=== PATIENT | male | born 1940 | race American Indian/Alaskan Native ===

== ENCOUNTER 2016-11-11 13:34 | Emergency (ER) | payer MEDICARE, OTHER ==
[2016-11-11 14:46] LABS: Basophils % (Auto) 0.6 % (0.0-1.8); Hematocrit 40.4 % (35.5-45.6); Hemoglobin 13.1 gm/dl (11.8-15.2); Mean Corpuscular HGB Conc 32 % (32-34); Mean Corpuscular Hemoglobin 28 pg (28-32); Mean Corpuscular Volume 87 fl (84-94); Platelet Count 143 K/mm3 (140-440); Red Blood Count 4.64 M/mm3 (3.65-5.03)
[2016-11-11 14:53] LABS: Anion Gap 18 mmol/L; Blood Urea Nitrogen 17 mg/dL (9-20); Calcium 9.2 mg/dL (8.4-10.2); Carbon Dioxide 25 mmol/L (22-30); Chloride 90.3 mmol/L (98-107); Potassium 5.7 mmol/L (3.6-5.0); Sodium 128 mmol/L (137-145)
[2016-11-11 14:56] LABS: Glucose 670 mg/dL (75-100)
[2016-11-11 15:30] LABS: Bilirubin,Urine NEG (Negative); Blood,Urine NEG (Negative); Ketones,Urine NEG (Negative); Leukocyte Esterase,Urine NEG (Negative); Nitrite,Urine NEG (Negative); Protein,Urine <15 mg/dL mg/dL (Negative); Urobilinogen,Urine < 2.0 mg/dL (<2.0); WBC,Urine < 1.0 /HPF (0.0-6.0)
[2016-11-11] MEDS ORDERED: NACL 0.9% 1000 ML 1,000 ML IV ONE ×2 (19:26→22:03)
--- NOTE | 2016-11-11 19:42 | Emergency Department Report ---
ED General Adult HPI - General Chief complaint: Hyperglycemia Stated complaint: BLOOD SUGAR HIGH/PAIN IN LEGS AND FEET Time Seen by Provider: 11/11/16 19:25 Source: patient Mode of arrival: Ambulatory Limitations: No Limitations - History of Present Illness Initial comments: Patient is 76 years old male history of diabetes came today with high blood sugar more than 500s when he was checked in triage was 670. Patient stated that he has been taking his 70/30 insulin 25 units daily, he stated that his diet is not as it supposed to be. He denied any fever or chest pain shortness of breath cough nausea vomiting. Patient stated that he is being going to the bathroom a lot for urination. -: Gradual - Related Data Home Medications Medication Instructions Recorded Confirmed Last Taken Aspirin [Aspirin BABY CHEW TAB] 81 mg PO QDAY 01/09/13 01/09/13 01/09/13 06:00 81mg Carvedilol [Coreg] 25 mg PO BID 01/09/13 01/09/13 01/09/13 06:00 25mg Gabapentin 300 mg PO 01/09/13 01/09/13 01/09/13 06:00 300mg Insulin NPH/Regular [NovoLIN 70/30] 25 units SQ DAILY 01/09/13 01/09/13 06:00 12.5u Sertraline [Zoloft] 100 mg PO QDAY 01/09/13 01/09/13 01/09/13 06:00 100mg Simvastatin 40 mg PO QHS 01/09/13 01/09/13 01/09/13 06:00 40mg Valsartan [Diovan] 320 mg PO QDAY 01/09/13 01/09/13 01/09/13 06:00 320mg Allergies Allergy/AdvReac Type Severity Reaction Status Date / Time No Known Allergies Allergy Verified 01/09/13 07:38 ED Review of Systems ROS: Stated complaint: BLOOD SUGAR HIGH/PAIN IN LEGS AND FEET Other details as noted in HPI Comment: All other systems reviewed and negative Constitutional: denies: see HPI, fever Eyes: denies: eye pain Respiratory: denies: cough, shortness of breath Cardiovascular: denies: chest pain, palpitations Gastrointestinal: denies: abdominal pain, nausea, vomiting Musculoskeletal: denies: back pain Neurological: denies: headache, weakness ED Past Medical Hx - Past Medical History Hx Heart Attack/AMI: Yes (2003) Hx Diabetes: Yes Hx Arthritis: Yes - Surgical History Hx Coronary Stent: Yes Hx Internal Defibrillator: Yes - Social History Smoking Status: Never Smoker Substance Use Type: None - Medications Home Medications: Home Medications Medication Instructions Recorded Confirmed Last Taken Type Aspirin [Aspirin BABY CHEW TAB] 81 mg PO QDAY 01/09/13 01/09/13 01/09/13 06:00 History 81mg Carvedilol [Coreg] 25 mg PO BID 01/09/13 01/09/13 01/09/13 06:00 History 25mg Gabapentin 300 mg PO 01/09/13 01/09/13 01/09/13 06:00 History 300mg Insulin NPH/Regular [NovoLIN 70/30] 25 units SQ DAILY 01/09/13 01/09/13 06:00 History 12.5u Sertraline [Zoloft] 100 mg PO QDAY 01/09/13 01/09/13 01/09/13 06:00 History 100mg Simvastatin 40 mg PO QHS 01/09/13 01/09/13 01/09/13 06:00 History 40mg Valsartan [Diovan] 320 mg PO QDAY 01/09/13 01/09/13 01/09/13 06:00 History 320mg ED Physical Exam - General Limitations: No Limitations General appearance: alert - Head Head exam: Present: atraumatic, normocephalic - Eye Eye exam: Present: normal appearance - ENT ENT exam: Present: normal exam, mucous membranes dry - Neck Neck exam: Present: normal inspection, full ROM. Absent: tenderness, meningismus, lymphadenopathy, thyromegaly - Respiratory Respiratory exam: Present: normal lung sounds bilaterally. Absent: respiratory distress, wheezes, rales, rhonchi, chest wall tenderness, accessory muscle use, decreased breath sounds, prolonged expiratory - Cardiovascular Cardiovascular Exam: Absent: regular rate, normal rhythm, normal heart sounds - GI/Abdominal GI/Abdominal exam: Present: soft, normal bowel sounds. Absent: distended, tenderness, guarding, rebound, rigid, organomegaly, mass, bruit, pulsatile mass , hernia - Extremities Exam Extremities exam: Present: normal inspection. Absent: tenderness - Back Exam Back exam: Present: normal inspection. Absent: CVA tenderness (R), CVA tenderness (L) - Neurological Exam Neurological exam: Present: alert, oriented X3, CN II-XII intact, normal gait. Absent: abnormal gait, motor sensory deficit - Skin Skin exam: Present: warm, dry, intact ED Course Vital Signs 11/11/16 11/11/16 11/11/16 14:14 20:00 23:13 Temperature 98.5 F 97.4 F L 98.0 F Pulse Rate 84 55 L 72 Respiratory 16 16 Rate Blood Pressure 168/79 Blood Pressure 151/50 121/98 [Right] O2 Sat by Pulse 100 100 98 Oximetry - Reevaluation(s) Reevaluation #1: 11/11/16 22:48 Patient blood [id number]. ED Medical Decision Making - Lab Data Result diagrams: 11/11/16 14:22 11/11/16 14:22 - EKG Data -: EKG Interpreted by Me EKG shows normal: sinus rhythm Rate: bradycardia - EKG Data Interpretation: no acute changes - Medical Decision Making Patient improved the blood sugar of 237. I discussed with the patient the importance of controlling his blood sugar and to stick to a diabetic diet, patient understood. I asked the patient to follow up with his primary care physician for adjustment of his insulin dose. Critical care attestation.: If time is entered above; I have spent that time in minutes in the direct care of this critically ill patient, excluding procedure time. ED Disposition Clinical Impression: Hyperglycemia, Dehydration Disposition: DC-01 TO HOME OR SELFCARE Is pt being admited?: No Condition: Stable Instructions: Diabetic Hyperglycemia (ED) Referrals: YOANDY ASHBY MD [Primary Care Provider] - 3-5 Days
[2016-11-11 23:15] VITALS: BP 121/98
== END 2016-11-11 23:13 | disposition home or self-care (01) ==
LOC: ED 13:34
DX: E11.65 Type 2 diabetes mellitus with hyperglycemia (principal); E86.0 Dehydration; I50.9 Heart failure, unspecified
CPT/HCPCS: 36415; 80048; 81001; 82805; 82962; 84484; 85025; 93005; 93010; 96361; 96374; 99284; J7030; J1815

== ENCOUNTER 2018-08-30 09:34 | Inpatient (IN) | payer MEDICARE, OTHER ==
[2018-08-30] MEDS ORDERED: PROTONIX IV ONE (11:03)
[2018-08-30] MEDS ORDERED: NACL 0.9% 1000 ML 1,000 ML IV ONE (11:03)
--- NOTE | 2018-08-30 11:10 | Emergency Department Report ---
HPI - General Chief Complaint: Abdominal Pain Time Seen by Provider: 08/30/18 10:46 - HPI HPI: Room 1 The patient is a 78 year old male presenting with a chief complaint of dizziness. The patient states the past 2 days intermittent dizziness. Patient states he has fallen and lost consciousness several times. The patient states yesterday had an episode of nausea and vomiting black colored emesis. The patient states he started having black stools yesterday but a visit to taking aren't supplements. Patient states she is having left flank pain since last night and he believes he bruised his ribs during this fall. Patient gives his pain is score of 8/10 Location: [See above] Duration: [See above] Quality: [See above] Severity: [See above] Modifying factors: [see above] Context: [see above] Mode of transportation: [not driving] ED Past Medical Hx - Past Medical History Previous Medical History?: Yes Hx Heart Attack/AMI: Yes (2003) Hx Diabetes: Yes Hx Arthritis: Yes - Surgical History Hx Coronary Stent: Yes Hx Internal Defibrillator: Yes - Family History Family history: no significant - Social History Smoking Status: Current Every Day Smoker Substance Use Type: Alcohol - Medications Home Medications: Home Medications Medication Instructions Recorded Confirmed Last Taken Type Carvedilol [Coreg] 25 mg PO BID 01/09/13 08/30/18 01/09/13 06:00 History 25mg Gabapentin 300 mg PO TID 01/09/13 08/30/18 01/09/13 06:00 History 300mg Insulin NPH/Regular [NovoLIN 70/30] 25 units SUB-Q DAILY 01/09/13 08/30/18 08/29/18 History Sertraline [Zoloft] 100 mg PO QDAY 01/09/13 08/30/18 01/09/13 06:00 History 100mg Simvastatin 40 mg PO QHS 01/09/13 08/30/18 01/09/13 06:00 History 40mg Doxazosin Mesylate [Cardura] 2 mg PO BID 08/30/18 08/30/18 Unknown History Losartan [Cozaar] 100 mg PO QDAY 08/30/18 08/30/18 Unknown History Naltrexone HCl 50 mg PO QDAY 08/30/18 08/30/18 Unknown History ED Review of Systems ROS: Stated complaint: DIZZYNESS Other details as noted in HPI Constitutional: no symptoms reported Eyes: denies: eye pain ENT: denies: throat pain Respiratory: no symptoms reported Cardiovascular: denies: chest pain Endocrine: no symptoms reported Gastrointestinal: nausea, vomiting, melena Genitourinary: denies: dysuria Musculoskeletal: denies: back pain Neurological: denies: headache Physical Exam - Physical Exam Vital Signs: Vital Signs 08/30/18 08/30/18 10:29 10:39 Temperature 98.2 F Pulse Rate 114 H Respiratory 18 18 Rate Blood Pressure 139/89 Blood Pressure 139/89 [Right] O2 Sat by Pulse 98 98 Oximetry Physical Exam: GENERAL: The patient is well-developed well-nourished male lying on stretcher not appearing to be in acute distress. [] HEENT: Normocephalic. Atraumatic. Extraocular motions are intact. Patient has moist mucous membranes. NECK: Supple. Trachea midline CHEST/LUNGS: Clear to auscultation. There is no respiratory distress noted. HEART/CARDIOVASCULAR: Regular. There is tachycardia. There is no gallop rub or murmur. ABDOMEN: Abdomen is soft, nontender. Patient has normal bowel sounds. There is no abdominal distention. SKIN: There is no rash. There is no edema. There is no diaphoresis. NEURO: The patient is awake, alert, and oriented. The patient is cooperative. The patient has normal speech MUSCULOSKELETAL: There is no evidence of acute injury. RECTAL: Melena, guaiac positive ED Course Vital Signs 08/30/18 08/30/18 10:29 10:39 Temperature 98.2 F Pulse Rate 114 H Respiratory 18 18 Rate Blood Pressure 139/89 Blood Pressure 139/89 [Right] O2 Sat by Pulse 98 98 Oximetry - Consultations Consultation #1: 08/30/18 12:05 GI paged- case discussed with [facility] Medical Decision Making - Lab Data Result diagrams: 08/30/18 11:15 08/30/18 11:15 Laboratory Tests 08/30/18 08/30/18 08/30/18 11:15 11:15 11:15 WBC 12.4 H RBC 3.37 L Hgb 11.0 L Hct 32.1 L MCV 95 H MCH 33 H MCHC 34 RDW 15.1 Plt Count 210 Lymph % (Auto) 8.9 L [place] % (Auto) 5.9 Eos % (Auto) 0.1 Baso % (Auto) 0.2 Lymph # 1.1 L [place] # 0.7 Eos # 0.0 Baso # 0.0 Seg Neutrophils % 84.9 H Seg Neutrophils # 10.5 H PT 13.9 INR 1.10 APTT 25.4 VBG pH Sodium 134 L Potassium 4.3 Chloride 97.7 L Carbon Dioxide 20 L Anion Gap 21 BUN 74 H Creatinine 1.8 H Estimated GFR 45 BUN/Creatinine Ratio 41 Glucose 417 H POC Glucose Calcium 8.9 Total Bilirubin 1.00 AST 26 ALT 19 Alkaline Phosphatase 50 Total Protein 6.6 Albumin 3.6 L Albumin/Globulin Ratio 1.2 Urine Color Urine Turbidity Urine pH Ur Specific [place] Urine Protein Urine Glucose (UA) Urine Ketones Urine Blood Urine Nitrite Urine Bilirubin Urine Urobilinogen Ur Leukocyte Esterase Urine WBC (Auto) Urine RBC (Auto) U Epithel Cells (Auto) Hyaline Casts Urine Mucus Blood Type Antibody Screen 08/30/18 08/30/18 08/30/18 11:15 11:15 12:56 WBC RBC Hgb Hct MCV MCH MCHC RDW Plt Count Lymph % (Auto) [place] % (Auto) Eos % (Auto) Baso % (Auto) Lymph # [place] # Eos # Baso # Seg Neutrophils % Seg Neutrophils # PT INR APTT VBG pH 7.390 Sodium Potassium Chloride Carbon Dioxide Anion Gap BUN Creatinine Estimated GFR BUN/Creatinine Ratio Glucose POC Glucose 367 H Calcium Total Bilirubin AST ALT Alkaline Phosphatase Total Protein Albumin Albumin/Globulin Ratio Urine Color Urine Turbidity Urine pH Ur Specific [place] Urine Protein Urine Glucose (UA) Urine Ketones Urine Blood Urine Nitrite Urine Bilirubin Urine Urobilinogen Ur Leukocyte Esterase Urine WBC (Auto) Urine RBC (Auto) U Epithel Cells (Auto) Hyaline Casts Urine Mucus Blood Type O POSITIVE Antibody Screen Negative 08/30/18 Unknown WBC RBC Hgb Hct MCV MCH MCHC RDW Plt Count Lymph % (Auto) [place] % (Auto) Eos % (Auto) Baso % (Auto) Lymph # [place] # Eos # Baso # Seg Neutrophils % Seg Neutrophils # PT INR APTT VBG pH Sodium Potassium Chloride Carbon Dioxide Anion Gap BUN Creatinine Estimated GFR BUN/Creatinine Ratio Glucose POC Glucose Calcium Total Bilirubin AST ALT Alkaline Phosphatase Total Protein Albumin Albumin/Globulin Ratio Urine Color Yellow Urine Turbidity Slightly-cloudy Urine pH 5.0 Ur Specific [place] 1.019 Urine Protein 30 mg/dl Urine Glucose (UA) 50 Urine Ketones Neg Urine Blood Neg Urine Nitrite Neg Urine Bilirubin Neg Urine Urobilinogen < 2.0 Ur Leukocyte Esterase Neg Urine WBC (Auto) 1.0 Urine RBC (Auto) 2.0 U Epithel Cells (Auto) 1.0 Hyaline Casts 9 Urine Mucus Few Blood Type Antibody Screen - Radiology Data Radiology results: report reviewed (chest x-ray with left rib series), image reviewed (chest x-ray with left rib series) interpreted by me: Chest x-ray with left rib series. No pneumothorax. No displaced rib fractures appreciated - Differential Diagnosis GI bleed Critical care attestation.: If time is entered above; I have spent that time in minutes in the direct care of this critically ill patient, excluding procedure time. ED Disposition Clinical Impression: GI bleed Disposition: OP ADMIT IP TO THIS HOSP Is pt being admited?: Yes Does the pt Need Aspirin: No Condition: Fair Time of Disposition: 12:05 (hospitalist paged (Dr Larson))
[2018-08-30 11:31] LABS: Basophils % (Auto) 0.2 % (0.0-1.8); Eosinophils % (Auto) 0.1 % (0.0-4.3); Hematocrit 32.1 % (35.5-45.6); Lymphocytes # (Auto) 1.1 K/mm3 (1.2-5.4); Lymphocytes % (Auto) 8.9 % (13.4-35.0); Mean Corpuscular HGB Conc 34 % (32-34); Mean Corpuscular Volume 95 fl (84-94); Monocytes # (Auto) 0.7 K/mm3 (0.0-0.8); Monocytes % (Auto) 5.9 % (0.0-7.3); Platelet Count 210 K/mm3 (140-440); Red Blood Count 3.37 M/mm3 (3.65-5.03); Red Cell Distribution Width 15.1 % (13.2-15.2)
[2018-08-30 11:45] LABS: INR 1.1 (0.87-1.13)
[2018-08-30 11:46] LABS: Partial Thromboplastin Time 25.4 Sec. (24.2-36.6)
[2018-08-30 11:54] LABS: Albumin 3.6 g/dL (3.9-5); Calcium 8.9 mg/dL (8.4-10.2)
[2018-08-30 11:54] LABS: Bilirubin,Urine NEG (Negative); Blood,Urine NEG (Negative); Color,Urine Yellow (Yellow); Hyaline Casts,Urine 9 /LPF; Mucus,Urine FEW /HPF; Urobilinogen,Urine < 2.0 mg/dL (<2.0)
--- NOTE | 2018-08-30 13:00 | XRay Report ---
LEFT RIBS WITH AP CHEST HISTORY: Fall and left rib pain. COMPARISON: None. TECHNIQUE: 4 views were obtained. FINDINGS: Bones: No fracture or dislocation. Joint spaces: Maintained. Soft tissues: No significant abnormality. Additional findings: Normal heart with an AICD lead. The lungs are normally expanded and clear. Delfina l pulmonary vasculature. No pneumothorax. IMPRESSION: 1. No rib fracture. 2. No acute cardiopulmonary process. Signer Name: Corona Oliveros MD Signed: 08/30/2018 12:56 PM Workstation Name: [id number]
--- NOTE | 2018-08-30 13:28 | Gastroenterology Consultation ---
History of Present Illness - Reason for Consult Consult date: 08/30/18 GI bleed, melena Requesting physician: ANTONIO RUDOLPH - History of Present Illness Patient is a 78 y/o male with PMH of DM, HLD, and NC/CHF (s/p AICD) who presented to ED with c/o coffee-ground emesis and black stools that began yesterday with associated dizziness to which GI has been consulted. This afternoon patient was resting on stretcher in ED in mild distress (tachycardia/slight hypotension). Reports 1 episode of black colored emesis yesterday with multiple episode of black stool that have continued today (melena noted upon rectal exam by ER provider). No hematemesis or hematochezia. Denies fever, wt loss, CP, SOB, abdominal pain (has left flank pain s/p fall overnight), diarrhea, or constipation. Takes a daily ASA. Has a hx of prior GI bleeding in 2003 per patient report with etiology unknown. No known hx of PUD or liver disease. Last colonoscopy by Dr. Marmolejo in our group was in 2017 that showed severe diverticulosis and external/internal hemorrhoids. Past History Past Medical History: other (as per HPI) Past Surgical History: Other (AICD) Social history: smoking, other (alcohol) Medications and Allergies Allergies Allergy/AdvReac Type Severity Reaction Status Date / Time No Known Allergies Allergy Verified 01/09/13 07:38 Home Medications Medication Instructions Recorded Confirmed Last Taken Type Carvedilol [Coreg] 25 mg PO BID 01/09/13 08/30/18 01/09/13 06:00 History 25mg Gabapentin 300 mg PO TID 01/09/13 08/30/18 01/09/13 06:00 History 300mg Insulin NPH/Regular [NovoLIN 70/30] 25 units SUB-Q DAILY 01/09/13 08/30/18 08/29/18 History Sertraline [Zoloft] 100 mg PO QDAY 01/09/13 08/30/18 01/09/13 06:00 History 100mg Simvastatin 40 mg PO QHS 01/09/13 08/30/18 01/09/13 06:00 History 40mg Doxazosin Mesylate [Cardura] 2 mg PO BID 08/30/18 08/30/18 Unknown History Losartan [Cozaar] 100 mg PO QDAY 08/30/18 08/30/18 Unknown History Naltrexone HCl 50 mg PO QDAY 08/30/18 08/30/18 Unknown History Active Meds: Active Medications Pantoprazole Sodium 80 mg/ (Sodium Chloride) 100 mls @ 10 mls/hr IV DIRECT CANDIE medications reviewed/updated as required Review of Systems - Review of Systems All systems: negative Gastrointestinal: coffee ground emesis, melena Exam - Constitutional Vital Signs: Temp Pulse Resp BP Pulse Ox 98.2 F 108 H 23 102/69 98 08/30/18 10:29 08/30/18 12:15 08/30/18 12:15 08/30/18 12:15 08/30/18 12:15 General appearance: mild distress - Respiratory Respiratory effort: normal - Cardiovascular Rhythm: other (tachycardia) - Gastrointestinal General gastrointestinal: Present: soft, non-tender, non-distended, normal bowel sounds - Neurologic Neurological: alert and oriented x3 - Labs CBC & Chem 7: 08/30/18 11:15 08/30/18 11:15 Lab Results: Laboratory Results - last 24 hr 08/30/18 08/30/18 08/30/18 11:15 11:15 11:15 WBC 12.4 H RBC 3.37 L Hgb 11.0 L Hct 32.1 L MCV 95 H MCH 33 H MCHC 34 RDW 15.1 Plt Count 210 Lymph % (Auto) 8.9 L [place] % (Auto) 5.9 Eos % (Auto) 0.1 Baso % (Auto) 0.2 Lymph # 1.1 L [place] # 0.7 Eos # 0.0 Baso # 0.0 Seg Neutrophils % 84.9 H Seg Neutrophils # 10.5 H PT 13.9 INR 1.10 APTT 25.4 VBG pH Sodium 134 L Potassium 4.3 Chloride 97.7 L Carbon Dioxide 20 L Anion Gap 21 BUN 74 H Creatinine 1.8 H Estimated GFR 45 BUN/Creatinine Ratio 41 Glucose 417 H POC Glucose Calcium 8.9 Total Bilirubin 1.00 AST 26 ALT 19 Alkaline Phosphatase 50 Total Protein 6.6 Albumin 3.6 L Albumin/Globulin Ratio 1.2 Urine Color Urine Turbidity Urine pH Ur Specific [place] Urine Protein Urine Glucose (UA) Urine Ketones Urine Blood Urine Nitrite Urine Bilirubin Urine Urobilinogen Ur Leukocyte Esterase Urine WBC (Auto) Urine RBC (Auto) U Epithel Cells (Auto) Hyaline Casts Urine Mucus Blood Type Antibody Screen 08/30/18 08/30/18 08/30/18 11:15 11:15 12:56 WBC RBC Hgb Hct MCV MCH MCHC RDW Plt Count Lymph % (Auto) [place] % (Auto) Eos % (Auto) Baso % (Auto) Lymph # [place] # Eos # Baso # Seg Neutrophils % Seg Neutrophils # PT INR APTT VBG pH 7.390 Sodium Potassium Chloride Carbon Dioxide Anion Gap BUN Creatinine Estimated GFR BUN/Creatinine Ratio Glucose POC Glucose 367 H Calcium Total Bilirubin AST ALT Alkaline Phosphatase Total Protein Albumin Albumin/Globulin Ratio Urine Color Urine Turbidity Urine pH Ur Specific [place] Urine Protein Urine Glucose (UA) Urine Ketones Urine Blood Urine Nitrite Urine Bilirubin Urine Urobilinogen Ur Leukocyte Esterase Urine WBC (Auto) Urine RBC (Auto) U Epithel Cells (Auto) Hyaline Casts Urine Mucus Blood Type O POSITIVE Antibody Screen Negative 08/30/18 Unknown WBC RBC Hgb Hct MCV MCH MCHC RDW Plt Count Lymph % (Auto) [place] % (Auto) Eos % (Auto) Baso % (Auto) Lymph # [place] # Eos # Baso # Seg Neutrophils % Seg Neutrophils # PT INR APTT VBG pH Sodium Potassium Chloride Carbon Dioxide Anion Gap BUN Creatinine Estimated GFR BUN/Creatinine Ratio Glucose POC Glucose Calcium Total Bilirubin AST ALT Alkaline Phosphatase Total Protein Albumin Albumin/Globulin Ratio Urine Color Yellow Urine Turbidity Slightly-cloudy Urine pH 5.0 Ur Specific [place] 1.019 Urine Protein 30 mg/dl Urine Glucose (UA) 50 Urine Ketones Neg Urine Blood Neg Urine Nitrite Neg Urine Bilirubin Neg Urine Urobilinogen < 2.0 Ur Leukocyte Esterase Neg Urine WBC (Auto) 1.0 Urine RBC (Auto) 2.0 U Epithel Cells (Auto) 1.0 Hyaline Casts 9 Urine Mucus Few Blood Type Antibody Screen Assessment and Plan 1.UGIB 2.melena/coffee-ground emesis -H/H 11.0/32.1 -continue to monitor H/H and transfuse as needed -hold blood thinning medication -etiology-possible ulcer vs other -will schedule for EGD today -Keep NPO -start on protonix drip -continue supportive care -will follow
[2018-08-30] MEDS ORDERED: APRESOLINE IV ONE (13:57)
[2018-08-30] MEDS ORDERED: D50W (25GM) Syringe IV PRN (13:59)
[2018-08-30] MEDS ORDERED: NACL 0.9% 1000 ML 1,000 ML ONE (15:50)
--- NOTE | 2018-08-30 16:31 | Anesthesia Day of Surgery ---
Anesthesia Day of Surgery - Day of Surgery Patient Examined: Yes Patient H&P Reviewed: Yes Patient is NPO: Yes
--- NOTE | 2018-08-30 16:35 | Anesthesia Consultation ---
Anesthesia Consult and Med Hx Date of service: 08/30/18 - Airway Anesthetic Teeth Evaluation: Poor ROM Head & Neck: Adequate Mental/Hyoid Distance: Adequate Mallampati Class: Class II Intubation Access Assessment: Probably Good - Pre-Operative Health Status ASA Pre-Surgery Classification: ASA3 Proposed Anesthetic Plan: MAC - Pulmonary Hx Smoking: Yes Hx Asthma: No COPD: Yes Hx Sleep Apnea: Yes (cpap) - Cardiovascular System Hx Hypertension: Yes (high cholesterol) Hx Heart Attack/AMI: Yes (2003) Hx Percutaneous Transluminal Coronary Angioplasty (PTCA): Yes (2003) Hx Internal Defibrillator: Yes - Central Nervous System Hx Neuromuscular Disorder: Yes (left side(rib)pain from recent fall) Hx Seizures: No Hx Psychiatric Problems: Yes - Endocrine Hx Renal Disease: No Hx Liver Disease: No Hx Non-Insulin Dependent Diabetes: Yes - Hematic Hx Sickle Cell Disease: No - Other Systems Hx Cancer: No
[2018-08-30] MEDS ORDERED: XYLOCAINE MPF 2% ONE (17:00)
[2018-08-30] MEDS ORDERED: PHENYLEPHRINE/NS Syringe 1,000 MCG/10 ML IV ONE (17:00)
[2018-08-30] MEDS ORDERED: DIPRIVAN 10 MG/ML IV ONE ×2 (17:11→17:31)
[2018-08-30] MEDS ORDERED: SUBLIMAZE ONE (17:16)
[2018-08-30] MEDS ORDERED: ADRENALINE P/F IV ONE (17:49)
[2018-08-30] MEDS ORDERED: ADRENALINE P/F ONE (17:49)
[2018-08-30] MEDS ORDERED: HumuLIN R ONE (18:02)
[2018-08-30] MEDS: HumuLIN R SUB-Q SCH (22:16)
[2018-08-30] MEDS ORDERED: SODIUM CHLORIDE FLUSH SYRINGE 10 ML IV PRN (22:31)
[2018-08-30] MEDS ORDERED: TYLENOL PO PRN (22:31)
[2018-08-30] MEDS ORDERED: ZOFRAN IV PRN (22:31)
--- NOTE | 2018-08-30 22:42 | Event Note ---
Date: 08/30/18 See history and physical in the reports Upper GI bleed Hypertension Hyperlipidemia Depression
[2018-08-30] MEDS ORDERED: CATAPRES-TTS PATCH TD SCH (23:00)
--- NOTE | 2018-08-30 23:06 | Post Operative Note ---
Pre-op diagnosis: gi bleed Post-op diagnosis: same Findings: EGD: hiatal hernia - blood proximal stomach - active bleeding ulcerated area proximal lesser curvature, epi 1:10k (5 cc)/heater probe applied - negative other Procedure: EGD Anesthesia: MAC Surgeon: JUDITH MCCONNELL Estimated blood loss: none Pathology: list Specimen disposition: to lab Condition: stable Disposition: floor
--- NOTE | 2018-08-30 23:43 | History and Physical Report ---
CHIEF COMPLAINT: 1. Dizziness. 2. Vomiting black-colored vomit. 3. Melena, melanotic stools. HISTORY OF PRESENT ILLNESS: A 78-year-old male, -[place], comes in for two days of dizziness. The patient states he has fallen and lost consciousness several times in the last two days. The patient also had episode of nausea, vomiting, black-colored emesis. The patient also has black stools since yesterday, also with left flank pain. The patient's pain is about 8 on a scale of 1-10. No intake of NSAIDs, BC powders or Goody powders. PAST MEDICAL HISTORY: Significant for hypertension, diabetes, arthritis and coronary artery disease. PAST SURGICAL HISTORY: Coronary stent and internal defibrillator. FAMILY HISTORY: Hypertension. SOCIAL HISTORY: He smokes over a pack a day. Alcohol occasionally. CURRENT MEDICATIONS: Coreg 25 b.i.d., gabapentin 300 t.i.d., insulin 70/30 25 units daily, Zoloft 100 mg once a day, simvastatin 40 mg p.o. at bedtime, Cardura 2 mg b.i.d., losartan 100 mg p.o. daily and naltrexone 50 mg p.o. daily. REVIEW OF SYSTEMS: Significant for melanotic stools and vomiting dark emesis. Also, dizziness and recurrent syncope. Otherwise, review of systems negative. PHYSICAL EXAMINATION: GENERAL: Elderly male, cooperative during examination. VITAL SIGNS: Blood pressure is 105/61, temperature is 98.2, pulse is 90, respirations are 20, sats are 100%. HEENT: Unremarkable. Pupils equal and reactive. NECK: Supple, no lymphadenopathy, no thyromegaly. LUNGS: Clear to auscultation and percussion. Good air entry. CARDIOVASCULAR: S1, S2 heard. No gallop, no murmur, no rub. Apical impulse in left fifth intercostal space and midclavicular line. ABDOMEN: Soft and benign. No hepatosplenomegaly, no guarding, no rigidity. Stools are occult blood positive. EXTREMITIES: Good pedal pulses. CENTRAL NERVOUS SYSTEM: Alert and oriented x 4, nonfocal exam. LABORATORY DATA: Significant for white count of 12,400, H and H is 11.0 and 32.1, platelet count is 210,000. Sodium is 134, potassium is 4.3, chloride is 97.7, BUN and creatinine 74 and 1.8, glucose is 417 and 367. Albumin is 3.6. Urine is negative. Chest x-ray, no rib fractures. Chest x-ray, no acute findings. ASSESSMENT AND PLAN: 1. Upper gastrointestinal bleed. The patient started on Protonix drip. GI consult requested. Hemoglobin and hematocrit every 8 hours. Transfuse if necessary. 2. Recurrent syncope secondary to volume loss. No workup for syncope. 3. Hypertension. The patient has gastrointestinal bleed. We will hold the losartan and other blood pressure medications. We will start him on Catapres patch TTS-2 weekly. 4. Depression. We will hold Zoloft. 5. Hyperlipidemia. We will hold simvastatin. 6. Insulin-dependent diabetes, coverage for now with high dose sliding scale protocol. 7. Peripheral neuropathy. We will hold the gabapentin. 8. Deep venous thrombosis prophylaxis, SCDs. No Lovenox. The patient is on Protonix drip. JOB# [id number] VSTila/NTS
[2018-08-31] MEDS: HumaLOG SUB-Q SCH ×4 (01:27→19:19)
[2018-08-31] MEDS: DILAUDID IV PRN (03:32)
--- NOTE | 2018-08-31 03:34 | Operative Report ---
PROCEDURE: EGD with bleeding therapy. INDICATIONS: 1. Anemia. 2. Gastrointestinal bleed. MEDICATIONS: Propofol per PLANT UTILITY PERSON. COMPLICATIONS: None. DESCRIPTION OF PROCEDURE: The patient was brought to procedure suite. The patient had the procedure discussed with him at length. All risks, complications, and benefits discussed after which the patient signed for the procedure to be performed. The patient was placed in left lateral decubitus position. Mouth block was placed in the patient's oral cavity. After adequate sedation medication as above, endoscope placed in the mouth and brought to the level of the second portion of duodenum. Retroflexion view was performed. The patient's vital signs remained stable throughout the procedure. FINDINGS: There was noted to be medium hiatal hernia at the GE junction 38 cm from the gums. The esophagus otherwise appeared to be normal. There was moderate amount of bloody clots noted in the proximal stomach. The remaining distal stomach appeared intact. Duodenum was visualized and appeared intact. After this inspection, most of the clots were removed. There was noted to be active oozing from about 8-10 mm ulcerated inflamed area on the proximal lesser curvature. No ____ was noted, but there was active oozing and bleeding. Epinephrine 1:10,000 dilution a total of 5 mL and heater probe was applied to the area with good result. Postprocedure, the patient was satisfactory. The patient tolerated the procedure well. No complications during the procedure. IMPRESSION: 1. Hiatal hernia. 2. Otherwise, normal esophagus. 3. Clot proximal stomach, mostly removed. 4. Active bleeding, status post bleeding therapy as noted above. 5. Otherwise benign esophagogastroduodenoscopy. RECOMMENDATIONS: 1. PPI IV drip. 2. Avoid NSAID and aspirin for 7 days. 3. Follow hematocrit and transfuse as needed. 4. N.p.o. for now. 5. We will follow. JOB# [id number] CAB/NTS
[2018-08-31] MEDS: NACL 0.9% 1000 ML 1,000 ML IV SCH ×2 (03:35→17:47)
[2018-08-31 05:02] LABS: Basophils % (Auto) 0.4 % (0.0-1.8); Eosinophils % (Auto) 0.1 % (0.0-4.3); Hematocrit 23.4 % (35.5-45.6); Hemoglobin 7.9 gm/dl (11.8-15.2); Lymphocytes # (Auto) 1.4 K/mm3 (1.2-5.4); Lymphocytes % (Auto) 16.5 % (13.4-35.0); Mean Corpuscular HGB Conc 34 % (32-34); Mean Corpuscular Volume 97 fl (84-94); Monocytes # (Auto) 0.7 K/mm3 (0.0-0.8); Monocytes % (Auto) 8.6 % (0.0-7.3); Platelet Count 146 K/mm3 (140-440); Red Cell Distribution Width 15.2 % (13.2-15.2)
[2018-08-31 05:28] LABS: Alanine Aminotransferase 15 units/L (7-56); Albumin 3.1 g/dL (3.9-5); BUN/Creatinine Ratio 51; Blood Urea Nitrogen 61 mg/dL (9-20); Calcium 8.4 mg/dL (8.4-10.2); Hemolysis Index 5
[2018-08-31] MEDS: HumuLIN R SUB-Q SCH ×6 (08:11→22:31)
[2018-08-31] MEDS: PROTONIX 80 MG in NACL 0.9% 100 ML IV SCH (10:38)
[2018-08-31] MEDS: SODIUM CHLORIDE FLUSH SYRINGE 10 ML IV SCH ×2 (10:49→22:32)
--- NOTE | 2018-08-31 11:57 | Progress Note ---
Assessment and Plan Assessment and plan: Upper GI bleed - EGD was done and showed blood in the proximal stomach of the lesser curvature, there is ulcer and active bleeding - GI is following the patient - Continue IV protonix Anemia - due to the above; hemoglobin dropped from 11-7.6 but symptoms are getting better - Monitor H/H - We'll transfuse as needed Dizziness - Likely due to the above - held BP medications DVT prophylaxis - SCDs Disposition - Continue inpatient care History Interval history: patient was seen and evaluated this morning, patient denied hematemesis this morning. Dizziness is getting better. Hospitalist Physical - Physical exam Narrative exam: Not in cardiopulmonary distress. The patient appeared well nourished and normally developed. Vital signs as documented. Head exam is unremarkable. No scleral icterus . Neck is without jugular venous distension, thyromegaly, or carotid bruits. Lungs are clear to auscultation. Cardiac exam reveals regular rate and Rhythm. First and second heart sounds normal. No murmurs, rubs or gallops. Abdominal exam reveals normal bowel sounds, no masses, no organomegaly and no aortic enlargement. Extremities are nonedematous and both femoral and pedal pulses are normal. HOUSE SUPERINTENDENT: Alert and oriented 3. No focal weakness. - Constitutional Vitals: Temp Pulse Resp BP Pulse Ox 97.4 F L 93 H 18 124/52 100 08/31/18 07:35 08/31/18 07:35 08/31/18 07:35 08/31/18 07:35 08/31/18 08:17 Results - Labs CBC & Chem 7: 08/31/18 04:37 08/31/18 04:37 Labs: Laboratory Last Values WBC 8.3 K/mm3 (4.5-11.0) 08/31/18 04:37 RBC 2.40 M/mm3 (3.65-5.03) L 08/31/18 04:37 Hgb 7.9 gm/dl (11.8-15.2) L D 08/31/18 04:37 Hct 23.4 % (35.5-45.6) L D 08/31/18 04:37 MCV 97 fl (84-94) H 08/31/18 04:37 MCH 33 pg (28-32) H 08/31/18 04:37 MCHC 34 % (32-34) 08/31/18 04:37 RDW 15.2 % (13.2-15.2) 08/31/18 04:37 Plt Count 146 K/mm3 (140-440) 08/31/18 04:37 Lymph % (Auto) 16.5 % (13.4-35.0) 08/31/18 04:37 [place] % (Auto) 8.6 % (0.0-7.3) H 08/31/18 04:37 Eos % (Auto) 0.1 % (0.0-4.3) 08/31/18 04:37 Baso % (Auto) 0.4 % (0.0-1.8) 08/31/18 04:37 Lymph # 1.4 K/mm3 (1.2-5.4) 08/31/18 04:37 [place] # 0.7 K/mm3 (0.0-0.8) 08/31/18 04:37 Eos # 0.0 K/mm3 (0.0-0.4) 08/31/18 04:37 Baso # 0.0 K/mm3 (0.0-0.1) 08/31/18 04:37 Seg Neutrophils % 74.4 % (40.0-70.0) H 08/31/18 04:37 Seg Neutrophils # 6.2 K/mm3 (1.8-7.7) 08/31/18 04:37 PT 13.9 Sec. (12.2-14.9) 08/30/18 11:15 INR 1.10 (0.87-1.13) 08/30/18 11:15 APTT 25.4 Sec. (24.2-36.6) 08/30/18 11:15 VBG pH 7.390 (7.320-7.420) 08/30/18 11:15 Sodium 144 mmol/L (137-145) D 08/31/18 04:37 Potassium 4.3 mmol/L (3.6-5.0) 08/31/18 04:37 Chloride 110.5 mmol/L (98-107) H 08/31/18 04:37 Carbon Dioxide 23 mmol/L (22-30) 08/31/18 04:37 15 mmol/L 08/31/18 04:37 BUN 61 mg/dL (9-20) H 08/31/18 04:37 1.2 mg/dL (0.8-1.5) 08/31/18 04:37 Estimated GFR > 60 ml/min 08/31/18 04:37 51 % 08/31/18 04:37 Glucose 196 mg/dL (75-100) H 08/31/18 04:37 POC Glucose 173 (70-105) H 08/31/18 11:39 6.2 % (4-6) H 08/31/18 04:37 Calcium 8.4 mg/dL (8.4-10.2) 08/31/18 04:37 0.70 mg/dL (0.1-1.2) 08/31/18 04:37 AST 20 units/L (5-40) 08/31/18 04:37 ALT 15 units/L (7-56) 08/31/18 04:37 42 units/L (35-129) 08/31/18 04:37 5.9 g/dL (6.3-8.2) L 08/31/18 04:37 3.1 g/dL (3.9-5) L 08/31/18 04:37 1.1 % 08/31/18 04:37 Yellow (Yellow) 08/30/18 Unknown Slightly-cloudy (Clear) 08/30/18 Unknown 5.0 (5.0-7.0) 08/30/18 Unknown Ur Specific [place] 1.019 (1.003-1.030) 08/30/18 Unknown 30 mg/dl mg/dL (Negative) 08/30/18 Unknown 50 mg/dL (Negative) 08/30/18 Unknown Neg mg/dL (Negative) 08/30/18 Unknown Neg (Negative) 08/30/18 Unknown Neg (Negative) 08/30/18 Unknown Neg (Negative) 08/30/18 Unknown < 2.0 mg/dL (<2.0) 08/30/18 Unknown Ur Leukocyte Esterase Neg (Negative) 08/30/18 Unknown 1.0 /HPF (0.0-6.0) 08/30/18 Unknown 2.0 /HPF (0.0-6.0) 08/30/18 Unknown U Epithel Cells (Auto) 1.0 /HPF (0-13.0) 08/30/18 Unknown Hyaline Casts 9 /LPF 08/30/18 Unknown Few /HPF 08/30/18 Unknown Blood Type O POSITIVE 08/30/18 11:15 Antibody Screen Negative 08/30/18 11:15 Active Medications - Current Medications Current Medications: Generic Name Dose Route Start Last Admin Trade Name Freq PRN Reason Stop Dose Admin Acetaminophen 650 mg 08/30/18 22:31 Tylenol PO Q4H PRN Pain MILD(1-3)/Fever >100.5/SELLERS Clonidine HCl 0.2 mg 08/30/18 23:00 08/31/18 01:36 Catapres-Tts Patch TD 0.2 mg We CANDIE Administration Dextrose 50 ml 08/30/18 13:59 D50w (25gm) Syringe IV PRN PRN Hypoglycemia Hydromorphone HCl 0.5 mg 08/30/18 22:31 08/31/18 03:32 Dilaudid IV 0.5 mg Q3H PRN Administration Pain , Severe (7-10) Pantoprazole Sodium 80 mg/ 100 mls @ 10 mls/hr 08/30/18 14:00 08/31/18 10:38 Sodium Chloride IV 8 mg/hr DIRECT CANDIE 10 mls/hr Administration 8 MG/HR Sodium Chloride 1,000 mls @ 75 mls/hr 08/30/18 23:00 08/31/18 03:35 Nacl 0.9% 1000 Ml IV 75 mls/hr DIRECT CANDIE Administration Insulin Human Lispro 0 unit 08/31/18 00:00 08/31/18 06:48 Humalog SUB-Q 4 unit Q6HR CANDIE Administration Protocol Insulin Human Regular 0 units 08/30/18 16:30 08/31/18 08:45 Humulin R SUB-Q Not Given ACHS CANDIE Protocol Ondansetron HCl 4 mg 08/30/18 22:31 Zofran IV Q8H PRN Nausea And Vomiting Sodium Chloride 10 ml 08/31/18 10:00 08/31/18 10:49 Sodium Chloride Flush Syringe 10 Ml IV 10 ml BID CANDIE Administration Sodium Chloride 10 ml 08/30/18 22:31 Sodium Chloride Flush Syringe 10 Ml IV PRN PRN LINE FLUSH
--- NOTE | 2018-08-31 12:01 | Gastroenterology Progress Note ---
Assessment and Plan 1.UGIB 2.melena/coffee-ground emesis -H/H 7.9/24.4-trended down from admission -continue to monitor H/H and transfuse as needed -hold blood thinning medication -s/p EGD yesterday that revealed a hiatal hernia, blood proximal stomach, and active bleeding ulcerated area proximal lesser curvature (s/p tx with epi/heater probe) -bx results pending -clinically, patient is stable with no active signs of bleeding overnight or this am. Denies abd pain or N/V. -okay to start on clears -continue PPI and supportive care -will follow Subjective Date of service: 08/31/18 Principal diagnosis: GI bleed Interval history: Patient resting in bed this am w/o acute distress and at bedside. Reports no further active signs of bleeding overnight or this am. Denies abd pain or N/v. requesting ice chips. Objective - Constitutional Vitals: Temp Pulse Resp BP Pulse Ox 97.4 F L 93 H 18 124/52 100 08/31/18 07:35 08/31/18 07:35 08/31/18 07:35 08/31/18 07:35 08/31/18 08:17 General appearance: no acute distress - Respiratory Respiratory effort: normal - Cardiovascular Rhythm: regular - Gastrointestinal General gastrointestinal: Present: soft, non-tender, non-distended, normal bowel sounds - Neurologic Neurological: alert and oriented x3 - Labs CBC & Chem 7: 08/31/18 04:37 08/31/18 04:37 Labs: Laboratory Results - last 24 hr 08/30/18 08/30/18 08/30/18 11:15 11:15 12:56 WBC RBC Hgb Hct MCV MCH MCHC RDW Plt Count Lymph % (Auto) [place] % (Auto) Eos % (Auto) Baso % (Auto) Lymph # [place] # Eos # Baso # Seg Neutrophils % Seg Neutrophils # Sodium 134 L Potassium 4.3 Chloride 97.7 L Carbon Dioxide 20 L Anion Gap 21 BUN 74 H Creatinine 1.8 H Estimated GFR 45 BUN/Creatinine Ratio 41 Glucose 417 H POC Glucose 367 H Hemoglobin A1c Calcium 8.9 Total Bilirubin 1.00 AST 26 ALT 19 Alkaline Phosphatase 50 Total Protein 6.6 Albumin 3.6 L Albumin/Globulin Ratio 1.2 Urine Color Urine Turbidity Urine pH Ur Specific [place] Urine Protein Urine Glucose (UA) Urine Ketones Urine Blood Urine Nitrite Urine Bilirubin Urine Urobilinogen Ur Leukocyte Esterase Urine WBC (Auto) Urine RBC (Auto) U Epithel Cells (Auto) Hyaline Casts Urine Mucus Blood Type O POSITIVE Antibody Screen Negative 08/30/18 08/30/18 08/30/18 17:27 21:52 Unknown WBC RBC Hgb Hct MCV MCH MCHC RDW Plt Count Lymph % (Auto) [place] % (Auto) Eos % (Auto) Baso % (Auto) Lymph # [place] # Eos # Baso # Seg Neutrophils % Seg Neutrophils # Sodium Potassium Chloride Carbon Dioxide Anion Gap BUN Creatinine Estimated GFR BUN/Creatinine Ratio Glucose POC Glucose 397 H 149 H Hemoglobin A1c Calcium Total Bilirubin AST ALT Alkaline Phosphatase Total Protein Albumin Albumin/Globulin Ratio Urine Color Yellow Urine Turbidity Slightly-cloudy Urine pH 5.0 Ur Specific [place] 1.019 Urine Protein 30 mg/dl Urine Glucose (UA) 50 Urine Ketones Neg Urine Blood Neg Urine Nitrite Neg Urine Bilirubin Neg Urine Urobilinogen < 2.0 Ur Leukocyte Esterase Neg Urine WBC (Auto) 1.0 Urine RBC (Auto) 2.0 U Epithel Cells (Auto) 1.0 Hyaline Casts 9 Urine Mucus Few Blood Type Antibody Screen 08/31/18 08/31/18 08/31/18 04:37 04:37 04:37 WBC 8.3 RBC 2.40 L Hgb 7.9 L D Hct 23.4 L D MCV 97 H MCH 33 H MCHC 34 RDW 15.2 Plt Count 146 Lymph % (Auto) 16.5 [place] % (Auto) 8.6 H Eos % (Auto) 0.1 Baso % (Auto) 0.4 Lymph # 1.4 [place] # 0.7 Eos # 0.0 Baso # 0.0 Seg Neutrophils % 74.4 H Seg Neutrophils # 6.2 Sodium 144 D Potassium 4.3 Chloride 110.5 H Carbon Dioxide 23 Anion Gap 15 BUN 61 H Creatinine 1.2 Estimated GFR > 60 BUN/Creatinine Ratio 51 Glucose 196 H POC Glucose Hemoglobin A1c 6.2 H Calcium 8.4 Total Bilirubin 0.70 AST 20 ALT 15 Alkaline Phosphatase 42 Total Protein 5.9 L Albumin 3.1 L Albumin/Globulin Ratio 1.1 Urine Color Urine Turbidity Urine pH Ur Specific [place] Urine Protein Urine Glucose (UA) Urine Ketones Urine Blood Urine Nitrite Urine Bilirubin Urine Urobilinogen Ur Leukocyte Esterase Urine WBC (Auto) Urine RBC (Auto) U Epithel Cells (Auto) Hyaline Casts Urine Mucus Blood Type Antibody Screen 08/31/18 08/31/18 08/31/18 05:44 07:43 11:39 WBC RBC Hgb Hct MCV MCH MCHC RDW Plt Count Lymph % (Auto) [place] % (Auto) Eos % (Auto) Baso % (Auto) Lymph # [place] # Eos # Baso # Seg Neutrophils % Seg Neutrophils # Sodium Potassium Chloride Carbon Dioxide Anion Gap BUN Creatinine Estimated GFR BUN/Creatinine Ratio Glucose POC Glucose 212 H 217 H 173 H Hemoglobin A1c Calcium Total Bilirubin AST ALT Alkaline Phosphatase Total Protein Albumin Albumin/Globulin Ratio Urine Color Urine Turbidity Urine pH Ur Specific [place] Urine Protein Urine Glucose (UA) Urine Ketones Urine Blood Urine Nitrite Urine Bilirubin Urine Urobilinogen Ur Leukocyte Esterase Urine WBC (Auto) Urine RBC (Auto) U Epithel Cells (Auto) Hyaline Casts Urine Mucus Blood Type Antibody Screen
[2018-08-31 12:49] LABS: Hematocrit 20.9 % (35.5-45.6); Hemoglobin 7.2 gm/dl (11.8-15.2)
[2018-09-01] MEDS: NACL 0.9% 1000 ML 1,000 ML IV SCH (06:41)
[2018-09-01] MEDS: HumuLIN R SUB-Q SCH ×4 (08:12→22:33)
[2018-09-01 08:17] LABS: Basophils % (Auto) 0.6 % (0.0-1.8); Eosinophils # (Auto) 0.1 K/mm3 (0.0-0.4); Hemoglobin 6.7 gm/dl (11.8-15.2); Lymphocytes # (Auto) 1.8 K/mm3 (1.2-5.4); Lymphocytes % (Auto) 26.1 % (13.4-35.0); Mean Corpuscular HGB Conc 34 % (32-34); Mean Corpuscular Volume 99 fl (84-94); Monocytes # (Auto) 0.5 K/mm3 (0.0-0.8); Monocytes % (Auto) 7.3 % (0.0-7.3); Platelet Count 125 K/mm3 (140-440); Red Blood Count 2.01 M/mm3 (3.65-5.03); Red Cell Distribution Width 15.1 % (13.2-15.2)
[2018-09-01 08:21] LABS: Hematocrit 19.9 % (35.5-45.6)
[2018-09-01 08:41] LABS: BUN/Creatinine Ratio 33; Blood Urea Nitrogen 26 mg/dL (9-20); Calcium 8.3 mg/dL (8.4-10.2); Hemolysis Index 2
[2018-09-01] MEDS ORDERED: NACL 0.9% 500 ML 500 ML IV NR (09:00)
--- NOTE | 2018-09-01 10:13 | Gastroenterology Progress Note ---
Assessment and Plan 1.UGIB 2.melena/coffee-ground emesis -H/H 6.7/19.9-trending down-blood transfusion pending -continue to monitor H/H and transfuse as needed -hold blood thinning medication -s/p EGD yesterday that revealed a hiatal hernia, blood proximal stomach, and active bleeding ulcerated area proximal lesser curvature (s/p tx with epi/heater probe) -bx results pending -clinically, patient is HD stable with no active signs of bleeding overnight or this am. Denies abd pain or N/V. -will order bleeding scan to r/o active bleeding -consider repeat EGD based on results -continue clears for now -continue PPI and supportive care -will follow Subjective Date of service: 09/01/18 Principal diagnosis: GI bleed Interval history: Patient sitting up in bed this am w/o acute distress eating breakfast. Denies active signs of bleeding overnight or this am. No abd pain or N/V. Objective - Constitutional Vitals: Temp Pulse Resp BP Pulse Ox 97.9 F 76 18 176/89 98 09/01/18 07:33 09/01/18 02:29 09/01/18 08:14 09/01/18 07:33 09/01/18 08:14 General appearance: no acute distress - EENT Eyes: PERRL, EOM intact ENT: hearing intact - Respiratory Respiratory effort: normal - Cardiovascular Rhythm: regular Heart Sounds: Present: S1 & S2 - Gastrointestinal General gastrointestinal: Present: soft, non-tender, non-distended, normal bowel sounds - Neurologic Neurological: alert and oriented x3 - Labs CBC & Chem 7: 09/01/18 08:05 09/01/18 08:05 Labs: Laboratory Results - last 24 hr 08/30/18 08/31/18 08/31/18 11:15 11:39 11:58 WBC RBC Hgb 7.2 L Hct 20.9 L MCV MCH MCHC RDW Plt Count Lymph % (Auto) [place] % (Auto) Eos % (Auto) Baso % (Auto) Lymph # [place] # Eos # Baso # Seg Neutrophils % Seg Neutrophils # Sodium Potassium Chloride Carbon Dioxide Anion Gap BUN Creatinine Estimated GFR BUN/Creatinine Ratio Glucose POC Glucose 173 H Calcium Blood Type O POSITIVE Antibody Screen Negative Crossmatch See Detail 08/31/18 08/31/18 09/01/18 16:32 21:46 07:40 WBC RBC Hgb Hct MCV MCH MCHC RDW Plt Count Lymph % (Auto) [place] % (Auto) Eos % (Auto) Baso % (Auto) Lymph # [place] # Eos # Baso # Seg Neutrophils % Seg Neutrophils # Sodium Potassium Chloride Carbon Dioxide Anion Gap BUN Creatinine Estimated GFR BUN/Creatinine Ratio Glucose POC Glucose 176 H 226 H 147 H Calcium Blood Type Antibody Screen Crossmatch 09/01/18 09/01/18 08:05 08:05 WBC 6.7 RBC 2.01 L Hgb 6.7 L Hct 19.9 L* MCV 99 H MCH 33 H MCHC 34 RDW 15.1 Plt Count 125 L Lymph % (Auto) 26.1 [place] % (Auto) 7.3 Eos % (Auto) 2.0 Baso % (Auto) 0.6 Lymph # 1.8 [place] # 0.5 Eos # 0.1 Baso # 0.0 Seg Neutrophils % 64.0 Seg Neutrophils # 4.3 Sodium 139 Potassium 3.7 Chloride 106.8 Carbon Dioxide 23 Anion Gap 13 BUN 26 H Creatinine 0.8 Estimated GFR > 60 BUN/Creatinine Ratio 33 Glucose 142 H POC Glucose Calcium 8.3 L Blood Type Antibody Screen Crossmatch
[2018-09-01] MEDS: SODIUM CHLORIDE FLUSH SYRINGE 10 ML IV SCH ×2 (10:49→22:05)
[2018-09-01] MEDS: PROTONIX 80 MG in NACL 0.9% 100 ML IV SCH (10:50)
--- NOTE | 2018-09-01 13:43 | Nuclear Medicine Report ---
ACUTE GI BLOOD LOSS IMAGING HISTORY: GI bleeding COMPARISON: None. TECHNIQUE: After injection of autologous RBCs labeled in vitro with Tc-99m pertechnetate, sequential dynamic images of the abdomen were obtained for 60 minutes. These images were viewed in a cine displ ay. RADIOPHARMACEUTICAL: 18.3 mCi of [id number]-labeled RBCs FINDINGS: 1 hour dynamic imaging: Normal distribution of activity within the labeled blood pool with visualizat ion of the heart, liver, spleen, and genitourinary tract. Normal vessels are identified. No abnorma l focus of activity is identified. IMPRESSION: 1. No evidence of active GI bleeding over 1 hour. Sensitivity of this study is approximately 0.5-1 ml active GI bleeding/minute. Signer Name: Oliver Choudhury Jr, MD Signed: 09/01/2018 1:39 PM Workstation Name: [id number]
--- NOTE | 2018-09-01 13:59 | Progress Note ---
Assessment and Plan Assessment and plan: Upper GI bleed - EGD was done and showed blood in the proximal stomach of the lesser curvature, there is ulcer and active bleeding - GI is following the patient, Bleeding scan negative for active bleeding - Continue IV protonix Anemia - Hemoglobin dropped to 6.9 this morning and transfused with 2 units of blood - will check post transfusion H/H - Monitor H/H q8h - We'll transfuse as needed Dizziness - Likely due to the above - held BP medications DVT prophylaxis - SCDs Disposition - Continue inpatient care History Interval history: patient was seen and evaluated this morning, patient denied hematemesis this morning. Dizziness is getting better. Hospitalist Physical - Physical exam Narrative exam: Not in cardiopulmonary distress. The patient appeared well nourished and normally developed. Vital signs as documented. Head exam is unremarkable. No scleral icterus . Neck is without jugular venous distension, thyromegaly, or carotid bruits. Lungs are clear to auscultation. Cardiac exam reveals regular rate and Rhythm. First and second heart sounds normal. No murmurs, rubs or gallops. Abdominal exam reveals normal bowel sounds, no masses, no organomegaly and no aortic enlargement. Extremities are nonedematous and both femoral and pedal pulses are normal. INFORMATION OPERATOR: Alert and oriented 3. No focal weakness. - Constitutional Vitals: Temp Pulse Resp BP Pulse Ox 97 F L 48 L 19 128/60 85 09/01/18 13:34 09/01/18 13:49 09/01/18 13:49 09/01/18 13:49 09/01/18 13:49 Results - Labs CBC & Chem 7: 09/01/18 08:05 09/01/18 08:05 Labs: Laboratory Last Values WBC 6.7 K/mm3 (4.5-11.0) 09/01/18 08:05 RBC 2.01 M/mm3 (3.65-5.03) L 09/01/18 08:05 Hgb 6.7 gm/dl (11.8-15.2) L 09/01/18 08:05 Hct 19.9 % (35.5-45.6) L* 09/01/18 08:05 MCV 99 fl (84-94) H 09/01/18 08:05 MCH 33 pg (28-32) H 09/01/18 08:05 MCHC 34 % (32-34) 09/01/18 08:05 RDW 15.1 % (13.2-15.2) 09/01/18 08:05 Plt Count 125 K/mm3 (140-440) L 09/01/18 08:05 Lymph % (Auto) 26.1 % (13.4-35.0) 09/01/18 08:05 [place] % (Auto) 7.3 % (0.0-7.3) 09/01/18 08:05 Eos % (Auto) 2.0 % (0.0-4.3) 09/01/18 08:05 Baso % (Auto) 0.6 % (0.0-1.8) 09/01/18 08:05 Lymph # 1.8 K/mm3 (1.2-5.4) 09/01/18 08:05 [place] # 0.5 K/mm3 (0.0-0.8) 09/01/18 08:05 Eos # 0.1 K/mm3 (0.0-0.4) 09/01/18 08:05 Baso # 0.0 K/mm3 (0.0-0.1) 09/01/18 08:05 Seg Neutrophils % 64.0 % (40.0-70.0) 09/01/18 08:05 Seg Neutrophils # 4.3 K/mm3 (1.8-7.7) 09/01/18 08:05 PT 13.9 Sec. (12.2-14.9) 08/30/18 11:15 INR 1.10 (0.87-1.13) 08/30/18 11:15 APTT 25.4 Sec. (24.2-36.6) 08/30/18 11:15 VBG pH 7.390 (7.320-7.420) 08/30/18 11:15 Sodium 139 mmol/L (137-145) 09/01/18 08:05 Potassium 3.7 mmol/L (3.6-5.0) 09/01/18 08:05 Chloride 106.8 mmol/L (98-107) 09/01/18 08:05 Carbon Dioxide 23 mmol/L (22-30) 09/01/18 08:05 13 mmol/L 09/01/18 08:05 BUN 26 mg/dL (9-20) H 09/01/18 08:05 0.8 mg/dL (0.8-1.5) 09/01/18 08:05 Estimated GFR > 60 ml/min 09/01/18 08:05 33 % 09/01/18 08:05 Glucose 142 mg/dL (75-100) H 09/01/18 08:05 POC Glucose 147 (70-105) H 09/01/18 07:40 6.2 % (4-6) H 08/31/18 04:37 Calcium 8.3 mg/dL (8.4-10.2) L 09/01/18 08:05 0.70 mg/dL (0.1-1.2) 08/31/18 04:37 AST 20 units/L (5-40) 08/31/18 04:37 ALT 15 units/L (7-56) 08/31/18 04:37 42 units/L (35-129) 08/31/18 04:37 5.9 g/dL (6.3-8.2) L 08/31/18 04:37 3.1 g/dL (3.9-5) L 08/31/18 04:37 1.1 % 08/31/18 04:37 Yellow (Yellow) 08/30/18 Unknown Slightly-cloudy (Clear) 08/30/18 Unknown 5.0 (5.0-7.0) 08/30/18 Unknown Ur Specific [place] 1.019 (1.003-1.030) 08/30/18 Unknown 30 mg/dl mg/dL (Negative) 08/30/18 Unknown 50 mg/dL (Negative) 08/30/18 Unknown Neg mg/dL (Negative) 08/30/18 Unknown Neg (Negative) 08/30/18 Unknown Neg (Negative) 08/30/18 Unknown Neg (Negative) 08/30/18 Unknown < 2.0 mg/dL (<2.0) 08/30/18 Unknown Ur Leukocyte Esterase Neg (Negative) 08/30/18 Unknown 1.0 /HPF (0.0-6.0) 08/30/18 Unknown 2.0 /HPF (0.0-6.0) 08/30/18 Unknown U Epithel Cells (Auto) 1.0 /HPF (0-13.0) 08/30/18 Unknown Hyaline Casts 9 /LPF 08/30/18 Unknown Few /HPF 08/30/18 Unknown Blood Type O POSITIVE 08/30/18 11:15 Antibody Screen Negative 08/30/18 11:15 Crossmatch See Detail 08/30/18 11:15 Active Medications - Current Medications Current Medications: Generic Name Dose Route Start Last Admin Trade Name Freq PRN Reason Stop Dose Admin Acetaminophen 650 mg 08/30/18 22:31 Tylenol PO Q4H PRN Pain MILD(1-3)/Fever >100.5/SELLERS Clonidine HCl 0.2 mg 08/30/18 23:00 08/31/18 01:36 Catapres-Tts Patch TD 0.2 mg We CANDIE Administration Dextrose 50 ml 08/30/18 13:59 D50w (25gm) Syringe IV PRN PRN Hypoglycemia Hydromorphone HCl 0.5 mg 08/30/18 22:31 08/31/18 03:32 Dilaudid IV 0.5 mg Q3H PRN Administration Pain , Severe (7-10) Pantoprazole Sodium 80 mg/ 100 mls @ 10 mls/hr 08/30/18 14:00 09/01/18 10:50 Sodium Chloride IV 09/01/18 13:59 8 mg/hr DIRECT CANDIE 10 mls/hr Administration 8 MG/HR Sodium Chloride 1,000 mls @ 75 mls/hr 08/30/18 23:00 09/01/18 06:41 Nacl 0.9% 1000 Ml IV 75 mls/hr DIRECT CANDIE Administration Sodium Chloride 500 mls @ 0 mls/hr 09/01/18 09:00 09/01/18 13:12 Nacl 0.9% 500 Ml IV 09/01/18 18:00 50 mls/hr ONCE NR Administration As Directed Insulin Human Regular 0 units 08/30/18 16:30 09/01/18 12:30 Humulin R SUB-Q Not Given ACHS CANDIE Protocol Ondansetron HCl 4 mg 08/30/18 22:31 Zofran IV Q8H PRN Nausea And Vomiting Pantoprazole Sodium 40 mg 09/01/18 22:00 Protonix IV BID CANDIE Sodium Chloride 10 ml 08/31/18 10:00 09/01/18 10:49 Sodium Chloride Flush Syringe 10 Ml IV 10 ml BID CANDIE Administration Sodium Chloride 10 ml 08/30/18 22:31 Sodium Chloride Flush Syringe 10 Ml IV PRN PRN LINE FLUSH Nutrition/Malnutrition Assess - Dietary Evaluation Nutrition/Malnutrition Findings: Nutrition Notes Start: 08/31/18 16:05 Freq: Status: Active Protocol: Document 08/31/18 16:05 RM (Rec: 08/31/18 16:13 RM [id number]) Nutrition Notes Need for Assessment generated from: MST Initial or Follow up Assessment Current Diagnosis Coronary Artery Disease, Diabetes,Hypertension, Hyperlipidemia Other Pertinent Diagnosis Black emesis, Upper GI bleed, Depression Current Diet Clear liquid Labs/Tests Reviewed Pertinent Medications Reviewed Height 6 ft Weight 81.647 kg Usual Body Weight 80.91 kg [place] Body Weight (kg) 80.90 BMI 24.4 Subjective/Other Information Screened for malnutrition and new onset DM. NPO in place earlier today for upper endoscopy. Clear liquid diet ordered later today. Pt and pt relative in room at time of visit. Pt stated that CHUTE LOADER his appetite was poor d/t vomiting. Per pt relative CHUTE LOADER pt ate 1 meal daily X 1 month. Pt stated that UBW was 178 lbs 3-4 months ago. Pt not appropriate for diet education d/t well controlled DM w/A1c 6.2. Burn Absent Trauma Absent #1 Nutrition Diagnosis Inadequate oral intake Etiology vomiting As Evidenced by Signs and Symptoms pt on clear liquid diet Is patient on ventilator? No Is Patient Ambulatory and/or Out of Bed Yes REE-([facility]-ambulatory/OOB) [ 9.81 [id number]] Calculation Used for Recommendations [facility] Additional Notes Protein Needs: 82-98g (1-1.2g/ kg) Fluid Needs: 1 ml/kcal Nutrition Intervention Change Diet Order: Advance diet when medically able Add Supplement/Snack (indicate name/kcal Ensure Clear 1 daily /protein ) Provides kCal: 240 Provides Protein (gm) 8 Goal #1 Diet advancement Anticipated Discharge Needs: Unable to determine at this time Follow-Up By: 09/04/18 Additional Comments Follow for diet advancement, PO intakes, ONS intakes
[2018-09-01] MEDS: DILAUDID IV PRN ×2 (14:51→18:23)
[2018-09-02 00:56] LABS: Hematocrit 25.3 % (35.5-45.6); Hemoglobin 8.7 gm/dl (11.8-15.2)
[2018-09-02 00:57] LABS: Hematocrit 25.2 % (35.5-45.6); Hemoglobin 8.6 gm/dl (11.8-15.2)
[2018-09-02] MEDS: PROTONIX IV SCH ×2 (02:47→11:47)
[2018-09-02 05:45] LABS: Basophils % (Auto) 0.3 % (0.0-1.8); Eosinophils # (Auto) 0.2 K/mm3 (0.0-0.4); Eosinophils % (Auto) 2.9 % (0.0-4.3); Hematocrit 25.6 % (35.5-45.6); Hemoglobin 8.8 gm/dl (11.8-15.2); Lymphocytes # (Auto) 1.3 K/mm3 (1.2-5.4); Lymphocytes % (Auto) 20.8 % (13.4-35.0); Mean Corpuscular HGB Conc 34 % (32-34); Mean Corpuscular Volume 93 fl (84-94); Monocytes # (Auto) 0.4 K/mm3 (0.0-0.8); Monocytes % (Auto) 6.3 % (0.0-7.3); Platelet Count 113 K/mm3 (140-440); Red Blood Count 2.75 M/mm3 (3.65-5.03); Red Cell Distribution Width 18.1 % (13.2-15.2)
[2018-09-02 05:55] LABS: BUN/Creatinine Ratio 16; Blood Urea Nitrogen 14 mg/dL (9-20); Calcium 8.5 mg/dL (8.4-10.2); Hemolysis Index 5
[2018-09-02] MEDS ORDERED: K-DUR PO ONE (08:00)
[2018-09-02 08:36] VITALS: BP 133/59
--- NOTE | 2018-09-02 10:17 | Gastroenterology Progress Note ---
Assessment and Plan GI: pt stable overnight w/ complaints - h/h stable - diet as tolerated - ok to d/c from GI standpoint, will sign off, call if needed Subjective Date of service: 09/02/18 Principal diagnosis: GI bleed Interval history: - no signs bleeding overnight Objective - Constitutional Vitals: Temp Pulse Resp BP Pulse Ox 98.0 F 74 20 133/59 98 09/02/18 07:19 09/02/18 07:19 09/02/18 07:19 09/02/18 07:09/02/18 08:39 General appearance: no acute distress - EENT Eyes: PERRL - Respiratory Respiratory: bilateral: CTA - Cardiovascular Rhythm: regular Heart Sounds: Present: S1 & S2 - Gastrointestinal General gastrointestinal: Present: soft, non-tender, non-distended - Labs CBC & Chem 7: 09/02/18 04:50 09/02/18 04:50 Labs: Laboratory Results - last 24 hr 08/30/18 09/01/18 09/01/18 11:15 16:28 21:13 WBC RBC Hgb Hct MCV MCH MCHC RDW Plt Count Lymph % (Auto) Burnett % (Auto) Eos % (Auto) Baso % (Auto) Lymph # Burnett # Eos # Baso # Seg Neutrophils % Seg Neutrophils # Sodium Potassium Chloride Carbon Dioxide Anion Gap BUN Creatinine Estimated GFR BUN/Creatinine Ratio Glucose POC Glucose 180 H 176 H Calcium Blood Type O POSITIVE Antibody Screen Negative Crossmatch See Detail 09/02/18 09/02/18 09/02/18 00:34 00:34 04:50 WBC 6.3 RBC 2.75 L Hgb 8.7 L 8.6 L 8.8 L Hct 25.3 L 25.2 L 25.6 L MCV 93 MCH 32 MCHC 34 RDW 18.1 H Plt Count 113 L Lymph % (Auto) 20.8 Burnett % (Auto) 6.3 Eos % (Auto) 2.9 Baso % (Auto) 0.3 Lymph # 1.3 Burnett # 0.4 Eos # 0.2 Baso # 0.0 Seg Neutrophils % 69.7 Seg Neutrophils # 4.4 Sodium Potassium Chloride Carbon Dioxide Anion Gap BUN Creatinine Estimated GFR BUN/Creatinine Ratio Glucose POC Glucose Calcium Blood Type Antibody Screen Crossmatch 09/02/18 09/02/18 04:50 07:26 WBC RBC Hgb Hct MCV MCH MCHC RDW Plt Count Lymph % (Auto) Burnett % (Auto) Eos % (Auto) Baso % (Auto) Lymph # Burnett # Eos # Baso # Seg Neutrophils % Seg Neutrophils # Sodium 138 Potassium 3.5 L Chloride 106.3 Carbon Dioxide 22 Anion Gap 13 BUN 14 Creatinine 0.9 Estimated GFR > 60 BUN/Creatinine Ratio 16 Glucose 138 H POC Glucose 143 H Calcium 8.5 Blood Type Antibody Screen Crossmatch
--- NOTE | 2018-09-02 11:09 | Discharge Summary ---
Providers - Providers Date of Admission: 08/30/18 12:19 Attending physician: ABBEY DIGGS MD 08/30/18 22:31 Consult to Physician [CONS] Routine Comment: Consulting Provider: JUDITH MCCONNELL Physician Instructions: Reason For Exam: GI blood [facility] Reason for admission: Upper GI bleed, blood loss anemia Condition: Stable Pertinent studies: EGD Hospital course: The patient is a 78 year old male presenting with a chief complaint of dizzine ss. The patient states the past 2 days intermittent dizziness. Patient states he has fallen and lost consciousness several times. The patient states yesterday had an episode of nausea and vomiting black colored emesis. The patient states he started having black stools yesterday but a visit to taking aren't supplements. Patient states she is having left flank pain since last night and he believes he bruised his ribs during this fall. Patient gives his pain is score of 8/10. Patient was admitted to the floor and H/H dropped and patient was transfused with 2 units of blood and H/H holding, dizziness resolved, no further bleeding. GI was consulted and EGD was done and showed blood in the proximal stomach of the lesser curvature, there is ulcer and active bleeding. patient was treated w ith PPI and GI cleared the patient for discharge. Patient was hemodynamically stable at the time of discharge. Patient discharged with PPI. Disposition: TO HOME OR SELFCARE Time spent for discharge: 35 - Discharge Diagnoses (1) GI bleed Status: Acute Qualifiers: GI bleed type/associated pathology: gastric ulcer Qualified Code(s): K25.4 - Chronic or unspecified gastric ulcer with hemorrhage (2) S/P cardiac cath Status: Acute (3) Anemia Status: Acute Comment: acute blood loss anemia (4) Dizziness Status: Acute Core Measure Documentation - Palliative Care Palliative Care/ Comfort Measures: Not Applicable - Core Measures Any of the following diagnoses?: none Exam - Physical Exam Narrative exam: Not in cardiopulmonary distress. The patient appeared well nourished and normally developed. Vital signs as documented. Head exam is unremarkable. No scleral icterus . Neck is without jugular venous distension, thyromegaly, or carotid bruits. Lungs are clear to auscultation. Cardiac exam reveals regular rate and Rhythm. First and second heart sounds normal. No murmurs, rubs or gallops. Abdominal exam reveals normal bowel sounds, no masses, no organomegaly and no aortic enlargement. Extremities are nonedematous and both femoral and pedal pulses are normal. 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 No focal weakness. - Constitutional Vitals: Temp Pulse Resp BP Pulse Ox 98.0 F 74 20 133/59 98 09/02/18 07:19 09/02/18 07:19 09/02/18 07:19 09/02/18 07:09/02/18 08:39 Plan Activity: no restrictions Weight Bearing Status: Full Weight Bearing Diet: advance as tolerated Follow up with: NARCISO SEPULVEDA MD [Primary Care Provider] - 3-5 Days Prescriptions: Pantoprazole [Protonix TAB] 40 mg PO QDAY #30 tablet
[2018-09-02] MEDS: HumuLIN R SUB-Q SCH ×2 (11:45→13:03)
[2018-09-02] MEDS: SODIUM CHLORIDE FLUSH SYRINGE 10 ML IV SCH (11:48)
[2018-09-02 12:48] LABS: Hematocrit 26.8 % (35.5-45.6)
== END 2018-09-02 13:10 | disposition home or self-care (01) | DRG 377 ==
LOC: ED 09:34 → 2B-ACE 12:19
PROVIDERS: ADMIT Internal Medicine; ATTEND Internal Medicine
PROC: 0DC68ZZ Extirpation of Matter from Stomach, Via Natural or Artificial Opening Endoscopic (ICD-10-PCS; principal; 2018-08-30)
PROC: 0W3P8ZZ Control Bleeding in Gastrointestinal Tract, Via Natural or Artificial Opening Endoscopic (ICD-10-PCS; 2018-08-30)
PROC: 30233N1 Transfusion of Nonautologous Red Blood Cells into Peripheral Vein, Percutaneous Approach (ICD-10-PCS; 2018-09-01)
DX: K25.4 Chronic or unspecified gastric ulcer with hemorrhage (principal); N17.0 Acute kidney failure with tubular necrosis; D62 Acute posthemorrhagic anemia; I25.2 Old myocardial infarction; E11.9 Type 2 diabetes mellitus without complications; M19.90 Unspecified osteoarthritis, unspecified site; F17.210 Nicotine dependence, cigarettes, uncomplicated; E78.5 Hyperlipidemia, unspecified; I50.9 Heart failure, unspecified; F32.9 Major depressive disorder, single episode, unspecified; K44.9 Diaphragmatic hernia without obstruction or gangrene; Z95.810 Presence of automatic (implantable) cardiac defibrillator; Z79.4 Long term (current) use of insulin
CPT/HCPCS: 36415; 78278; 80048; 80053; 81001; 82271; 82805; 82962; 83036; 85014; 85018; 85025; 85610; 85730; 86850; 86900; 86901; 86920; 94760; 96361; 96374; 99406; G0378; A9560; C9113; J0171; J1170; J1815; J2370; J2704; J3010; J7030; J7040; P9016

== ENCOUNTER 2019-01-10 13:07 | Inpatient (IN) | payer MEDICARE, OTHER ==
[2019-01-10] MEDS ORDERED: IPRATROPIUM/ALBUTEROL SULFATE 3 ML AMPUL.NEB IH ONE (13:33)
[2019-01-10] MEDS ORDERED: methylPREDNISolone Sod Succinate 125 MG/2 ML INJ IV ONE (13:36)
--- NOTE | 2019-01-10 13:46 | Emergency Department Report ---
<EZRA MONTANEZ M - Last Filed: 01/10/19 14:31> ED Shortness of Breath HPI - General Chief Complaint: Dyspnea/Respdistress Stated Complaint: STEVE Time Seen by Provider: 01/10/19 13:36 - Related Data Home Medications Medication Instructions Recorded Confirmed Last Taken Gabapentin 300 mg PO TID 01/09/13 08/30/18 01/09/13 06:00 300 mg Insulin NPH/Regular [NovoLIN 70/30] 25 units SUB-Q DAILY 01/09/13 08/30/18 08/29/18 Sertraline [Zoloft] 100 mg PO QDAY 01/09/13 08/30/18 01/09/13 06:00 100 mg Simvastatin 40 mg PO QHS 01/09/13 08/30/18 01/09/13 06:00 40 mg carvediloL [Coreg] 25 mg PO BID 01/09/13 08/30/18 01/09/13 06:00 25 mg Doxazosin Mesylate [Cardura] 2 mg PO BID 08/30/18 08/30/18 Unknown Losartan [Cozaar] 100 mg PO QDAY 08/30/18 08/30/18 Unknown Naltrexone HCl 50 mg PO QDAY 08/30/18 08/30/18 Unknown Previous Rx's Medication Instructions Recorded Last Taken Type Pantoprazole [Protonix TAB] 40 mg PO QDAY #30 tablet 09/02/18 Unknown Rx Allergies Allergy/AdvReac Type Severity Reaction Status Date / Time No Known Allergies Allergy Verified 01/09/13 07:38 ED Past Medical Hx - Medications Home Medications: Home Medications Medication Instructions Recorded Confirmed Last Taken Type Gabapentin 300 mg PO TID 01/09/13 08/30/18 01/09/13 06:00 History 300 mg Insulin NPH/Regular [NovoLIN 70/30] 25 units SUB-Q DAILY 01/09/13 08/30/18 08/29/18 History Sertraline [Zoloft] 100 mg PO QDAY 01/09/13 08/30/18 01/09/13 06:00 History 100 mg Simvastatin 40 mg PO QHS 01/09/13 08/30/18 01/09/13 06:00 History 40 mg carvediloL [Coreg] 25 mg PO BID 11/26/13 07/17/19 11/26/13 06:00 History 25 mg Doxazosin Mesylate [Cardura] 2 mg PO BID 08/30/18 08/30/18 Unknown History Losartan [Cozaar] 100 mg PO QDAY 08/30/18 08/30/18 Unknown History Naltrexone HCl 50 mg PO QDAY 08/30/18 08/30/18 Unknown History Pantoprazole [Protonix TAB] 40 mg PO QDAY #30 tablet 09/02/18 Unknown Rx ED Medical Decision Making - Lab Data Result diagrams: 01/10/19 13:36 01/10/19 13:36 Laboratory Results - last 24 hr 01/10/19 01/10/19 13:36 13:48 WBC 9.5 RBC 3.88 Hgb 10.6 L Hct 32.3 L MCV 83 L MCH 27 L MCHC 33 RDW 21.1 H Plt Count 157 POC Glucose 157 H ED Disposition Clinical Impression: COPD with exacerbation Respiratory failure Qualifiers: Chronicity: acute Respiratory failure complication: unspecified whether with hypoxia or hypercapnia Qualified Code(s): J96.00 - Acute respiratory failure, unspecified whether with hypoxia or hypercapnia Congestive heart failure Qualifiers: Heart failure type: unspecified Heart failure chronicity: acute on chronic Qualified Code(s): I50.9 - Heart failure, unspecified Disposition: DC-09 OP ADMIT IP TO THIS HOSP Is pt being admited?: Yes Does the pt Need Aspirin: Yes Condition: Stable Time of Disposition: 14:32 <FAROOQ AUSTIN - Last Filed: 01/10/19 15:45> ED Shortness of Breath HPI - General Source: patient, EMS Mode of arrival: Stretcher Limitations: No Limitations - History of Present Illness Initial Comments: 79-year-old -Japanese male patient with history of diabetes, hypertension, ICD placement, and sleep apnea on CPAP presents today via EMS with complaints of shortness of breath starting last night. Denies any chest pain, leg pain/swelling, history of DVT/PE/FL/CVA, or recent long travel. 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 He admits to a mild cough, but denies any fever/chills/sweats, mucus production, or congestion. Patient follows with Dr. Denson, cardiology. -: Sudden Consistency: constant Improves With: oxygen Worsens With: exertion Known History Of: diabetes Associated Symptoms: cough ED Review of Systems ROS: Stated complaint: STEVE Other details as noted in HPI Constitutional: denies: chills, fever ENT: denies: throat pain Respiratory: cough, shortness of breath, SOB with exertion, SOB at rest Cardiovascular: denies: chest pain, palpitations, edema, syncope Gastrointestinal: denies: abdominal pain, nausea, vomiting Genitourinary: denies: dysuria, frequency Musculoskeletal: denies: back pain Skin: denies: rash, lesions Neurological: denies: headache, weakness, paresthesias Psychiatric: denies: anxiety, depression Hematological/Lymphatic: denies: easy bleeding ED Past Medical Hx - Past Medical History Previous Medical History?: Yes Hx Hypertension: Yes (high cholesterol) Hx CVA: No Hx Heart Attack/AMI: Yes (2003) Hx Congestive Heart Failure: No Hx Diabetes: Yes Hx Pulmonary Embolism: No Hx GERD: No Hx Liver Disease: No Hx Renal Disease: No Hx Sickle Cell Disease: No Hx Arthritis: Yes Hx Headaches / Migraines: No Hx Seizures: No Hx Kidney Stones: No Hx Psychiatric Treatment: No Hx Asthma: No Hx COPD: Yes Hx Tuberculosis: No Hx Dementia: Yes Hx HIV: No - Surgical History Past Surgical History?: Yes Hx Coronary Stent: Yes Hx Internal Defibrillator: Yes - Social History Smoking Status: Former Smoker Substance Use Type: None ED Physical Exam - General Limitations: No Limitations General appearance: alert - Head Head exam: Present: atraumatic, normocephalic - Eye Eye exam: Present: normal appearance. Absent: scleral icterus - ENT ENT exam: Present: normal exam - Neck Neck exam: Present: normal inspection, full ROM. Absent: lymphadenopathy - Respiratory Respiratory exam: Present: wheezes, rales (left lower lung lobe), other (tachypnea noted ). Absent: rhonchi - Cardiovascular Cardiovascular Exam: Present: regular rate, normal rhythm, normal heart sounds - GI/Abdominal GI/Abdominal exam: Present: soft. Absent: distended, tenderness, guarding, rebound, rigid - Extremities Exam Extremities exam: Present: normal inspection. Absent: pedal edema, joint swelling, calf tenderness - Back Exam Back exam: Present: full ROM - Neurological Exam Neurological exam: Present: alert, oriented X3 - Psychiatric Psychiatric exam: Present: normal affect, normal mood - Skin Skin exam: Present: warm, dry, intact, normal color. Absent: rash, cyanosis, diaphoretic ED Course Vital Signs 01/10/19 01/10/19 01/10/19 13:13 13:22 13:30 Temperature 98.5 F Pulse Rate 97 H 98 H 96 H Pulse Rate [ Anterior Bilateral Throughout] Respiratory 24 33 H 25 H Rate Respiratory Rate [Anterior Bilateral Throughout] Blood Pressure 165/89 165/89 162/89 Blood Pressure 165/89 [Left] O2 Sat by Pulse 100 100 100 Oximetry 01/10/19 01/10/19 01/10/19 13:45 14:01 14:15 Temperature Pulse Rate 94 H 106 H Pulse Rate [ Anterior Bilateral Throughout] Respiratory 28 H 15 26 H Rate Respiratory Rate [Anterior Bilateral Throughout] Blood Pressure 152/87 144/87 157/94 Blood Pressure [Left] O2 Sat by Pulse 99 99 100 Oximetry 01/10/19 01/10/19 01/10/19 14:24 14:30 14:45 Temperature Pulse Rate Pulse Rate [ 96 H Anterior Bilateral Throughout] Respiratory 37 H 27 H Rate Respiratory 28 H Rate [Anterior Bilateral Throughout] Blood Pressure 152/98 150/84 Blood Pressure [Left] O2 Sat by Pulse 99 99 Oximetry 01/10/19 01/10/19 01/10/19 15:00 15:15 15:30 Temperature Pulse Rate Pulse Rate [ Anterior Bilateral Throughout] Respiratory 25 H 28 H 10 L Rate Respiratory Rate [Anterior Bilateral Throughout] Blood Pressure 155/90 156/90 147/86 Blood Pressure [Left] O2 Sat by Pulse 92 99 95 Oximetry ED Medical Decision Making - Lab Data Result diagrams: 01/10/19 13:36 01/10/19 13:36 - Medical Decision Making 79-year-old -Japanese male patient here today with shortness of breath. He has history of diabetes, hypertension, sleep apnea on CPAP, ICD placement. Patient initially 92% on room air, placed on CPAP by EMS, and then placed on BiPAP upon arrival to the ED. Patient currently satting at 100%. Chest x-ray shows bilateral lower lung airspace opacities. BNP elevated at >3400. Troponin is negative. Blood cultures and lactic acid sent. WBCs are normal. Patient likely has new onset heart failure, however pneumonia cannot be ruled out. Levaquin and Lasix orders placed. Blood pressure stable. Patient to be admitted to the hospital via Dr. Larson. Pt follows with Dr. Denson, cardiology. Critical care attestation.: If time is entered above; I have spent that time in minutes in the direct care of this critically ill patient, excluding procedure time.
[2019-01-10 13:52] LABS: Hematocrit 32.3 % (35.5-45.6); Hemoglobin 10.6 gm/dl (11.8-15.2); Mean Corpuscular HGB Conc 33 % (32-34); Mean Corpuscular Volume 83 fl (84-94); Platelet Count 157 K/mm3 (140-440); Red Blood Count 3.88 M/mm3 (3.65-5.03); Red Cell Distribution Width 21.1 % (13.2-15.2)
--- NOTE | 2019-01-10 13:59 | XRay Report ---
CHEST 1 VIEW INDICATION / CLINICAL INFORMATION: Dyspnea. COMPARISON: 08/30/2018 FINDINGS: SUPPORT DEVICES: AICD appears unchanged HEART / MEDIASTINUM: Unchanged LUNGS / PLEURA: There are mild patchy airspace opacities in the lung bases which could represent isidro a, atelectasis or less likely pneumonia. No pneumothorax. ADDITIONAL FINDINGS: No significant additional findings. IMPRESSION: 1. There are mild patchy airspace opacities in the lung bases. Signer Name: Naga Wilkes MD Signed: 01/10/2019 1:54 PM Workstation Name: [id number]
[2019-01-10] MEDS ORDERED: SODIUM CHLORIDE 0.9% 1000 ML IV SOLN IV ONE (14:08)
[2019-01-10 14:10] LABS: Alanine Aminotransferase 10 units/L (7-56); Albumin 3.8 g/dL (3.9-5); BUN/Creatinine Ratio 11; Blood Urea Nitrogen 11 mg/dL (9-20); Hemolysis Index 0
[2019-01-10] MEDS ORDERED: NITROGLYCERIN 2% OINT 1 GM TP ONE ×2 (14:30→15:41)
[2019-01-10] MEDS ORDERED: FUROSEMIDE 40 MG/4 ML INJ IV ONE (14:30)
[2019-01-10] MEDS ORDERED: ASPIRIN 325 MG TAB PO ONE (14:33)
[2019-01-10] MEDS ORDERED: FUROSEMIDE 40 MG/4 ML INJ ONE (15:40)
[2019-01-10] MEDS ORDERED: ASPIRIN 325 MG TAB ONE (15:43)
[2019-01-10 18:20] LABS: Bilirubin,Urine NEG (Negative); Blood,Urine NEG (Negative); Color,Urine Straw (Yellow); Mucus,Urine FEW /HPF; Protein,Urine <15 mg/dL mg/dL (Negative); Urobilinogen,Urine < 2.0 mg/dL (<2.0)
[2019-01-10 18:21] LABS: WBC,Urine < 1.0 /HPF (0.0-6.0)
[2019-01-10] MEDS ORDERED: ONDANSETRON 4 MG/2 ML INJ IV PRN (21:33)
[2019-01-10] MEDS ORDERED: ACETAMINOPHEN 325 MG TAB PO PRN (21:33)
[2019-01-10] MEDS ORDERED: ZOLPIDEM 5 MG TAB PO PRN (21:33)
[2019-01-10] MEDS ORDERED: HYDROmorphone 1 MG/1 ML INJ IV PRN (21:33)
[2019-01-10] MEDS ORDERED: IPRATROPIUM/ALBUTEROL SULFATE 3 ML AMPUL.NEB IH PRN (21:41)
[2019-01-10] MEDS ORDERED: NON-FORMULARY EACH (Losartan [Cozaar] 100 MG) PO SCH (21:45)
--- NOTE | 2019-01-10 21:50 | History and Physical Report ---
History of Present Illness Date of examination: 01/10/19 Date of admission: 01/10/19 14:07 Chief complaint: SOB since yesterday and wheezing since yesterday. History of present illness: 79-year-old male with multiple medical problems including insulin-dependent diabetes arthritis, hypertension: Coronary artery disease and history of internal defibrillator comes in for increasing shortness of breath since yesterday. Patient has been wheezing and cough productive of mucoid sputum. Patient has been VAPING since last year instead of cigarettes. No fever or chills. No chest pain. No exacerbating or relieving factors. Patient follows in [facility] for his coronary artery disease and internal defibrillator. Improves with oxygen Past Medical History Previous Medical History?: Yes Hypertension: Yes (high cholesterol) Heart Attack/AMI: Yes (2003) Diabetes Arthritis Stent placement 1 Surgical History Past Surgical History?: Yes Hx Coronary Stent: Yes Hx Internal Defibrillator: Yes Social History Smoking Status: Former Smoker Family history Htn Review of Systems ROS: Stated complaint: STEVE Other details as noted in HPI Constitutional: denies: chills, fever ENT: denies: throat pain Respiratory: cough, shortness of breath, SOB with exertion, SOB at rest Cardiovascular: denies: chest pain, palpitations, edema, syncope Gastrointestinal: denies: abdominal pain, nausea, vomiting Genitourinary: denies: dysuria, frequency Musculoskeletal: denies: back pain Skin: denies: rash, lesions Neurological: denies: headache, weakness, paresthesias Psychiatric: denies: anxiety, depression Hematological/Lymphatic: denies: easy bleeding Medications and Allergies Allergies Allergy/AdvReac Type Severity Reaction Status Date / Time No Known Allergies Allergy Verified 01/09/13 07:38 Home Medications Medication Instructions Recorded Confirmed Last Taken Type Gabapentin 300 mg PO TID 01/09/13 08/30/18 01/09/13 06:00 History 300 mg Insulin NPH/Regular [NovoLIN 70/30] 25 units SUB-Q DAILY 01/09/13 08/30/18 08/29/18 History Sertraline [Zoloft] 100 mg PO QDAY 01/09/13 08/30/18 01/09/13 06:00 History 100 mg Simvastatin 40 mg PO QHS 01/09/13 08/30/18 01/09/13 06:00 History 40 mg carvediloL [Coreg] 25 mg PO BID 01/09/13 08/30/18 01/09/13 06:00 History 25 mg Doxazosin Mesylate [Cardura] 2 mg PO BID 08/30/18 08/30/18 Unknown History Losartan [Cozaar] 100 mg PO QDAY 08/30/18 08/30/18 Unknown History Naltrexone HCl 50 mg PO QDAY 08/30/18 08/30/18 Unknown History Pantoprazole [Protonix TAB] 40 mg PO QDAY #30 tablet 09/02/18 Unknown Rx Active Meds: Active Medications Acetaminophen (Tylenol) 650 mg PO Q4H PRN PRN Reason: Pain MILD(1-3)/Fever >100.5/SELLERS Albuterol/Ipratropium (Duoneb *Not For Prn Use*) 1 ampul IH Q3H PRN PRN Reason: Wheezing Albuterol/Ipratropium (Duoneb *Not For Prn Use*) 1 ampul IH QIDRT [facility] Carvedilol (Coreg) 25 mg PO BID [facility] Enoxaparin Sodium (Enoxaparin) 40 mg SUB-Q QDAY@2200 [facility] Famotidine (Pepcid) 20 mg IV BID [facility] Gabapentin (Gabapentin) 300 mg PO TID [facility] Hydromorphone HCl (Dilaudid) 0.5 mg IV Q3H PRN PRN Reason: Pain , Severe (7-10) Levofloxacin/Dextrose (Levaquin 750mg/150ml) 750 mg in 150 mls @ 100 mls/hr IV Q24HR [facility]; Protocol Levofloxacin/Dextrose (Levaquin 750mg/150ml) 750 mg in 150 mls @ 100 mls/hr IV Q24HR [facility]; Protocol Insulin Human Isoph/Insulin Regular (Humulin 70/30) 20 unit SUB-Q BID [facility] Insulin Human Lispro (Humalog) 0 unit SUB-Q ACHS [facility]; Protocol Methylprednisolone Sodium Succinate (Solu-Medrol) 80 mg IV Q8HR COUNT INCLUDES THE [facility] Miscellaneous Medication (Doxazosin Mesylate [Cardura]) 2 mg PO BID COUNT INCLUDES THE [facility] Miscellaneous Medication (Losartan [Cozaar]) 100 mg PO QDAY COUNT INCLUDES THE [facility] Miscellaneous Medication (Simvastatin [Simvastatin]) 40 mg PO QHS COUNT INCLUDES THE [facility] Ondansetron HCl (Zofran) 4 mg IV Q8H PRN PRN Reason: Nausea And Vomiting Pantoprazole Sodium (Protonix) 40 mg PO QDAY [facility] Sertraline HCl (Zoloft) 100 mg PO QDAY [facility] Sodium Chloride (Sodium Chloride Flush Syringe 10 Ml) 10 ml IV BID [facility] Sodium Chloride (Sodium Chloride Flush Syringe 10 Ml) 10 ml IV PRN PRN PRN Reason: LINE FLUSH Zolpidem Tartrate (Ambien) 5 mg PO QHS PRN PRN Reason: Insomnia Exam - Constitutional Vitals: Temp Pulse Resp BP Pulse Ox 97.5 F L 92 H 20 150/83 100 01/10/19 20:59 01/10/19 20:57 01/10/19 20:57 01/10/19 20:57 01/10/19 20:57 General appearance: Present: severe distress, well-nourished - EENT Eyes: Present: PERRL ENT: hearing intact, clear oral mucosa - Neck Neck: Present: supple, normal ROM - Respiratory Respiratory effort: normal Respiratory: bilateral: CTA, diminished, rhonchi, wheezing - Cardiovascular Heart rate: 78 Rhythm: regular Heart Sounds: Present: S1 & S2. Absent: rub, click - Extremities Extremities: no ischemia, pulses intact, pulses symmetrical, No edema Peripheral Pulses: within normal limits - Abdominal General gastrointestinal: Present: soft, non-tender, non-distended, normal bowel sounds Male genitourinary: Present: normal - Rectal Rectal Exam: deferred - Integumentary Integumentary: Present: clear, warm, dry - Musculoskeletal Musculoskeletal: gait normal, strength equal bilaterally - Psychiatric Psychiatric: appropriate mood/affect, intact judgment & insight - Neurologic Neurologic: CNII-XII intact, moves all extremities - Allied Health Allied health notes reviewed: nursing, case management Results - Labs CBC & Chem 7: 01/10/19 13:36 01/10/19 13:36 Labs: Laboratory Last Values WBC 9.5 K/mm3 (4.5-11.0) 01/10/19 13:36 RBC 3.88 M/mm3 (3.65-5.03) 01/10/19 13:36 Hgb 10.6 gm/dl (11.8-15.2) L 01/10/19 13:36 Hct 32.3 % (35.5-45.6) L 01/10/19 13:36 MCV 83 fl (84-94) L 01/10/19 13:36 MCH 27 pg (28-32) L 01/10/19 13:36 MCHC 33 % (32-34) 01/10/19 13:36 RDW 21.1 % (13.2-15.2) H 01/10/19 13:36 Plt Count 157 K/mm3 (140-440) 01/10/19 13:36 POC ABG pH 7.431 (7.35-7.45) 01/10/19 14:45 POC ABG pCO2 33.7 (35-45) L 01/10/19 14:45 POC ABG pO2 76 (80-105) L 01/10/19 14:45 POC ABG HCO3 22.4 (22-26 mml/L) 01/10/19 14:45 POC ABG Total CO2 23 (23-27mmol/L) 01/10/19 14:45 POC ABG O2 Sat 96 01/10/19 14:45 POC ABG Base Excess -2 ((-2) - (+3)mmol/L) 01/10/19 14:45 FiO2 35 % 01/10/19 14:45 Sodium 138 mmol/L (137-145) 01/10/19 13:36 Potassium 3.7 mmol/L (3.6-5.0) 01/10/19 13:36 Chloride 102.7 mmol/L (98-107) 01/10/19 13:36 Carbon Dioxide 24 mmol/L (22-30) 01/10/19 13:36 Anion Gap 15 mmol/L 01/10/19 13:36 BUN 11 mg/dL (9-20) 01/10/19 13:36 Creatinine 1.0 mg/dL (0.8-1.5) 01/10/19 13:36 Estimated GFR > 60 ml/min 01/10/19 13:36 BUN/Creatinine Ratio 11 % 01/10/19 13:36 Glucose 149 mg/dL (75-100) H 01/10/19 13:36 POC Glucose 157 (70-105) H 01/10/19 13:48 Lactic Acid 0.80 mmol/L (0.7-2.0) 01/10/19 17:01 Calcium 9.0 mg/dL (8.4-10.2) 01/10/19 13:36 Total Bilirubin 1.10 mg/dL (0.1-1.2) 01/10/19 13:36 AST 20 units/L (5-40) 01/10/19 13:36 ALT 10 units/L (7-56) 01/10/19 13:36 Alkaline Phosphatase 69 units/L (35-129) 01/10/19 13:36 Troponin T < 0.010 ng/mL (0.00-0.029) 01/10/19 13:36 NT-Pro-B Natriuret Pep 3867 pg/mL (0-900) H 01/10/19 13:36 Total Protein 7.5 g/dL (6.3-8.2) 01/10/19 13:36 Albumin 3.8 g/dL (3.9-5) L 01/10/19 13:36 Albumin/Globulin Ratio 1.0 % 01/10/19 13:36 Urine Color Straw (Yellow) 01/10/19 Unknown Urine Turbidity Clear (Clear) 01/10/19 Unknown Urine pH 5.0 (5.0-7.0) 01/10/19 Unknown Ur Specific [place] 1.005 (1.003-1.030) 01/10/19 Unknown Urine Protein <15 mg/dl mg/dL (Negative) 01/10/19 Unknown Urine Glucose (UA) Neg mg/dL (Negative) 01/10/19 Unknown Urine Ketones Neg mg/dL (Negative) 01/10/19 Unknown Urine Blood Neg (Negative) 01/10/19 Unknown Urine Nitrite Neg (Negative) 01/10/19 Unknown Urine Bilirubin Neg (Negative) 01/10/19 Unknown Urine Urobilinogen < 2.0 mg/dL (<2.0) 01/10/19 Unknown Ur Leukocyte Esterase Neg (Negative) 01/10/19 Unknown Urine WBC (Auto) < 1.0 /HPF (0.0-6.0) 01/10/19 Unknown Urine RBC (Auto) 1.0 /HPF (0.0-6.0) 01/10/19 Unknown Urine Mucus Few /HPF 01/10/19 Unknown Short CBC 01/10/19 Range/Units 13:36 WBC 9.5 (4.5-11.0) K/mm3 Hgb 10.6 L (11.8-15.2) gm/dl Hct 32.3 L (35.5-45.6) % Plt Count 157 (140-440) K/mm3 BMP 01/10/19 13:36 Sodium 138 Potassium 3.7 Chloride 102.7 Carbon Dioxide 24 BUN 11 Creatinine 1.0 Glucose 149 H Calcium 9.0 Cardiac Enzymes 01/10/19 Range/Units 13:36 Troponin T < 0.010 (0.00-0.029) ng/mL Liver Function 01/10/19 Range/Units 13:36 Total Bilirubin 1.10 (0.1-1.2) mg/dL AST 20 (5-40) units/L ALT 10 (7-56) units/L Alkaline Phosphatase 69 (35-129) units/L Albumin 3.8 L (3.9-5) g/dL Urine 01/10/19 Range/Units Unknown Urine Color Straw (Yellow) Urine pH 5.0 (5.0-7.0) Ur Specific [place] 1.005 (1.003-1.030) Urine Protein <15 mg/dl (Negative) mg/dL Urine Glucose (UA) Neg (Negative) mg/dL - Imaging and Cardiology EKG: report reviewed (Sinus Rhythm APc.LAE,LBBB) Chest x-ray: report reviewed Imaging and Cardiology: CXR IMPRESSION: 1. There are mild patchy airspace opacities in the lung bases. Assessment and Plan Advance Directives: Yes (Full code) VTE prophylaxis?: Chemical Plan of care discussed with patient/family: Yes - Patient Problems (1) Acute respiratory failure with hypoxia Current Visit: Yes Status: Acute Plan to address problem: COnt IV Levaquin IV Solumedrol and Duonebs rtc and prn Bipap for now Intubation if necessary (2) COPD with exacerbation Current Visit: Yes Status: Acute Plan to address problem: COnt IV Levaquin IV Solumedrol and Duonebs rtc and prn Bipap for now Intubation if necessary (3) Anemia Current Visit: No Status: Acute Plan to address problem: Anemia work up (4) IDDM (insulin dependent diabetes mellitus) Current Visit: Yes Status: Chronic Plan to address problem: Cnt home insulin and coverage Check A1c (5) HTN (hypertension) Current Visit: Yes Status: Chronic Qualifiers: Hypertension type: essential hypertension Qualified Code(s): I10 - Essential (primary) hypertension Plan to address problem: Cont antihypertensives (6) HLD (hyperlipidemia) Current Visit: Yes Status: Chronic Qualifiers: Hyperlipidemia type: mixed hyperlipidemia Qualified Code(s): E78.2 - Mixed hyperlipidemia Plan to address problem: Cont statins (7) GERD (gastroesophageal reflux disease) Current Visit: Yes Status: Chronic Qualifiers: Esophagitis presence: without esophagitis Qualified Code(s): K21.9 - Gastro-esophageal reflux disease without esophagitis Plan to address problem: Cont protonix (8) Depression Current Visit: Yes Status: Chronic Qualifiers: Depression Type: unspecified Qualified Code(s): F32.9 - Major depressive disorder, single episode, unspecified Plan to address problem: cont Sertraline (9) DVT prophylaxis Current Visit: Yes Status: Acute Plan to address problem: On Lovenox and GI prophylaxis
[2019-01-10] MEDS ORDERED: ALBUTEROL 2.5 MG/3 ML NEBU IH PRN (21:55)
[2019-01-10] MEDS ORDERED: FAMOTIDINE 20 MG/2 ML INJ IV SCH (22:00)
[2019-01-10] MEDS ORDERED: NON-FORMULARY EACH (Simvastatin [Simvastatin] 40 MG) PO SCH (22:00)
[2019-01-10] MEDS ORDERED: DOXAZOSIN MESYLATE 2 MG PO SCH (22:00)
[2019-01-10] MEDS: LOSARTAN 50 MG TAB PO SCH (22:05)
[2019-01-10] MEDS: DOXAZOSIN 1 MG TAB PO SCH (22:06)
[2019-01-10] MEDS: SERTRALINE 100 MG TAB PO SCH (22:06)
[2019-01-10] MEDS: PRAVASTATIN 80 MG TAB PO SCH (22:06)
[2019-01-10] MEDS: carvediloL 25 MG TAB PO SCH (22:07)
[2019-01-10] MEDS: methylPREDNISolone Sod Succinate 125 MG/2 ML INJ IV SCH (22:07)
[2019-01-10] MEDS: ENOXAPARIN 40 MG/0.4 ML INJ SUB-Q SCH (22:08)
[2019-01-10] MEDS: INSULIN NPH/REGULAR 70/30 INJ SUB-Q SCH (23:21)
[2019-01-10] MEDS: INSULIN LISPRO 100 UNIT/ML SUB-Q SCH (23:21)
[2019-01-11 04:41] LABS: Basophils % (Auto) 0.2 % (0.0-1.8); Hematocrit 31.5 % (35.5-45.6); Hemoglobin 10.4 gm/dl (11.8-15.2); Lymphocytes # (Auto) 0.7 K/mm3 (1.2-5.4); Lymphocytes % (Auto) 12.8 % (13.4-35.0); Mean Corpuscular HGB Conc 33 % (32-34); Mean Corpuscular Volume 85 fl (84-94); Monocytes # (Auto) 0.2 K/mm3 (0.0-0.8); Monocytes % (Auto) 4.1 % (0.0-7.3); Red Blood Count 3.71 M/mm3 (3.65-5.03)
[2019-01-11 04:43] LABS: Red Cell Distribution Width 21.4 % (13.2-15.2)
[2019-01-11 05:26] LABS: Alanine Aminotransferase 10 units/L (7-56); Albumin 3.6 g/dL (3.9-5); BUN/Creatinine Ratio 20; Blood Urea Nitrogen 20 mg/dL (9-20); Calcium 9.2 mg/dL (8.4-10.2); Hemolysis Index 5
[2019-01-11] MEDS: methylPREDNISolone Sod Succinate 125 MG/2 ML INJ IV SCH ×3 (05:27→21:03)
[2019-01-11 05:29] LABS: Platelet Count 142 K/mm3 (140-440)
[2019-01-11 05:30] LABS: % Iron Saturation 12.72 %
[2019-01-11] MEDS: IPRATROPIUM/ALBUTEROL SULFATE 3 ML AMPUL.NEB IH SCH ×4 (07:39→20:45)
[2019-01-11] MEDS: INSULIN NPH/REGULAR 70/30 INJ SUB-Q SCH ×2 (08:37→17:07)
[2019-01-11] MEDS: GABAPENTIN 300 MG CAP PO SCH ×3 (08:37→21:00)
[2019-01-11] MEDS: INSULIN LISPRO 100 UNIT/ML SUB-Q SCH ×4 (08:37→21:21)
--- NOTE | 2019-01-11 09:50 | Consultation ---
History of Present Illness Consult date: 01/11/19 Requesting physician: SHARI BARLOW Reason for consult: COPD, other (Acute hypoxemic Respiratory Failure) History of present illness: PULMONARY/CCM CONSULT NOTE (full dictation # [id number]) Please see dictated notes for full details Medications and Allergies Allergies Allergy/AdvReac Type Severity Reaction Status Date / Time No Known Allergies Allergy Verified 01/09/13 07:38 Home Medications Medication Instructions Recorded Confirmed Last Taken Type Gabapentin 300 mg PO TID 01/09/13 08/30/18 01/09/13 06:00 History 300 mg Insulin NPH/Regular [NovoLIN 70/30] 25 units SUB-Q DAILY 01/09/13 08/30/18 08/29/18 History Sertraline [Zoloft] 100 mg PO QDAY 01/09/13 08/30/18 01/09/13 06:00 History 100 mg Simvastatin 40 mg PO QHS 01/09/13 08/30/18 01/09/13 06:00 History 40 mg carvediloL [Coreg] 25 mg PO BID 01/09/13 08/30/18 01/09/13 06:00 History 25 mg Doxazosin Mesylate [Cardura] 2 mg PO BID 08/30/18 08/30/18 Unknown History Losartan [Cozaar] 100 mg PO QDAY 08/30/18 08/30/18 Unknown History Naltrexone HCl 50 mg PO QDAY 08/30/18 08/30/18 Unknown History Pantoprazole [Protonix TAB] 40 mg PO QDAY #30 tablet 09/02/18 Unknown Rx Active Meds: Active Medications Acetaminophen (Tylenol) 650 mg PO Q4H PRN PRN Reason: Pain MILD(1-3)/Fever >100.5/SELLERS Albuterol (Proventil) 2.5 mg IH Q3HRT PRN PRN Reason: Wheezing Albuterol/Ipratropium (Duoneb *Not For Prn Use*) 1 ampul IH QIDRT [facility] Last Admin: 01/11/19 07:39 Dose: 1 ampul Documented by: Carvedilol (Coreg) 25 mg PO BID [facility] Last Admin: 01/10/19 22:07 Dose: 25 mg Documented by: Doxazosin Mesylate (Cardura) 2 mg PO BID [facility] Last Admin: 01/10/19 22:06 Dose: 2 mg Documented by: Enoxaparin Sodium (Enoxaparin) 40 mg SUB-Q QDAY@2200 [facility] Last Admin: 01/10/19 22:08 Dose: 40 mg Documented by: Gabapentin (Gabapentin) 300 mg PO TID [facility] Last Admin: 01/11/19 08:37 Dose: 300 mg Documented by: Hydromorphone HCl (Dilaudid) 0.5 mg IV Q3H PRN PRN Reason: Pain , Severe (7-10) Levofloxacin/Dextrose (Levaquin 750mg/150ml) 750 mg in 150 mls @ 100 mls/hr IV Q24HR@2200 [facility]; Protocol Last Admin: 01/10/19 22:04 Dose: 100 mls/hr Documented by: Insulin Human Isoph/Insulin Regular (Humulin 70/30) 20 unit SUB-Q BIDDIAB [facility] Last Admin: 01/11/19 08:37 Dose: 20 unit Documented by: Insulin Human Lispro (Humalog) 0 unit SUB-Q ACHS [facility]; Protocol Last Admin: 01/11/19 08:37 Dose: 3 unit Documented by: Losartan Potassium (Cozaar) 100 mg PO QDAY [facility] Last Admin: 01/10/19 22:05 Dose: 100 mg Documented by: Methylprednisolone Sodium Succinate (Solu-Medrol) 80 mg IV Q8HR [facility] Last Admin: 01/11/19 05:27 Dose: 80 mg Documented by: Ondansetron HCl (Zofran) 4 mg IV Q8H PRN PRN Reason: Nausea And Vomiting Pantoprazole Sodium (Protonix) 40 mg PO QDAY [facility] Pravastatin Sodium (Pravachol) 80 mg PO QHS [facility] Last Admin: 01/10/19 22:06 Dose: 80 mg Documented by: Sertraline HCl (Zoloft) 100 mg PO QDAY [facility] Last Admin: 01/10/19 22:06 Dose: 100 mg Documented by: Sodium Chloride (Sodium Chloride Flush Syringe 10 Ml) 10 ml IV BID [facility] Last Admin: 01/10/19 22:08 Dose: 10 ml Documented by: Sodium Chloride (Sodium Chloride Flush Syringe 10 Ml) 10 ml IV PRN PRN PRN Reason: LINE FLUSH Last Admin: 01/11/19 05:28 Dose: 10 ml Documented by: Zolpidem Tartrate (Ambien) 5 mg PO QHS PRN PRN Reason: Insomnia Last Admin: 01/10/19 22:07 Dose: 5 mg Documented by: Physical Examination Vital signs: Vital Signs Temp Pulse Resp BP Pulse Ox 98.5 F 102 H 24 165/89 97 01/10/19 13:13 01/10/19 13:13 01/10/19 13:13 01/10/19 13:13 01/10/19 13:13 Results - Laboratory Findings CBC and BMP: 01/11/19 03:41 01/11/19 03:41 ABG POC ABG pH 7.431 (7.35-7.45) 01/10/19 14:45 POC ABG pCO2 33.7 (35-45) L 01/10/19 14:45 POC ABG pO2 76 (80-105) L 01/10/19 14:45 POC ABG HCO3 22.4 (22-26 mml/L) 01/10/19 14:45 POC ABG Total CO2 23 (23-27mmol/L) 01/10/19 14:45 POC ABG O2 Sat 96 01/10/19 14:45 Abnormal lab findings: Abnormal Labs 01/10/19 01/10/19 01/10/19 13:36 13:36 13:48 Hgb 10.6 L Hct 32.3 L MCV 83 L MCH 27 L RDW 21.1 H Lymph % (Auto) Lymph # Seg Neutrophils % POC ABG pCO2 POC ABG pO2 Carbon Dioxide Glucose 149 H POC Glucose 157 H Hemoglobin A1c Iron NT-Pro-B Natriuret Pep 3867 H Albumin 3.8 L Vitamin B12 01/10/19 01/10/19 01/11/19 14:45 21:57 00:35 Hgb Hct MCV MCH RDW Lymph % (Auto) Lymph # Seg Neutrophils % POC ABG pCO2 33.7 L POC ABG pO2 76 L Carbon Dioxide Glucose POC Glucose 291 H Hemoglobin A1c Iron 44 L NT-Pro-B Natriuret Pep Albumin Vitamin B12 01/11/19 01/11/19 01/11/19 00:35 03:41 03:41 Hgb 10.4 L Hct 31.5 L MCV MCH RDW 21.4 H Lymph % (Auto) 12.8 L Lymph # 0.7 L Seg Neutrophils % 82.9 H POC ABG pCO2 POC ABG pO2 Carbon Dioxide 18 L Glucose 232 H POC Glucose Hemoglobin A1c Iron NT-Pro-B Natriuret Pep Albumin 3.6 L Vitamin B12 1870 H 01/11/19 01/11/19 03:41 07:52 Hgb Hct MCV MCH RDW Lymph % (Auto) Lymph # Seg Neutrophils % POC ABG pCO2 POC ABG pO2 Carbon Dioxide Glucose POC Glucose 234 H Hemoglobin A1c 6.4 H Iron NT-Pro-B Natriuret Pep Albumin Vitamin B12
--- NOTE | 2019-01-11 10:30 | Progress Note ---
Assessment and Plan Assessment and plan: -- Acute respiratory failure with hypoxia Current Visit: Yes Status: Acute COnt IV Levaquin IV Solumedrol and Duonebs rtc and prn Bipap , treat O2 sats to more than 90% Intubation as needed -- COPD with exacerbation Current Visit: Yes Status: Acute : COnt IV Levaquin IV Solumedrol and Duonebs rtc and prn Inhalation steroids and supportive care -- Anemia Current Visit: No Status: Acute Plan to address problem: Anemia work up -- IDDM (insulin dependent diabetes mellitus) Current Visit: Yes Status: Chronic Cnt home insulin and coverage Check A1c Accu-Chek sliding scale coverage -- HTN (hypertension) Current Visit: Yes Status: Chronic Cont antihypertensives PRN medications -- HLD (hyperlipidemia) Current Visit: Yes Status: Chronic Cont statins, low-cholesterol diet --GERD (gastroesophageal reflux disease) Current Visit: Yes Status: Chronic Cont protonix -- Depression Current Visit: Yes Status: Chronic cont Sertraline, supportive care --DVT prophylaxis Current Visit: Yes Status: Acute On Lovenox and GI prophylaxis Full CODE STATUS; Monitor closely and adjust management as needed Plan of care reviewed with the patient and his nurse Follow pulmonary evaluation and recommendations History Interval history: Patient seen and examined medical records reviewed Admitted with worsening shortness of breath and cough Feels slightly better Alert awake oriented x3 Vital signs noted, not in acute distress Hospitalist Physical - Constitutional Vitals: Temp Pulse Resp BP Pulse Ox 98.5 F 59 L 18 118/74 100 01/11/19 05:15 01/11/19 09:17 01/11/19 07:41 01/11/19 04:21 01/11/19 04:21 General appearance: Present: no acute distress, well-nourished - EENT Eyes: Present: PERRL, EOM intact - Neck Neck: Present: supple, normal ROM - Respiratory Respiratory effort: normal Respiratory: bilateral: diminished, negative: rales, rhonchi, wheezing - Cardiovascular Rhythm: regular Heart Sounds: Present: S1 & S2 - Extremities Extremities: no ischemia, No edema - Abdominal General gastrointestinal: soft, non-tender, non-distended, normal bowel sounds - Integumentary Integumentary: Present: clear, warm - Psychiatric Psychiatric: appropriate mood/affect, cooperative - Neurologic Neurologic: CNII-XII intact, moves all extremities Results - Labs CBC & Chem 7: 01/11/19 03:41 01/11/19 03:41 Labs: Laboratory Last Values WBC 5.5 K/mm3 (4.5-11.0) 01/11/19 03:41 RBC 3.71 M/mm3 (3.65-5.03) 01/11/19 03:41 Hgb 10.4 gm/dl (11.8-15.2) L 01/11/19 03:41 Hct 31.5 % (35.5-45.6) L 01/11/19 03:41 MCV 85 fl (84-94) 01/11/19 03:41 MCH 28 pg (28-32) 01/11/19 03:41 MCHC 33 % (32-34) 01/11/19 03:41 RDW 21.4 % (13.2-15.2) H 01/11/19 03:41 Plt Count 142 K/mm3 (140-440) 01/11/19 03:41 Lymph % (Auto) 12.8 % (13.4-35.0) L 01/11/19 03:41 [place] % (Auto) 4.1 % (0.0-7.3) 01/11/19 03:41 Eos % (Auto) 0.0 % (0.0-4.3) 01/11/19 03:41 Baso % (Auto) 0.2 % (0.0-1.8) 01/11/19 03:41 Lymph # 0.7 K/mm3 (1.2-5.4) L 01/11/19 03:41 [place] # 0.2 K/mm3 (0.0-0.8) 01/11/19 03:41 Eos # 0.0 K/mm3 (0.0-0.4) 01/11/19 03:41 Baso # 0.0 K/mm3 (0.0-0.1) 01/11/19 03:41 Seg Neutrophils % 82.9 % (40.0-70.0) H 01/11/19 03:41 Seg Neutrophils # 4.6 K/mm3 (1.8-7.7) 01/11/19 03:41 POC ABG pH 7.431 (7.35-7.45) 01/10/19 14:45 POC ABG pCO2 33.7 (35-45) L 01/10/19 14:45 POC ABG pO2 76 (80-105) L 01/10/19 14:45 POC ABG HCO3 22.4 (22-26 mml/L) 01/10/19 14:45 POC ABG Total CO2 23 (23-27mmol/L) 01/10/19 14:45 POC ABG O2 Sat 96 01/10/19 14:45 POC ABG Base Excess -2 ((-2) - (+3)mmol/L) 01/10/19 14:45 FiO2 35 % 01/10/19 14:45 Sodium 138 mmol/L (137-145) 01/11/19 03:41 Potassium 4.0 mmol/L (3.6-5.0) 01/11/19 03:41 Chloride 99.7 mmol/L (98-107) 01/11/19 03:41 Carbon Dioxide 18 mmol/L (22-30) L 01/11/19 03:41 Anion Gap 24 mmol/L 01/11/19 03:41 BUN 20 mg/dL (9-20) 01/11/19 03:41 Creatinine 1.0 mg/dL (0.8-1.5) 01/11/19 03:41 Estimated GFR > 60 ml/min 01/11/19 03:41 BUN/Creatinine Ratio 20 % 01/11/19 03:41 Glucose 232 mg/dL (75-100) H 01/11/19 03:41 POC Glucose 234 (70-105) H 01/11/19 07:52 Hemoglobin A1c 6.4 % (4-6) H 01/11/19 03:41 Lactic Acid 0.80 mmol/L (0.7-2.0) 01/10/19 17:01 Calcium 9.2 mg/dL (8.4-10.2) 01/11/19 03:41 Iron 44 ug/dL (49-181) L 01/11/19 00:35 TIBC 346 mcg/dL (250-450) 01/11/19 00:35 % Saturation 12.72 % 01/11/19 00:35 Transferrin 301 mg/dl (180-329) 01/11/19 00:35 Total Bilirubin 1.00 mg/dL (0.1-1.2) 01/11/19 03:41 AST 18 units/L (5-40) 01/11/19 03:41 ALT 10 units/L (7-56) 01/11/19 03:41 Alkaline Phosphatase 65 units/L (35-129) 01/11/19 03:41 Troponin T < 0.010 ng/mL (0.00-0.029) 01/10/19 13:36 NT-Pro-B Natriuret Pep 3867 pg/mL (0-900) H 01/10/19 13:36 Total Protein 7.6 g/dL (6.3-8.2) 01/11/19 03:41 Albumin 3.6 g/dL (3.9-5) L 01/11/19 03:41 Albumin/Globulin Ratio 0.9 % 01/11/19 03:41 Vitamin B12 1870 pg/mL (211-911) H 01/11/19 00:35 Urine Color Straw (Yellow) 01/10/19 Unknown Urine Turbidity Clear (Clear) 01/10/19 Unknown Urine pH 5.0 (5.0-7.0) 01/10/19 Unknown Ur Specific [place] 1.005 (1.003-1.030) 01/10/19 Unknown Urine Protein <15 mg/dl mg/dL (Negative) 01/10/19 Unknown Urine Glucose (UA) Neg mg/dL (Negative) 01/10/19 Unknown Urine Ketones Neg mg/dL (Negative) 01/10/19 Unknown Urine Blood Neg (Negative) 01/10/19 Unknown Urine Nitrite Neg (Negative) 01/10/19 Unknown Urine Bilirubin Neg (Negative) 01/10/19 Unknown Urine Urobilinogen < 2.0 mg/dL (<2.0) 01/10/19 Unknown Ur Leukocyte Esterase Neg (Negative) 01/10/19 Unknown Urine WBC (Auto) < 1.0 /HPF (0.0-6.0) 01/10/19 Unknown Urine RBC (Auto) 1.0 /HPF (0.0-6.0) 01/10/19 Unknown Urine Mucus Few /HPF 01/10/19 Unknown Active Medications - Current Medications Current Medications: Generic Name Dose Route Start Last Admin Trade Name Freq PRN Reason Stop Dose Admin Acetaminophen 650 mg 01/10/19 21:33 Tylenol PO Q4H PRN Pain MILD(1-3)/Fever >100.5/SELLERS Albuterol 2.5 mg 01/10/19 21:55 Proventil IH Q3HRT PRN Wheezing Albuterol/Ipratropium 1 ampul 01/11/19 08:00 01/11/19 07:39 Duoneb *Not For Prn Use* IH 1 ampul QIDRT CANDIE Administration Carvedilol 25 mg 01/10/19 22:00 01/10/19 22:07 Coreg PO 25 mg BID CANDIE Administration Doxazosin Mesylate 2 mg 01/10/19 22:00 01/10/19 22:06 Cardura PO 2 mg BID CANDIE Administration Enoxaparin Sodium 40 mg 01/10/19 22:00 01/10/19 22:08 Enoxaparin SUB-Q 40 mg QDAY@2200 [facility] Administration Gabapentin 300 mg 01/11/19 08:00 01/11/19 08:37 Gabapentin PO 300 mg TID CANDIE Administration Hydromorphone HCl 0.5 mg 01/10/19 21:33 Dilaudid IV Q3H PRN Pain , Severe (7-10) Levofloxacin/Dextrose 750 mg in 150 mls @ 100 mls/hr 01/10/19 22:00 01/10/19 22:04 Levaquin 750mg/150ml IV 100 mls/hr Q24HR@2200 [facility] Administration Protocol Insulin Human Isoph/Insulin Regular 20 unit 01/10/19 22:00 01/11/19 08:37 Humulin 70/30 SUB-Q 20 unit BIDDIAB [facility] Administration Insulin Human Lispro 0 unit 01/10/19 22:00 01/11/19 08:37 Humalog SUB-Q 3 unit ACHS [facility] Administration Protocol Losartan Potassium 100 mg 01/10/19 22:00 01/10/19 22:05 Cozaar PO 100 mg QDAY [facility] Administration Methylprednisolone Sodium Succinate 80 mg 01/10/19 22:00 01/11/19 05:27 Solu-Medrol IV 80 mg Q8HR [facility] Administration Ondansetron HCl 4 mg 01/10/19 21:33 Zofran IV Q8H PRN Nausea And Vomiting Pantoprazole Sodium 40 mg 01/11/19 10:00 Protonix PO QDAY [facility] Pravastatin Sodium 80 mg 01/10/19 22:00 01/10/19 22:06 Pravachol PO 80 mg QHS CANDIE Administration Sertraline HCl 100 mg 01/10/19 22:00 01/10/19 22:06 Zoloft PO 100 mg QDAY CANDIE Administration Sodium Chloride 10 ml 01/10/19 22:00 01/10/19 22:08 Sodium Chloride Flush Syringe 10 Ml IV 10 ml BID CANDIE Administration Sodium Chloride 10 ml 01/10/19 21:33 01/11/19 05:28 Sodium Chloride Flush Syringe 10 Ml IV 10 ml PRN PRN Administration LINE FLUSH Zolpidem Tartrate 5 mg 01/10/19 21:33 01/10/19 22:07 Ambien PO 5 mg QHS PRN Administration Insomnia
[2019-01-11] MEDS: PANTOPRAZOLE 40 MG TAB PO SCH (10:32)
[2019-01-11] MEDS: SERTRALINE 100 MG TAB PO SCH (10:32)
[2019-01-11] MEDS: DOXAZOSIN 1 MG TAB PO SCH ×2 (10:32→21:01)
[2019-01-11] MEDS: LOSARTAN 50 MG TAB PO SCH (10:32)
[2019-01-11] MEDS: carvediloL 25 MG TAB PO SCH ×2 (10:33→21:02)
[2019-01-11] MEDS: FUROSEMIDE 20 MG/2 ML INJ IV SCH (17:57)
--- NOTE | 2019-01-11 18:21 | Consultation ---
PULMONARY CONSULT NOTE CONSULTING PHYSICIAN: Dr. Larson. REASON FOR CONSULTATION: Acute COPD exacerbation. CHIEF COMPLAINT AND HISTORY OF PRESENT ILLNESS: As follows: The patient is a 79-year-old -[place]namese male with past medical history significant amongst other things both for a diagnosis of cardiomyopathy, obstructive sleep apnea, but also chronic obstructive lung disease, not on home oxygen, came into the Emergency Room yesterday, I believe complaining of shortness of breath. He admits to vaping the night before and then he states he woke up with increased shortness of breath. Denied chest pain. He felt like his chest was tight. He denied any hemoptysis. He did have mild cough. He denied any expectoration. He denied fevers or chills. He denied any sick contacts. He felt like it was the vaping essentially that brought up his shortness of breath. He came into the Emergency Room. He was evaluated in the Emergency Room, required supplemental oxygen with improvement in his symptoms. He admits to a 10+ pack year tobacco smoking history, but states that he quit smoking over the past 5 years at least. He denied nausea, vomiting, or overt aspiration. He denied any new onset leg pain or swelling either unilaterally or bilaterally or any suggestion of a deep venous thrombosis. He also denied any history of venous thromboembolic phenomenon. This really is as much of the history of presentation as I have. PAST MEDICAL HISTORY: Significant for hypertension, hyperlipidemia, coronary artery disease, history of diabetes, arthritis, history of COPD, history of dementia and a history of obstructive sleep apnea for which he states he is compliant with his CPAP therapy. PAST SURGICAL HISTORY: I believe he has had an AICD placed before. MEDICATIONS: He was on at the time I stopped by to see him were reviewed, pertinent medications include the following: Tylenol 650 mg p.o. q. 4 hours p.r.n. mild pain or fevers, DuoNeb nebulizer treatments scheduled q.i.d., Coreg 25 mg p.o. b.i.d., Cardura 2 mg p.o. b.i.d., Lovenox 40 mg subcutaneous daily, Neurontin 300 mg p.o. t.i.d., Dilaudid 0.5 mg IV q. 3 hours p.r.n. severe pain, insulin 70/30, 20 units subcutaneous b.i.d., also insulin via sliding scale, Levaquin 750 mg IV daily, Cozaar 100 mg p.o. daily, Solu-Medrol 80 mg IV q. 8 hours scheduled, Zofran 4 mg IV q. 8 hours p.r.n. nausea and vomiting, Protonix 40 mg p.o. daily, Pravachol 80 mg p.o. at bedtime, Zoloft 200 mg p.o. daily, and Ambien 5 mg p.o. at bedtime p.r.n. insomnia. ALLERGIES: No known drug allergies. DIET: Thin gentleman. Denies acute weight loss or gain in the preceding few weeks to months. FAMILY AND SOCIAL HISTORY: Apparently lives in the community. He is . Denies current alcohol, tobacco, or illicit drug use or abuse. He does have a 10+ pack year tobacco smoking history, probably more. FAMILY HISTORY: Otherwise, he denies any significant family history. REVIEW OF SYSTEMS: No loss of consciousness. No new onset seizures. No new onset focal weakness. Denied gross hematochezia or melena. Denies gross hematuria or dysuria. Denied hematemesis, denied hemoptysis. Really denies any chest pains or palpitations. He denies heat or cold intolerance. Denies polydipsia or polyuria. Again denies any periods of unexplained sadness and/or elation as may be consistent with psychiatric type disorders. Complete 13-system review of systems obtained. Pertinent positives and/or negatives as in body of history above, otherwise noncontributory. PHYSICAL EXAMINATION: VITAL SIGNS: At presentation, he was afebrile, temperature 98.5 degrees Fahrenheit with a pulse of 102, respiratory rate of 24, blood pressure 165/89, O2 sats were 97%, inspired oxygen concentration at that time was not recorded. When I stopped by to see him, O2 sats were 99%, I believe that was on 3 liters nasal cannula. GENERAL: An elderly looking -Vietnamese male. Normocephalic, atraumatic, resting in bed with mildly increased respiratory effort at rest. HEAD, EYES, EARS, NOSE AND THROAT: He was anicteric, no conjunctival erythema. Oropharynx was moist. Mallampati #2 oropharynx. No gross jugular venous distention, no thyromegaly. Grossly no palpable lymph nodes in the supraclavicular or submandibular lymph node chains. LUNGS: Auscultation of both lung vidal significant for diminished bilateral breath sounds, prolonged expiratory phase, bilateral expiratory wheezing, coarse wheezing. HEART: Heart sounds 1 and 2 are heard. They were regular in rate and rhythm at the time of my evaluation without overt rubs or murmurs. ABDOMEN: Soft, flat. Bowel sounds are positive, nontender, no palpable hepatosplenomegaly. EXTREMITIES: Without overt digital clubbing, no cyanosis, no pedal edema. Pedal pulses were 2+ bilaterally. NEUROLOGIC: Pupils were equal, round, 4 mm, reactive to light. Extraocular muscle movements were intact. He moves all 4 extremities spontaneously. SKIN: Normal turgor without overt cellulitis or rash. PSYCHIATRIC: His mood was normal. His affect was appropriate. LABORATORY DATA: From my review are as follows: Admission white cell count 9500, hemoglobin 10.6, hematocrit 32.3 and platelet count of 157. ABG at presentation showed a pH of 7.43, pCO2 of 34, pO2 of 76, that was on 35% FiO2. Serum sodium 138, potassium 3.7, chloride 103, bicarbonate 25, BUN 11, creatinine 1.0, glucose was 157. Lactic acid level was within normal limits. BNP was elevated at 3867. Troponin within normal limits. Liver function tests otherwise within normal limits. Urinalysis was unremarkable. Two sets of blood cultures were drawn, no growth to date. He had a chest x-ray done. I have reviewed the interpretation of the radiologist and attempting to pull up the films for further review. Chest x-ray shows borderline cardiomegaly, implanted cardiac device in the left upper anterior chest wall. Increased interstitial markings both in an acute and chronic looking manner. Mild blunting of the left costophrenic angle compatible with a very small pleural effusion. He does have evidence of alveolar infiltrates bilaterally. No gross pneumothorax, no gross bony fracture and some plate-like atelectasis in the bases. I do not have any other chest x-ray to compare this with. ASSESSMENT: 1. Acute hypoxemic respiratory failure. 2. Acute chronic obstructive pulmonary disease exacerbation. 3. Possible acute congestive heart failure exacerbation. 4. History of obstructive sleep apnea. 5. Tobacco use disorder. 6. History of diabetes. 7. History of arthritis. 8. History of dementia. 9. Anemia that is normocytic. 10. Mild metabolic acidosis with a serum bicarbonate of 18. 11. Elevated serum BNP. PLAN: Again, I do feel there is probably an element of pulmonary edema in this gentleman. The BUN and creatinine levels currently do not suggest an overt acute kidney injury. I am actually a little bit bothered by the low serum bicarbonates. I do feel he would benefit overall from diuresis. I will go ahead with Lasix 20 mg IV b.i.d. His left heart catheterization in, I believe, 2012 showed an ejection fraction of 40% at that time. I will do 2 doses of Lasix 20 mg IV b.i.d. Cardiology evaluation will be at the behest of the attending physician. With regards to the acute COPD exacerbation, I do agree with bronchodilator treatment. I will add long-acting bronchodilators with Brovana as well as inhaled corticosteroids. I will also continue the systemic corticosteroids. I do agree with the empiric community-acquired pneumonia therapy. I will reduce the frequency of the DuoNeb treatments to b.i.d. with the addition of Brovana. He is appropriately on GI and DVT prophylaxis. We will continue BiPAP therapy scheduled at bedtime for his sleep apnea treatment, but also to maintain ventilation while in the hospital. P.r.n. daytime use will be allowed. Again he is appropriately on GI and DVT prophylaxis. Flu and pneumonia vaccination will be addressed per protocol. Thank you very much for the consult. We will follow along and make further recommendations as the picture progresses/becomes clearer. JOB# [id number] AMINA/TRELL HAILE
[2019-01-11] MEDS: BUDESONIDE 0.5 MG/2 ML NEBU IH SCH (20:44)
[2019-01-11] MEDS: ARFORMOTEROL 15 MCG/2 ML NEBU IH SCH (20:44)
[2019-01-11] MEDS: PRAVASTATIN 80 MG TAB PO SCH (21:01)
[2019-01-11] MEDS: ENOXAPARIN 40 MG/0.4 ML INJ SUB-Q SCH (21:03)
[2019-01-11] MEDS ORDERED: IPRATROPIUM/ALBUTEROL SULFATE 3 ML AMPUL.NEB IH SCH (22:00)
[2019-01-12] MEDS: FUROSEMIDE 20 MG/2 ML INJ IV SCH (05:18)
[2019-01-12] MEDS: methylPREDNISolone Sod Succinate 125 MG/2 ML INJ IV SCH ×3 (05:18→21:31)
[2019-01-12] MEDS: BUDESONIDE 0.5 MG/2 ML NEBU IH SCH ×2 (07:59→20:07)
[2019-01-12] MEDS: IPRATROPIUM/ALBUTEROL SULFATE 3 ML AMPUL.NEB IH SCH ×2 (07:59→20:07)
[2019-01-12] MEDS: ARFORMOTEROL 15 MCG/2 ML NEBU IH SCH ×2 (07:59→20:07)
[2019-01-12] MEDS ORDERED: INSULIN NPH/REGULAR 70/30 INJ SUB-Q SCH ×2 (08:00→15:54)
[2019-01-12] MEDS: INSULIN LISPRO 100 UNIT/ML SUB-Q SCH ×4 (08:25→21:31)
[2019-01-12] MEDS: SERTRALINE 100 MG TAB PO SCH (09:44)
[2019-01-12] MEDS: GABAPENTIN 300 MG CAP PO SCH ×3 (09:45→20:47)
[2019-01-12] MEDS: carvediloL 25 MG TAB PO SCH ×2 (09:45→21:29)
[2019-01-12] MEDS: PANTOPRAZOLE 40 MG TAB PO SCH (09:45)
[2019-01-12] MEDS: DOXAZOSIN 1 MG TAB PO SCH ×2 (09:46→21:29)
[2019-01-12] MEDS: LOSARTAN 50 MG TAB PO SCH (09:46)
--- NOTE | 2019-01-12 10:51 | Progress Note ---
Assessment and Plan Assessment and plan: -- Acute respiratory failure with hypoxia Current Visit: Yes Status: Acute Symptoms slightly improved COnt IV Levaquin IV Solumedrol and Duonebs Bipap as needed, titrate O2 sats to more than 90% Pulmonary following -- COPD with exacerbation Current Visit: Yes Status: Acute : COnt IV Levaquin IV Solumedrol and Duonebs Inhalation steroids and supportive care -- IDDM (insulin dependent diabetes mellitus) Current Visit: Yes Status: Chronic Check A1c Accu-Chek sliding scale coverage 7030 insulin 25 units twice a day, 6.5 -- HTN (hypertension) Current Visit: Yes Status: Chronic Cont antihypertensives PRN medications -- HLD (hyperlipidemia) Current Visit: Yes Status: Chronic Cont statins, low-cholesterol diet --GERD (gastroesophageal reflux disease) Current Visit: Yes Status: Chronic Cont protonix -- Depression Current Visit: Yes Status: Chronic cont Sertraline, supportive care --DVT prophylaxis Current Visit: Yes Status: Acute On Lovenox and GI prophylaxis Full CODE STATUS; Monitor closely and adjust management as needed Plan of care reviewed with the patient and his nurse Follow pulmonary evaluation and recommendations History Interval history: Patient seen and examined medical records reviewed Patient fevers Slightly better, Denies any chest pain shortness of breath significantly improved Vital signs noted, Hospitalist Physical - Constitutional Vitals: Temp Pulse Resp BP Pulse Ox 97.9 F 63 18 120/63 99 01/12/19 07:23 01/12/19 07:23 01/12/19 07:23 01/12/19 07:23 01/12/19 07:23 General appearance: Present: no acute distress, well-nourished - EENT Eyes: Present: PERRL, EOM intact - Neck Neck: Present: supple, normal ROM - Respiratory Respiratory effort: normal Respiratory: bilateral: diminished, wheezing (scanty), negative: rales, rhonchi - Cardiovascular Rhythm: regular Heart Sounds: Present: S1 & S2 - Extremities Extremities: no ischemia, No edema - Abdominal General gastrointestinal: soft, non-tender, non-distended, normal bowel sounds - Integumentary Integumentary: Present: clear, warm - Psychiatric Psychiatric: appropriate mood/affect, cooperative - Neurologic Neurologic: CNII-XII intact, moves all extremities Results - Labs CBC & Chem 7: 01/11/19 03:41 01/11/19 03:41 Labs: Laboratory Last Values WBC 5.5 K/mm3 (4.5-11.0) 01/11/19 03:41 RBC 3.71 M/mm3 (3.65-5.03) 01/11/19 03:41 Hgb 10.4 gm/dl (11.8-15.2) L 01/11/19 03:41 Hct 31.5 % (35.5-45.6) L 01/11/19 03:41 MCV 85 fl (84-94) 01/11/19 03:41 MCH 28 pg (28-32) 01/11/19 03:41 MCHC 33 % (32-34) 01/11/19 03:41 RDW 21.4 % (13.2-15.2) H 01/11/19 03:41 Plt Count 142 K/mm3 (140-440) 01/11/19 03:41 Lymph % (Auto) 12.8 % (13.4-35.0) L 01/11/19 03:41 [place] % (Auto) 4.1 % (0.0-7.3) 01/11/19 03:41 Eos % (Auto) 0.0 % (0.0-4.3) 01/11/19 03:41 Baso % (Auto) 0.2 % (0.0-1.8) 01/11/19 03:41 Lymph # 0.7 K/mm3 (1.2-5.4) L 01/11/19 03:41 [place] # 0.2 K/mm3 (0.0-0.8) 01/11/19 03:41 Eos # 0.0 K/mm3 (0.0-0.4) 01/11/19 03:41 Baso # 0.0 K/mm3 (0.0-0.1) 01/11/19 03:41 Seg Neutrophils % 82.9 % (40.0-70.0) H 01/11/19 03:41 Seg Neutrophils # 4.6 K/mm3 (1.8-7.7) 01/11/19 03:41 POC ABG pH 7.431 (7.35-7.45) 01/10/19 14:45 POC ABG pCO2 33.7 (35-45) L 01/10/19 14:45 POC ABG pO2 76 (80-105) L 01/10/19 14:45 POC ABG HCO3 22.4 (22-26 mml/L) 01/10/19 14:45 POC ABG Total CO2 23 (23-27mmol/L) 01/10/19 14:45 POC ABG O2 Sat 96 01/10/19 14:45 POC ABG Base Excess -2 ((-2) - (+3)mmol/L) 01/10/19 14:45 FiO2 35 % 01/10/19 14:45 Sodium 138 mmol/L (137-145) 01/11/19 03:41 Potassium 4.0 mmol/L (3.6-5.0) 01/11/19 03:41 Chloride 99.7 mmol/L (98-107) 01/11/19 03:41 Carbon Dioxide 18 mmol/L (22-30) L 01/11/19 03:41 Anion Gap 24 mmol/L 01/11/19 03:41 BUN 20 mg/dL (9-20) 01/11/19 03:41 Creatinine 1.0 mg/dL (0.8-1.5) 01/11/19 03:41 Estimated GFR > 60 ml/min 01/11/19 03:41 BUN/Creatinine Ratio 20 % 01/11/19 03:41 Glucose 232 mg/dL (75-100) H 01/11/19 03:41 POC Glucose 194 (70-105) H 01/12/19 07:30 Hemoglobin A1c 6.4 % (4-6) H 01/11/19 03:41 Lactic Acid 0.80 mmol/L (0.7-2.0) 01/10/19 17:01 Calcium 9.2 mg/dL (8.4-10.2) 01/11/19 03:41 Iron 44 ug/dL (49-181) L 01/11/19 00:35 TIBC 346 mcg/dL (250-450) 01/11/19 00:35 % Saturation 12.72 % 01/11/19 00:35 Transferrin 301 mg/dl (180-329) 01/11/19 00:35 Total Bilirubin 1.00 mg/dL (0.1-1.2) 01/11/19 03:41 AST 18 units/L (5-40) 01/11/19 03:41 ALT 10 units/L (7-56) 01/11/19 03:41 Alkaline Phosphatase 65 units/L (35-129) 01/11/19 03:41 Troponin T < 0.010 ng/mL (0.00-0.029) 01/10/19 13:36 NT-Pro-B Natriuret Pep 3867 pg/mL (0-900) H 01/10/19 13:36 Total Protein 7.6 g/dL (6.3-8.2) 01/11/19 03:41 Albumin 3.6 g/dL (3.9-5) L 01/11/19 03:41 Albumin/Globulin Ratio 0.9 % 01/11/19 03:41 Vitamin B12 1870 pg/mL (211-911) H 01/11/19 00:35 Urine Color Straw (Yellow) 01/10/19 Unknown Urine Turbidity Clear (Clear) 01/10/19 Unknown Urine pH 5.0 (5.0-7.0) 01/10/19 Unknown Ur Specific [place] 1.005 (1.003-1.030) 01/10/19 Unknown Urine Protein <15 mg/dl mg/dL (Negative) 01/10/19 Unknown Urine Glucose (UA) Neg mg/dL (Negative) 01/10/19 Unknown Urine Ketones Neg mg/dL (Negative) 01/10/19 Unknown Urine Blood Neg (Negative) 01/10/19 Unknown Urine Nitrite Neg (Negative) 01/10/19 Unknown Urine Bilirubin Neg (Negative) 01/10/19 Unknown Urine Urobilinogen < 2.0 mg/dL (<2.0) 01/10/19 Unknown Ur Leukocyte Esterase Neg (Negative) 01/10/19 Unknown Urine WBC (Auto) < 1.0 /HPF (0.0-6.0) 01/10/19 Unknown Urine RBC (Auto) 1.0 /HPF (0.0-6.0) 01/10/19 Unknown Urine Mucus Few /HPF 01/10/19 Unknown Active Medications - Current Medications Current Medications: Generic Name Dose Route Start Last Admin Trade Name Freq PRN Reason Stop Dose Admin Acetaminophen 650 mg 01/10/19 21:33 Tylenol PO Q4H PRN Pain MILD(1-3)/Fever >100.5/SELLERS Albuterol 2.5 mg 01/10/19 21:55 Proventil IH Q3HRT PRN Wheezing Albuterol/Ipratropium 1 ampul 01/11/19 20:00 01/12/19 07:59 Duoneb *Not For Prn Use* IH 1 ampul BIDRT CANDIE Administration Arformoterol Tartrate 15 mcg 01/11/19 20:00 01/12/19 07:59 Brovana Nebu IH 15 mcg Q12HRT CANDIE Administration Budesonide 0.5 mg 01/11/19 20:00 01/12/19 07:59 Pulmicort IH 0.5 mg Q12HRT CANDIE Administration Carvedilol 25 mg 01/10/19 22:00 01/12/19 09:45 Coreg PO 25 mg BID CANDIE Administration Doxazosin Mesylate 2 mg 01/10/19 22:00 01/12/19 09:46 Cardura PO 2 mg BID CANDIE Administration Enoxaparin Sodium 40 mg 01/10/19 22:00 01/11/19 21:03 Enoxaparin SUB-Q 40 mg QDAY@2200 CANDIE Administration Gabapentin 300 mg 01/11/19 08:00 01/12/19 09:45 Gabapentin PO 300 mg TID CANDIE Administration Hydromorphone HCl 0.5 mg 01/10/19 21:33 Dilaudid IV Q3H PRN Pain , Severe (7-10) Levofloxacin/Dextrose 750 mg in 150 mls @ 100 mls/hr 01/10/19 22:00 01/11/19 21:05 Levaquin 750mg/150ml IV 100 mls/hr Q24HR@2200 [facility] Administration Protocol Insulin Human Isoph/Insulin Regular 25 unit 01/12/19 08:00 Humulin 70/30 SUB-Q BIDDIAB CANDIE Insulin Human Lispro 0 unit 01/10/19 22:00 01/11/19 21:21 Humalog SUB-Q 2 unit ACHS [facility] Administration Protocol Losartan Potassium 100 mg 01/10/19 22:00 01/12/19 09:46 Cozaar PO 100 mg QDAY CANDIE Administration Methylprednisolone Sodium Succinate 60 mg 01/11/19 17:28 01/12/19 05:18 Solu-Medrol IV 60 mg Q8HR CANDIE Administration Ondansetron HCl 4 mg 01/10/19 21:33 Zofran IV Q8H PRN Nausea And Vomiting Pantoprazole Sodium 40 mg 01/11/19 10:00 01/12/19 09:45 Protonix PO 40 mg QDAY CANDIE Administration Pravastatin Sodium 80 mg 01/10/19 22:00 01/11/19 21:01 Pravachol PO 80 mg QHS CANDIE Administration Sertraline HCl 100 mg 01/10/19 22:00 01/12/19 09:44 Zoloft PO 100 mg QDAY CANDIE Administration Sodium Chloride 10 ml 01/10/19 22:00 01/11/19 21:29 Sodium Chloride Flush Syringe 10 Ml IV 10 ml BID CANDIE Administration Sodium Chloride 10 ml 01/10/19 21:33 01/11/19 05:28 Sodium Chloride Flush Syringe 10 Ml IV 10 ml PRN PRN Administration LINE FLUSH Zolpidem Tartrate 5 mg 01/10/19 21:33 01/10/19 22:07 Ambien PO 5 mg QHS PRN Administration Insomnia
--- NOTE | 2019-01-12 14:28 | Progress Note ---
Assessment and Plan Acute hypoxemic respiratory failure. Possible Vaping Associated Lung Injury (EVALI) Acute chronic obstructive pulmonary disease exacerbation. Possible acute congestive heart failure exacerbation. History of obstructive sleep apnea. Tobacco use disorder. History of diabetes. History of arthritis. History of dementia. Anemia that is normocytic. Mild metabolic acidosis with a serum bicarbonate of 18. Elevated serum BNP. - continue supplemental oxygen as needed to keep O2 sat's > 90% - continue bronchodilators (HERIBERTO & LABA) with pulmonary hygiene per RT - continue systemic steroids with slow taper - continue inhaled corticosteroids - continue empiric CAP directed antibiotics for severe COPD exacerbation - PT/OT as tolerated - mobility protocols for pressure ulcer prophylaxis - GI & VTE prophylaxis - tobacco abstinence strongly counseled at bedside - Flu & Pneumovax addressed per protocol - report EVALI per protocol .... re-evaluate in am & prn Subjective Date of service: 01/12/19 Principal diagnosis: Ac. hypoxemic resp failure; Possible EVALI; AE-COPD; Poss. CHF exacerbation Interval history: Patient is seen today for: Acute hypoxemic respiratory failure; Possible Vaping Associated Lung Injury (EVALI); Acute chronic obstructive pulmonary disease exacerbation; Possible acute congestive heart failure exacerbation; BUSTER; Tobacco use disorder. Seen and examined at bedside; 24-hour events reviewed; nursing and respiratory care staff consulted; no adverse overnight events reported to me; resting peacefully in bed; feels better; tolerated BIPAP well; no chest pains; no hemoptysis; No N/V/F/C Objective Vital Signs - 12hr 01/12/19 01/12/19 01/12/19 03:55 07:23 09:00 Temperature 98.0 F 97.9 F Pulse Rate 62 63 Pulse Rate [ 63 Anterior Bilateral Throughout] Respiratory 100 H 18 Rate Respiratory 18 Rate [Anterior Bilateral Throughout] Blood Pressure 113/69 120/63 O2 Sat by Pulse 100 99 Oximetry 01/12/19 01/12/19 11:51 12:06 Temperature 98.3 F Pulse Rate 70 Pulse Rate [ Anterior Bilateral Throughout] Respiratory 18 22 Rate Respiratory Rate [Anterior Bilateral Throughout] Blood Pressure 127/50 O2 Sat by Pulse 100 100 Oximetry CBC and BMP: 01/11/19 03:41 01/11/19 03:41 ABG, PT/INR, D-dimer: ABG POC ABG pH 7.431 (7.35-7.45) 01/10/19 14:45 POC ABG pCO2 33.7 (35-45) L 01/10/19 14:45 POC ABG pO2 76 (80-105) L 01/10/19 14:45 POC ABG HCO3 22.4 (22-26 mml/L) 01/10/19 14:45 POC ABG Total CO2 23 (23-27mmol/L) 01/10/19 14:45 POC ABG O2 Sat 96 01/10/19 14:45 Abnormal lab findings: Abnormal Labs 01/10/19 01/10/19 01/10/19 13:36 13:36 13:48 Hgb 10.6 L Hct 32.3 L MCV 83 L MCH 27 L RDW 21.1 H Lymph % (Auto) Lymph # Seg Neutrophils % POC ABG pCO2 POC ABG pO2 Carbon Dioxide Glucose 149 H POC Glucose 157 H Hemoglobin A1c Iron NT-Pro-B Natriuret Pep 3867 H Albumin 3.8 L Vitamin B12 01/10/19 01/10/19 01/11/19 14:45 21:57 00:35 Hgb Hct MCV MCH RDW Lymph % (Auto) Lymph # Seg Neutrophils % POC ABG pCO2 33.7 L POC ABG pO2 76 L Carbon Dioxide Glucose POC Glucose 291 H Hemoglobin A1c Iron 44 L NT-Pro-B Natriuret Pep Albumin Vitamin B12 01/11/19 01/11/19 01/11/19 00:35 03:41 03:41 Hgb 10.4 L Hct 31.5 L MCV MCH RDW 21.4 H Lymph % (Auto) 12.8 L Lymph # 0.7 L Seg Neutrophils % 82.9 H POC ABG pCO2 POC ABG pO2 Carbon Dioxide 18 L Glucose 232 H POC Glucose Hemoglobin A1c Iron NT-Pro-B Natriuret Pep Albumin 3.6 L Vitamin B12 1870 H 01/11/19 01/11/19 01/11/19 03:41 07:52 12:01 Hgb Hct MCV MCH RDW Lymph % (Auto) Lymph # Seg Neutrophils % POC ABG pCO2 POC ABG pO2 Carbon Dioxide Glucose POC Glucose 234 H 246 H Hemoglobin A1c 6.4 H Iron NT-Pro-B Natriuret Pep Albumin Vitamin B12 01/11/19 01/11/19 01/12/19 16:36 21:09 07:30 Hgb Hct MCV MCH RDW Lymph % (Auto) Lymph # Seg Neutrophils % POC ABG pCO2 POC ABG pO2 Carbon Dioxide Glucose POC Glucose 263 H 273 H 194 H Hemoglobin A1c Iron NT-Pro-B Natriuret Pep Albumin Vitamin B12 01/12/19 12:02 Hgb Hct MCV MCH RDW Lymph % (Auto) Lymph # Seg Neutrophils % POC ABG pCO2 POC ABG pO2 Carbon Dioxide Glucose POC Glucose 282 H Hemoglobin A1c Iron NT-Pro-B Natriuret Pep Albumin Vitamin B12
[2019-01-12] MEDS: INSULIN NPH/REGULAR 70/30 INJ SUB-Q SCH (18:40)
[2019-01-12] MEDS: levoFLOXacin 750 MG TAB PO SCH (21:29)
[2019-01-12] MEDS: PRAVASTATIN 80 MG TAB PO SCH (21:29)
[2019-01-12] MEDS: ENOXAPARIN 40 MG/0.4 ML INJ SUB-Q SCH (21:30)
[2019-01-13] MEDS: methylPREDNISolone Sod Succinate 125 MG/2 ML INJ IV SCH ×3 (05:47→21:47)
[2019-01-13] MEDS: GABAPENTIN 300 MG CAP PO SCH ×3 (08:41→20:24)
[2019-01-13] MEDS: INSULIN NPH/REGULAR 70/30 INJ SUB-Q SCH ×2 (08:41→17:06)
[2019-01-13] MEDS: INSULIN LISPRO 100 UNIT/ML SUB-Q SCH ×4 (08:54→21:51)
[2019-01-13] MEDS: IPRATROPIUM/ALBUTEROL SULFATE 3 ML AMPUL.NEB IH SCH ×2 (08:57→20:55)
[2019-01-13] MEDS: ARFORMOTEROL 15 MCG/2 ML NEBU IH SCH ×2 (08:57→20:55)
[2019-01-13] MEDS: BUDESONIDE 0.5 MG/2 ML NEBU IH SCH ×2 (08:58→20:55)
[2019-01-13] MEDS: DOXAZOSIN 1 MG TAB PO SCH ×2 (10:00→21:48)
[2019-01-13] MEDS: carvediloL 25 MG TAB PO SCH ×2 (10:01→21:50)
[2019-01-13] MEDS: SERTRALINE 100 MG TAB PO SCH (10:01)
[2019-01-13] MEDS: PANTOPRAZOLE 40 MG TAB PO SCH (10:01)
[2019-01-13] MEDS: LOSARTAN 50 MG TAB PO SCH (10:02)
--- NOTE | 2019-01-13 13:49 | Progress Note ---
Assessment and Plan Acute hypoxemic respiratory failure. Possible Vaping Associated Lung Injury (EVALI) Acute chronic obstructive pulmonary disease exacerbation. Possible acute congestive heart failure exacerbation. History of obstructive sleep apnea. Tobacco use disorder. History of diabetes. History of arthritis. History of dementia. Anemia that is normocytic. Mild metabolic acidosis with a serum bicarbonate of 18. Elevated serum BNP. - s/p diuretics course - continue NIV qhs for BUSTER - continue supplemental oxygen as needed to keep O2 sat's > 90% - continue bronchodilators (HERIBERTO & LABA) with pulmonary hygiene per RT - continue systemic steroids with slow taper - continue inhaled corticosteroids - complete empiric CAP directed antibiotics for severe COPD exacerbation - PT/OT as tolerated - mobility protocols for pressure ulcer prophylaxis - GI & VTE prophylaxis - tobacco abstinence strongly counseled at bedside - Flu & Pneumovax addressed per protocol - report EVALI per protocol .... re-evaluate in am & prn Subjective Date of service: 01/13/19 Principal diagnosis: Ac. hypoxemic resp failure; Possible EVALI; AE-COPD; Poss. CHF exacerbation Interval history: Patient is seen today for: Acute hypoxemic respiratory failure; Possible Vaping Associated Lung Injury (EVALI); Acute chronic obstructive pulmonary disease exacerbation; Possible acute congestive heart failure exacerbation; BUSTER; Tobacco use disorder. Seen and examined at bedside; 24-hour events reviewed; nursing and respiratory care staff consulted; no adverse overnight events reported to me; resting peacefully in bed; feels better; remains on supplemental oxygen; tolerating BIPAP; denies acute chest pains or palpitations Objective Vital Signs - 12hr 01/13/19 01/13/19 01/13/19 04:05 04:36 07:39 Temperature 97.3 F L 97.9 F Pulse Rate 52 L 57 L 59 L Pulse Rate [ Anterior Bilateral Throughout] Respiratory 20 18 Rate Respiratory Rate [Anterior Bilateral Throughout] Blood Pressure 115/62 118/55 O2 Sat by Pulse 100 100 Oximetry 01/13/19 01/13/19 01/13/19 08:58 10:00 10:01 Temperature Pulse Rate 69 64 Pulse Rate [ 64 Anterior Bilateral Throughout] Respiratory Rate Respiratory 18 Rate [Anterior Bilateral Throughout] Blood Pressure 111/66 118/54 O2 Sat by Pulse Oximetry 01/13/19 01/13/19 01/13/19 10:02 10:04 10:28 Temperature Pulse Rate 64 Pulse Rate [ Anterior Bilateral Throughout] Respiratory 18 18 Rate Respiratory Rate [Anterior Bilateral Throughout] Blood Pressure 118/54 118/54 O2 Sat by Pulse 98 Oximetry 01/13/19 01/13/19 11:46 11:50 Temperature Pulse Rate Pulse Rate [ Anterior Bilateral Throughout] Respiratory 18 18 Rate Respiratory Rate [Anterior Bilateral Throughout] Blood Pressure 114/59 O2 Sat by Pulse Oximetry Constitutional: no acute distress, other (elderly looking AAM, normocephalic with mildly increased resp effort at rest) Eyes: non-icteric ENT: oropharynx moist Neck: supple, no lymphadenopathy, no JVD Effort: mildly labored Ascultation: Bilateral: diminished breath sounds, rhonchi Percussion: Bilateral: not dull Cardiovascular: regular rate and rhythm Gastrointestinal: normoactive bowel sounds, soft, non-tender, non-distended Integumentary: normal Extremities: no cyanosis, no edema, pulses normal, no ischemia or petechiae Neurologic: normal mental status, non-focal exam, pupils equal and round, CN II- XII normal, motor strength normal and Psychiatric: mood appropriate, affect normal CBC and BMP: 01/14/19 05:02 01/14/19 05:02 ABG, PT/INR, D-dimer: ABG POC ABG pH 7.431 (7.35-7.45) 01/10/19 14:45 POC ABG pCO2 33.7 (35-45) L 01/10/19 14:45 POC ABG pO2 76 (80-105) L 01/10/19 14:45 POC ABG HCO3 22.4 (22-26 mml/L) 01/10/19 14:45 POC ABG Total CO2 23 (23-27mmol/L) 01/10/19 14:45 POC ABG O2 Sat 96 01/10/19 14:45 Abnormal lab findings: Abnormal Labs 01/10/19 01/10/19 01/10/19 13:36 13:36 13:48 Hgb 10.6 L Hct 32.3 L MCV 83 L MCH 27 L RDW 21.1 H Lymph % (Auto) Lymph # Seg Neutrophils % POC ABG pCO2 POC ABG pO2 Carbon Dioxide Glucose 149 H POC Glucose 157 H Hemoglobin A1c Iron NT-Pro-B Natriuret Pep 3867 H Albumin 3.8 L Vitamin B12 11/01/10/19 01/11/19 14:45 21:57 00:35 Hgb Hct MCV MCH RDW Lymph % (Auto) Lymph # Seg Neutrophils % POC ABG pCO2 33.7 L POC ABG pO2 76 L Carbon Dioxide Glucose POC Glucose 291 H Hemoglobin A1c Iron 44 L NT-Pro-B Natriuret Pep Albumin Vitamin B12 01/11/19 01/11/19 01/11/19 00:35 03:41 03:41 Hgb 10.4 L Hct 31.5 L MCV MCH RDW 21.4 H Lymph % (Auto) 12.8 L Lymph # 0.7 L Seg Neutrophils % 82.9 H POC ABG pCO2 POC ABG pO2 Carbon Dioxide 18 L Glucose 232 H POC Glucose Hemoglobin A1c Iron NT-Pro-B Natriuret Pep Albumin 3.6 L Vitamin B12 1870 H 01/11/19 01/11/19 01/11/19 03:41 07:52 12:01 Hgb Hct MCV MCH RDW Lymph % (Auto) Lymph # Seg Neutrophils % POC ABG pCO2 POC ABG pO2 Carbon Dioxide Glucose POC Glucose 234 H 246 H Hemoglobin A1c 6.4 H Iron NT-Pro-B Natriuret Pep Albumin Vitamin B12 01/11/19 01/11/19 01/12/19 16:36 21:09 07:30 Hgb Hct MCV MCH RDW Lymph % (Auto) Lymph # Seg Neutrophils % POC ABG pCO2 POC ABG pO2 Carbon Dioxide Glucose POC Glucose 263 H 273 H 194 H Hemoglobin A1c Iron NT-Pro-B Natriuret Pep Albumin Vitamin B12 01/12/19 01/12/19 01/12/19 12:02 16:39 21:07 Hgb Hct MCV MCH RDW Lymph % (Auto) Lymph # Seg Neutrophils % POC ABG pCO2 POC ABG pO2 Carbon Dioxide Glucose POC Glucose 282 H 135 H 118 H Hemoglobin A1c Iron NT-Pro-B Natriuret Pep Albumin Vitamin B12 01/13/19 01/13/19 07:51 12:05 Hgb Hct MCV MCH RDW Lymph % (Auto) Lymph # Seg Neutrophils % POC ABG pCO2 POC ABG pO2 Carbon Dioxide Glucose POC Glucose 235 H 202 H Hemoglobin A1c Iron NT-Pro-B Natriuret Pep Albumin Vitamin B12 Chest x-ray: image reviewed Allied health notes reviewed: nursing
--- NOTE | 2019-01-13 14:40 | Progress Note ---
Assessment and Plan - Patient Problems (1) Acute respiratory failure with hypoxia Current Visit: Yes Status: Acute Plan to address problem: COnt IV Levaquin IV Solumedrol and Duonebs rtc and prn Bipap for now Intubation if necessary Improving (2) COPD with exacerbation Current Visit: Yes Status: Acute Plan to address problem: COnt IV Levaquin IV Solumedrol and Duonebs rtc and prn Bipap for now Intubation if necessary Improving (3) Anemia Current Visit: No Status: Acute Plan to address problem: Anemia work up (4) IDDM (insulin dependent diabetes mellitus) Current Visit: Yes Status: Chronic Plan to address problem: Cnt home insulin and coverage M1v---9.4 Insulin increased to 35 units Bid from 28 units Steroid induced Hyperglycemia also contributing. (5) HTN (hypertension) Current Visit: Yes Status: Chronic Qualifiers: Hypertension type: essential hypertension Qualified Code(s): I10 - Essential (primary) hypertension Plan to address problem: Cont antihypertensives (6) HLD (hyperlipidemia) Current Visit: Yes Status: Chronic Qualifiers: Hyperlipidemia type: mixed hyperlipidemia Qualified Code(s): E78.2 - Mixed hyperlipidemia Plan to address problem: Cont statins (7) GERD (gastroesophageal reflux disease) Current Visit: Yes Status: Chronic Qualifiers: Esophagitis presence: without esophagitis Qualified Code(s): K21.9 - Gastro-esophageal reflux disease without esophagitis Plan to address problem: Cont protonix (8) Depression Current Visit: Yes Status: Chronic Qualifiers: Depression Type: unspecified Qualified Code(s): F32.9 - Major depressive disorder, single episode, unspecified Plan to address problem: cont Sertraline (9) DVT prophylaxis Current Visit: Yes Status: Acute Plan to address problem: On Lovenox and GI prophylaxis (10) Discharge planning issues Current Visit: Yes Status: Acute Plan to address problem: patient needs home nebulizer machine. probable discharge tomorrow Subjective Date of service: 01/13/19 Principal diagnosis: Ac. hypoxemic resp failure; Possible EVALI; AE-COPD; Poss. CHF exacerbation Interval history: 79-year-old male with multiple medical problems including insulin-dependent diabetes arthritis, hypertension: Coronary artery disease and history of internal defibrillator comes in for increasing shortness of breath since yesterday. Patient has been wheezing and cough productive of mucoid sputum. Patient has been VAPING since last year instead of cigarettes. No fever or chills. No chest pain. No exacerbating or relieving factors. Patient follows in Counts include [facility] beds at the [facility] for his coronary artery disease and internal defibrillator. Improves with oxygen. Symptomatically better.Still wheezing . Objective - Constitutional Vitals: Vital Signs - 12hr 01/13/19 01/13/19 01/13/19 04:05 04:36 07:39 Temperature 97.3 F L 97.9 F Pulse Rate 52 L 57 L 59 L Pulse Rate [ Anterior Bilateral Throughout] Respiratory 20 18 Rate Respiratory Rate [Anterior Bilateral Throughout] Blood Pressure 115/62 118/55 O2 Sat by Pulse 100 100 Oximetry 01/13/19 01/13/19 01/13/19 08:58 10:00 10:01 Temperature Pulse Rate 69 64 Pulse Rate [ 64 Anterior Bilateral Throughout] Respiratory Rate Respiratory 18 Rate [Anterior Bilateral Throughout] Blood Pressure 111/66 118/54 O2 Sat by Pulse Oximetry 01/13/19 01/13/19 01/13/19 10:02 10:04 10:28 Temperature Pulse Rate 64 Pulse Rate [ Anterior Bilateral Throughout] Respiratory 18 18 Rate Respiratory Rate [Anterior Bilateral Throughout] Blood Pressure 118/54 118/54 O2 Sat by Pulse 98 Oximetry 01/13/19 01/13/19 11:46 11:50 Temperature Pulse Rate Pulse Rate [ Anterior Bilateral Throughout] Respiratory 18 18 Rate Respiratory Rate [Anterior Bilateral Throughout] Blood Pressure 114/59 O2 Sat by Pulse Oximetry General appearance: Present: no acute distress, well-nourished - EENT Eyes: PERRL, EOM intact ENT: hearing intact, clear oral mucosa Ears: bilateral: normal - Neck Neck: supple, normal ROM - Respiratory Respiratory effort: normal Respiratory: bilateral: CTA, rhonchi, wheezing - Breasts Breasts: normal - Cardiovascular Heart rate: 88 Rhythm: regular Heart Sounds: Present: S1 & S2. Absent: gallop, rub Extremities: no ischemia, pulses intact, No edema, normal color, Full ROM - Gastrointestinal General gastrointestinal: Present: soft, non-tender, non-distended, normal bowel sounds - Genitourinary Male genitourinary: normal - Integumentary Integumentary: clear, warm, dry - Musculoskeletal Musculoskeletal: 1, strength equal bilaterally - Neurologic Neurologic: moves all extremities - Psychiatric Psychiatric: memory intact, appropriate mood/affect, intact judgment & insight - Allied health notes Allied health notes reviewed: nursing, case management - Labs CBC & Chem 7: 01/11/19 03:41 01/11/19 03:41 Labs: Abnormal lab results 01/12/19 01/12/19 01/13/19 Range/Units 16:39 21:07 07:51 POC Glucose 135 H 118 H 235 H (70-105) 01/13/19 Range/Units 12:05 POC Glucose 202 H (70-105)
[2019-01-13] MEDS: levoFLOXacin 750 MG TAB PO SCH (21:48)
[2019-01-13] MEDS: PRAVASTATIN 80 MG TAB PO SCH (21:50)
[2019-01-13] MEDS: ENOXAPARIN 40 MG/0.4 ML INJ SUB-Q SCH (21:51)
[2019-01-14] MEDS: methylPREDNISolone Sod Succinate 125 MG/2 ML INJ IV SCH ×2 (05:22→13:33)
[2019-01-14 05:58] LABS: Basophils % (Auto) 0.1 % (0.0-1.8); Hematocrit 32.1 % (35.5-45.6); Hemoglobin 10.4 gm/dl (11.8-15.2); Lymphocytes # (Auto) 0.6 K/mm3 (1.2-5.4); Lymphocytes % (Auto) 5.4 % (13.4-35.0); Mean Corpuscular HGB Conc 32 % (32-34); Mean Corpuscular Volume 85 fl (84-94); Monocytes # (Auto) 0.5 K/mm3 (0.0-0.8); Monocytes % (Auto) 5.1 % (0.0-7.3); Platelet Count 184 K/mm3 (140-440); Red Blood Count 3.78 M/mm3 (3.65-5.03)
[2019-01-14 05:59] LABS: Red Cell Distribution Width 21.9 % (13.2-15.2)
[2019-01-14 06:22] LABS: Alanine Aminotransferase 10 units/L (7-56); Albumin 3.4 g/dL (3.9-5); BUN/Creatinine Ratio 27; Blood Urea Nitrogen 32 mg/dL (9-20); Calcium 9.1 mg/dL (8.4-10.2); Hemolysis Index 0
[2019-01-14] MEDS: IPRATROPIUM/ALBUTEROL SULFATE 3 ML AMPUL.NEB IH SCH (07:08)
[2019-01-14] MEDS: ARFORMOTEROL 15 MCG/2 ML NEBU IH SCH (07:08)
[2019-01-14] MEDS: BUDESONIDE 0.5 MG/2 ML NEBU IH SCH (07:08)
[2019-01-14] MEDS: INSULIN LISPRO 100 UNIT/ML SUB-Q SCH ×2 (08:00→11:24)
[2019-01-14] MEDS: GABAPENTIN 300 MG CAP PO SCH ×2 (08:44→13:33)
[2019-01-14] MEDS: INSULIN NPH/REGULAR 70/30 INJ SUB-Q SCH (08:45)
[2019-01-14] MEDS: SERTRALINE 100 MG TAB PO SCH (09:50)
[2019-01-14] MEDS: PANTOPRAZOLE 40 MG TAB PO SCH (09:50)
[2019-01-14] MEDS: DOXAZOSIN 1 MG TAB PO SCH (09:52)
[2019-01-14] MEDS: LOSARTAN 50 MG TAB PO SCH (09:52)
[2019-01-14] MEDS: carvediloL 25 MG TAB PO SCH (09:52)
[2019-01-14 11:07] VITALS: BP 124/53
--- NOTE | 2019-01-14 13:39 | Discharge Summary ---
Providers - Providers Date of Admission: 01/10/19 14:07 Attending physician: MUSTAPHA ALDRIDGE MD 01/10/19 21:33 Consult to Physician [CONS] Routine Comment: Consulting Provider: ROX ASHBY Physician Instructions: Reason For Exam: COPD exacerbation Primary care physician: STORM ELLIOTT Hospitalization Reason for admission: COPD Condition: Stable Hospital course: 79-year-old male with multiple medical problems including insulin-dependent diabetes arthritis, hypertension: Coronary artery disease and history of internal defibrillator comes in for increasing shortness of breath since yesterday. Patient has been wheezing and cough productive of mucoid sputum. Patient has been VAPING since last year instead of cigarettes. No fever or chills. No chest pain. No exacerbating or relieving factors. Patient follows in [facility] for his coronary artery disease and internal defibrillator. Improves with oxygen. Symptomatically better * Patient was treated with HERIBERTO and LABA with noted improvement. * Call was placed to [employer] control to Reported possible Vaping Associated Lung Injury * Patient was advised on the need to quit smoking and tobacco Acute hypoxemic respiratory failure. Possible Vaping Associated Lung Injury (EVALI) Acute chronic obstructive pulmonary disease exacerbation. Possible acute congestive heart failure exacerbation. Obstructive sleep apnea. Tobacco use disorder. Diabetes Mellitus History of arthritis. History of dementia. Depression Anemia that is normocytic. Mild metabolic acidosis with a serum bicarbonate of 18. Elevated serum BNP. Disposition: [id number] HOME UNDER HOME [facility] Time spent for discharge: 35 mins Core Measure Documentation - Palliative Care Palliative Care/ Comfort Measures: Not Applicable - Core Measures Any of the following diagnoses?: none Exam - Physical Exam Narrative exam: General appearance: Present: no acute distress, well-nourished - EENT Eyes: PERRL, EOM intact ENT: hearing intact, clear oral mucosa Ears: bilateral: normal - Neck Neck: supple, normal ROM - Respiratory Respiratory effort: normal Respiratory: bilateral: CTA, rhonchi, wheezing - Cardiovascular Heart rate: 88 Rhythm: regular Heart Sounds: Present: S1 & S2. Absent: gallop, rub Extremities: no ischemia, pulses intact, No edema, normal color, Full ROM - Gastrointestinal General gastrointestinal: Present: soft, non-tender, non-distended, normal bowel sounds - Genitourinary Male genitourinary: normal - Integumentary Integumentary: clear, warm, dry - Musculoskeletal Musculoskeletal: 1, strength equal bilaterally - Neurologic Neurologic: moves all extremities - Psychiatric Psychiatric: memory intact, appropriate mood/affect, intact judgment & insight - Allied health notes Allied health notes reviewed: nursing, case management - Constitutional Vitals: Temp Pulse Resp BP Pulse Ox 97.5 F L 68 18 124/53 98 01/14/19 11:03 01/14/19 11:03 01/14/19 11:03 01/14/19 11:03 01/14/19 11:03 Plan Activity: advance as tolerated, fall precautions Diet: low fat, low cholesterol Special Instructions: record daily BP diary, record blood sugar diary Follow up with: PRIMARY CARE, [Referring] - 3-5 Days RONNI BAILON MD [Staff Physician] - 7 Days Prescriptions: Ipratropium/Albuterol Sulfate [DUONEB *Not for PRN Use*] 1 ampul IH TID #90 ampul.neb levoFLOXacin [Levaquin TAB] 750 mg PO DAILY@2200 #3 tablet methylPREDNISolone [Medrol 4MG DOSEPAK (21 tabs)] 4 mg PO . DIR #21 tab.ds.pk Insulin NPH/Regular [NovoLIN 70/30] 35 unit SUB-Q BIDDIAB #100 units
--- NOTE | 2019-01-14 15:02 | Progress Note ---
Assessment and Plan Acute hypoxemic respiratory failure. Possible Vaping Associated Lung Injury (EVALI) Acute chronic obstructive pulmonary disease exacerbation. Possible acute congestive heart failure exacerbation. History of obstructive sleep apnea. Tobacco use disorder. History of diabetes. History of arthritis. History of dementia. Anemia that is normocytic. Mild metabolic acidosis with a serum bicarbonate of 18. Elevated serum BNP. - s/p diuretics course - continue NIV qhs for BUSTER - continue supplemental oxygen as needed to keep O2 sat's > 90% - continue bronchodilators (HERIBERTO & LABA) with pulmonary hygiene per RT - continue systemic steroids with slow taper - continue inhaled corticosteroids - complete empiric CAP directed antibiotics for severe COPD exacerbation - PT/OT as tolerated - mobility protocols for pressure ulcer prophylaxis - GI & VTE prophylaxis - tobacco abstinence strongly counseled at bedside - Flu & Pneumovax addressed per protocol - report EVALI per protocol ... discharge planning ongoing .... re-evaluate in am & prn Subjective Date of service: 01/14/19 Principal diagnosis: Ac. hypoxemic resp failure; Possible EVALI; AE-COPD; Poss. CHF exacerbation Interval history: Patient is seen today for: Acute hypoxemic respiratory failure; Possible Vaping Associated Lung Injury (EVALI); Acute chronic obstructive pulmonary disease exacerbation; Possible acute congestive heart failure exacerbation; BUSTER; Tobacco use disorder. Seen and examined at bedside; 24-hour events reviewed; nursing and respiratory care staff consulted; no adverse overnight events reported to me; resting peacefully in bed; doing better / back to baseline Objective Vital Signs - 12hr 01/14/19 01/14/19 01/14/19 03:12 03:43 07:33 Temperature 98.3 F 97.9 F Pulse Rate 68 60 65 Pulse Rate [ Anterior Bilateral Throughout] Pulse Rate [ Radial] Respiratory 18 18 Rate Respiratory Rate [Anterior Bilateral Throughout] Blood Pressure 120/77 114/67 O2 Sat by Pulse 99 99 Oximetry 01/14/19 01/14/19 01/14/19 07:44 08:00 09:07 Temperature Pulse Rate 62 Pulse Rate [ 77 Anterior Bilateral Throughout] Pulse Rate [ 82 Radial] Respiratory 16 Rate Respiratory 18 Rate [Anterior Bilateral Throughout] Blood Pressure O2 Sat by Pulse 97 Oximetry 01/14/19 01/14/19 01/14/19 09:52 10:50 11:03 Temperature 97.5 F L Pulse Rate 74 73 68 Pulse Rate [ Anterior Bilateral Throughout] Pulse Rate [ Radial] Respiratory 18 Rate Respiratory Rate [Anterior Bilateral Throughout] Blood Pressure 112/54 112/54 124/53 O2 Sat by Pulse 97 98 Oximetry Constitutional: no acute distress, other (elderly looking AAM, normocephalic with mildly increased resp effort at rest) Eyes: non-icteric ENT: oropharynx moist Neck: supple, no lymphadenopathy, no JVD Effort: mildly labored Ascultation: Bilateral: diminished breath sounds, rhonchi Percussion: Bilateral: not dull Cardiovascular: regular rate and rhythm Gastrointestinal: normoactive bowel sounds, soft, non-tender, non-distended Integumentary: normal Extremities: no cyanosis, no edema, pulses normal, no ischemia or petechiae Neurologic: normal mental status, non-focal exam, pupils equal and round, CN II- XII normal, motor strength normal and Psychiatric: mood appropriate, affect normal CBC and BMP: 01/14/19 05:02 01/14/19 05:02 ABG, PT/INR, D-dimer: ABG POC ABG pH 7.431 (7.35-7.45) 01/10/19 14:45 POC ABG pCO2 33.7 (35-45) L 01/10/19 14:45 POC ABG pO2 76 (80-105) L 01/10/19 14:45 POC ABG HCO3 22.4 (22-26 mml/L) 01/10/19 14:45 POC ABG Total CO2 23 (23-27mmol/L) 01/10/19 14:45 POC ABG O2 Sat 96 01/10/19 14:45 Abnormal lab findings: Abnormal Labs 01/10/19 01/10/19 01/10/19 13:36 13:36 13:48 Hgb 10.6 L Hct 32.3 L MCV 83 L MCH 27 L RDW 21.1 H Lymph % (Auto) Lymph # Seg Neutrophils % Seg Neutrophils # POC ABG pCO2 POC ABG pO2 Sodium Carbon Dioxide BUN Glucose 149 H POC Glucose 157 H Hemoglobin A1c Iron NT-Pro-B Natriuret Pep 3867 H Total Protein Albumin 3.8 L Vitamin B12 01/10/19 01/10/19 01/11/19 14:45 21:57 00:35 Hgb Hct MCV MCH RDW Lymph % (Auto) Lymph # Seg Neutrophils % Seg Neutrophils # POC ABG pCO2 33.7 L POC ABG pO2 76 L Sodium Carbon Dioxide BUN Glucose POC Glucose 291 H Hemoglobin A1c Iron 44 L NT-Pro-B Natriuret Pep Total Protein Albumin Vitamin B12 01/11/19 01/11/19 01/11/19 00:35 03:41 03:41 Hgb 10.4 L Hct 31.5 L MCV MCH RDW 21.4 H Lymph % (Auto) 12.8 L Lymph # 0.7 L Seg Neutrophils % 82.9 H Seg Neutrophils # POC ABG pCO2 POC ABG pO2 Sodium Carbon Dioxide 18 L BUN Glucose 232 H POC Glucose Hemoglobin A1c Iron NT-Pro-B Natriuret Pep Total Protein Albumin 3.6 L Vitamin B12 1870 H 01/11/19 01/11/19 01/11/19 03:41 07:52 12:01 Hgb Hct MCV MCH RDW Lymph % (Auto) Lymph # Seg Neutrophils % Seg Neutrophils # POC ABG pCO2 POC ABG pO2 Sodium Carbon Dioxide BUN Glucose POC Glucose 234 H 246 H Hemoglobin A1c 6.4 H Iron NT-Pro-B Natriuret Pep Total Protein Albumin Vitamin B12 01/11/19 01/11/19 01/12/19 16:36 21:09 07:30 Hgb Hct MCV MCH RDW Lymph % (Auto) Lymph # Seg Neutrophils % Seg Neutrophils # POC ABG pCO2 POC ABG pO2 Sodium Carbon Dioxide BUN Glucose POC Glucose 263 H 273 H 194 H Hemoglobin A1c Iron NT-Pro-B Natriuret Pep Total Protein Albumin Vitamin B12 01/12/19 01/12/19 01/12/19 12:02 16:39 21:07 Hgb Hct MCV MCH RDW Lymph % (Auto) Lymph # Seg Neutrophils % Seg Neutrophils # POC ABG pCO2 POC ABG pO2 Sodium Carbon Dioxide BUN Glucose POC Glucose 282 H 135 H 118 H Hemoglobin A1c Iron NT-Pro-B Natriuret Pep Total Protein Albumin Vitamin B12 01/13/19 01/13/19 01/13/19 07:51 12:05 16:20 Hgb Hct MCV MCH RDW Lymph % (Auto) Lymph # Seg Neutrophils % Seg Neutrophils # POC ABG pCO2 POC ABG pO2 Sodium Carbon Dioxide BUN Glucose POC Glucose 235 H 202 H 186 H Hemoglobin A1c Iron NT-Pro-B Natriuret Pep Total Protein Albumin Vitamin B12 01/13/19 01/14/19 01/14/19 20:44 05:02 05:02 Hgb 10.4 L Hct 32.1 L MCV MCH RDW 21.9 H Lymph % (Auto) 5.4 L Lymph # 0.6 L Seg Neutrophils % 89.4 H Seg Neutrophils # 9.5 H POC ABG pCO2 POC ABG pO2 Sodium 136 L Carbon Dioxide BUN 32 H Glucose 147 H POC Glucose 196 H Hemoglobin A1c Iron NT-Pro-B Natriuret Pep Total Protein 6.1 L Albumin 3.4 L Vitamin B12 01/14/19 01/14/19 07:46 11:14 Hgb Hct MCV MCH RDW Lymph % (Auto) Lymph # Seg Neutrophils % Seg Neutrophils # POC ABG pCO2 POC ABG pO2 Sodium Carbon Dioxide BUN Glucose POC Glucose 171 H 274 H Hemoglobin A1c Iron NT-Pro-B Natriuret Pep Total Protein Albumin Vitamin B12 Allied health notes reviewed: nursing
== END 2019-01-14 15:59 | disposition home health service (06) | DRG 189 ==
LOC: ED 13:07 → 4A 14:07
PROVIDERS: ADMIT Internal Medicine; ATTEND Internal Medicine
PROC: 4A033R1 Measurement of Arterial Saturation, Peripheral, Percutaneous Approach (ICD-10-PCS; principal; 2019-01-10)
PROC: 5A09357 Assistance with Respiratory Ventilation, Less than 24 Consecutive Hours, Continuous Positive Airway Pressure (ICD-10-PCS; 2019-01-10)
PROC: 5A09357 Assistance with Respiratory Ventilation, Less than 24 Consecutive Hours, Continuous Positive Airway Pressure (ICD-10-PCS; 2019-01-11)
PROC: 5A09357 Assistance with Respiratory Ventilation, Less than 24 Consecutive Hours, Continuous Positive Airway Pressure (ICD-10-PCS; 2019-01-12)
DX: J96.01 Acute respiratory failure with hypoxia (principal); J44.1 Chronic obstructive pulmonary disease with (acute) exacerbation; E87.2 Acidosis; S27.399A Other injuries of lung, unspecified, initial encounter; D64.9 Anemia, unspecified; E11.8 Type 2 diabetes mellitus with unspecified complications; K21.9 Gastro-esophageal reflux disease without esophagitis; F32.9 Major depressive disorder, single episode, unspecified; G47.33 Obstructive sleep apnea (adult) (pediatric); F17.200 Nicotine dependence, unspecified, uncomplicated; M19.90 Unspecified osteoarthritis, unspecified site; F03.90 Unspecified dementia, unspecified severity, without behavioral disturbance, psychotic disturbance, mood disturbance, and anxiety; I25.10 Atherosclerotic heart disease of native coronary artery without angina pectoris; X58.XXXA Exposure to other specified factors, initial encounter; I11.0 Hypertensive heart disease with heart failure; I50.9 Heart failure, unspecified; E78.2 Mixed hyperlipidemia; Z79.899 Other long term (current) drug therapy; I25.2 Old myocardial infarction; Z79.4 Long term (current) use of insulin; Z95.810 Presence of automatic (implantable) cardiac defibrillator; Y93.89 Activity, other specified; Y92.89 Other specified places as the place of occurrence of the external cause; Y99.8 Other external cause status; Z95.5 Presence of coronary angioplasty implant and graft; Z82.49 Family history of ischemic heart disease and other diseases of the circulatory system
CPT/HCPCS: 36415; 36600; 71045; 80053; 81001; 82140; 82607; 82747; 82803; 82962; 83036; 83550; 83880; 84484; 85025; 85027; 87040; 93005; 93010; 94640; 94644; 94660; 96365; G0378; A9270-GY; J1650; J1815; J1940; J1956; J2930

== ENCOUNTER 2019-04-11 04:52 | Emergency (ER) | payer MEDICARE, OTHER ==
--- NOTE | 2019-04-11 05:21 | Event Note ---
ED Screening Note Date of service: 04/11/19 Time: 05:20 ED Screening Note: This initial assessment/diagnostic orders/clinical plan/treatment(s) is/are subject to change based on patients health status, clinical progression and re- assessment by fellow clinical providers in the ED. Further treatment and workup at subsequent clinical providers discretion. Patient/guardian urged not to elope from the ED as their condition may be serious if not clinically assessed and managed. Patient states he has a history of using Juul vaping cigarettes and has a history of pneumonia several years ago and states that he is became short of breath yesterday and his shortness of breath reminds him of the time he had pneumonia. Patient has a nonproductive cough with shortness of breath. On physical exam the patient has diffuse wheezing. Initial orders include: Albuterol Atrovent with Solu-Medrol Basic laboratory studies including chemistries and CBC Chest x-ray
[2019-04-11] MEDS ORDERED: methylPREDNISolone Sod Succinate 125 MG/2 ML INJ IV ONE (05:22)
[2019-04-11] MEDS ORDERED: IPRATROPIUM 0.02% NEBU 2.5 ML IH ONE (05:22)
[2019-04-11] MEDS ORDERED: ALBUTEROL 2.5 MG/3 ML NEBU IH ONE (05:22)
[2019-04-11 05:45] LABS: Basophils % (Auto) 0.5 % (0.0-1.8); Eosinophils # (Auto) 0.4 K/mm3 (0.0-0.4); Eosinophils % (Auto) 4.3 % (0.0-4.3); Hematocrit 34.9 % (35.5-45.6); Hemoglobin 11.3 gm/dl (11.8-15.2); Lymphocytes # (Auto) 1.3 K/mm3 (1.2-5.4); Lymphocytes % (Auto) 12.4 % (13.4-35.0); Mean Corpuscular HGB Conc 32 % (32-34); Mean Corpuscular Volume 83 fl (84-94); Monocytes % (Auto) 9.8 % (0.0-7.3); Platelet Count 161 K/mm3 (140-440); Red Blood Count 4.23 M/mm3 (3.65-5.03); Red Cell Distribution Width 19.3 % (13.2-15.2)
--- NOTE | 2019-04-11 05:46 | XRay Report ---
CHEST 1 VIEW INDICATION: dyspnea. COMPARISON: 01/10/2019 FINDINGS: Support devices: Cardiac lead is unchanged. Heart: Normal. Lungs/Pleura: There are mild bibasilar interstitial opacities. No significant effusion, no pneumothor ax. IMPRESSION: 1. Mild nonspecific bibasilar interstitial opacities. Signer Name: Oren Yeboah MD Signed: 04/11/2019 5:41 AM Workstation Name: [id number]
[2019-04-11 06:04] LABS: BUN/Creatinine Ratio 10; Blood Urea Nitrogen 10 mg/dL (9-20); Calcium 9.2 mg/dL (8.4-10.2); Hemolysis Index 11
--- NOTE | 2019-04-11 06:06 | Emergency Department Report ---
ED General Adult HPI - General Chief complaint: Dyspnea/Respdistress Stated complaint: SHORTNESS OF BREATH Time Seen by Provider: 04/11/19 05:59 Source: patient, EMS ( EMS documentation not available at time of chart dictation ), RN notes reviewed, old records reviewed Mode of arrival: Stretcher Limitations: No Limitations - History of Present Illness Initial comments: Primary care doctor: Dr Milla Bella Cardiology: Dr Germán Denson Pulmonology: Patient does not have a director instrumentation Past medical history: Insulin-dependent diabetes, arthritis, hypertension, heart disease, ICD in situ, COPD, not oxygen dependent, prior history of tobacco use, and electronic cigarette use Patient is a 79-year-old gentleman presenting to the ER with a complaint of azra rtness of breath, painless, dry cough, and intermittent mucus production. Patient denies physical pain. He denies DVT and pulmonary embolism risk factors. He is given albuterol, Atrovent, steroids, which improved his symptoms. He is currently finishing up his albuterol nebulizer at the moment. There is no complaint of headache, neck pain, chest pain, abdominal pain, urinary symptoms, and he denies focal extremity weakness and no numbness -: Gradual Consistency: constant Improves with: medication, rest Worsens with: movement - Related Data Home Medications Medication Instructions Recorded Confirmed Last Taken Gabapentin 300 mg PO TID 01/09/13 08/30/18 01/09/13 06:00 300 mg Sertraline [Zoloft] 100 mg PO QDAY 01/09/13 08/30/18 01/09/13 06:00 100 mg Simvastatin 40 mg PO QHS 01/09/13 08/30/18 01/09/13 06:00 40 mg carvediloL [Coreg] 25 mg PO BID 01/09/13 08/30/18 01/09/13 06:00 25 mg Doxazosin Mesylate [Cardura] 2 mg PO BID 08/30/18 08/30/18 Unknown Losartan [Cozaar] 100 mg PO QDAY 08/30/18 08/30/18 Unknown Naltrexone HCl 50 mg PO QDAY 08/30/18 08/30/18 Unknown Previous Rx's Medication Instructions Recorded Last Taken Type Pantoprazole [Protonix TAB] 40 mg PO QDAY #30 tablet 09/02/18 Unknown Rx Insulin NPH/Regular [NovoLIN 70/30] 35 unit SUB-Q BIDDIAB #100 units 01/14/19 Unknown Rx Ipratropium/Albuterol Sulfate 1 ampul IH TID #90 ampul.neb 01/14/19 Unknown Rx [DUONEB *Not for PRN Use*] levoFLOXacin [Levaquin TAB] 750 mg PO DAILY@2200 #3 tablet 01/14/19 Unknown Rx methylPREDNISolone [Medrol 4MG 4 mg PO . DIR #21 tab.ds.pk 01/14/19 Unknown Rx DOSEPAK (21 tabs)] Albuterol Sulfate [Proair 90 mcg IH Q4HR PRN #2 aer.pow.ba 04/11/19 Unknown Rx Respiclick] DOXYCYCLINE Hyclate [Vibramycin] 100 mg PO Q12HR #9 capsule 04/11/19 Unknown Rx Ipratropium (Nf) [Atrovent] 2 puff IH Q6HR PRN #1 inha 04/11/19 Unknown Rx predniSONE [Deltasone] 40 mg PO QDAY #8 tab 04/11/19 Unknown Rx Allergies Allergy/AdvReac Type Severity Reaction Status Date / Time No Known Allergies Allergy Verified 01/09/13 07:38 ED Review of Systems ROS: Stated complaint: SHORTNESS OF BREATH Other details as noted in HPI Constitutional: malaise. denies: fever ENT: congestion Respiratory: cough, shortness of breath, SOB with exertion, SOB at rest, wheezing Cardiovascular: denies: syncope Gastrointestinal: denies: abdominal pain Genitourinary: denies: dysuria Musculoskeletal: denies: back pain Neurological: weakness ED Past Medical Hx - Past Medical History Hx Hypertension: Yes (high cholesterol) Hx CVA: No Hx Heart Attack/AMI: Yes (2003) Hx Congestive Heart Failure: No Hx Diabetes: Yes Hx Pulmonary Embolism: No Hx GERD: No Hx Liver Disease: No Hx Renal Disease: No Hx Sickle Cell Disease: No Hx Arthritis: Yes Hx Headaches / Migraines: No Hx Seizures: No Hx Kidney Stones: No Hx Psychiatric Treatment: No Hx Asthma: No Hx COPD: Yes Hx Tuberculosis: No Hx Dementia: Yes Hx HIV: No - Surgical History Hx Coronary Stent: Yes Hx Internal Defibrillator: Yes - Social History Smoking Status: Former Smoker Substance Use Type: Alcohol - Medications Home Medications: Home Medications Medication Instructions Recorded Confirmed Last Taken Type Gabapentin 300 mg PO TID 01/09/13 08/30/18 01/09/13 06:00 History 300 mg Sertraline [Zoloft] 100 mg PO QDAY 01/09/13 08/30/18 01/09/13 06:00 History 100 mg Simvastatin 40 mg PO QHS 01/09/13 08/30/18 01/09/13 06:00 History 40 mg carvediloL [Coreg] 25 mg PO BID 01/09/13 08/30/18 01/09/13 06:00 History 25 mg Doxazosin Mesylate [Cardura] 2 mg PO BID 08/30/18 08/30/18 Unknown History Losartan [Cozaar] 100 mg PO QDAY 08/30/18 08/30/18 Unknown History Naltrexone HCl 50 mg PO QDAY 08/30/18 08/30/18 Unknown History Pantoprazole [Protonix TAB] 40 mg PO QDAY #30 tablet 09/02/18 Unknown Rx Insulin NPH/Regular [NovoLIN 70/30] 35 unit SUB-Q BIDDIAB #100 units 01/14/19 Unknown Rx Ipratropium/Albuterol Sulfate 1 ampul IH TID #90 ampul.neb 01/14/19 Unknown Rx [DUONEB *Not for PRN Use*] levoFLOXacin [Levaquin TAB] 750 mg PO DAILY@2200 #3 tablet 01/14/19 Unknown Rx methylPREDNISolone [Medrol 4MG 4 mg PO . DIR #21 tab.ds.pk 01/14/19 Unknown Rx DOSEPAK (21 tabs)] Albuterol Sulfate [Proair 90 mcg IH Q4HR PRN #2 aer.pow.ba 04/11/19 Unknown Rx Respiclick] DOXYCYCLINE Hyclate [Vibramycin] 100 mg PO Q12HR #9 capsule 04/11/19 Unknown Rx Ipratropium (Nf) [Atrovent] 2 puff IH Q6HR PRN #1 inha 04/11/19 Unknown Rx predniSONE [Deltasone] 40 mg PO QDAY #8 tab 04/11/19 Unknown Rx ED Physical Exam - General Limitations: No Limitations General appearance: alert, in no apparent distress - Head Head exam: Present: atraumatic, normocephalic - Eye Eye exam: Present: normal appearance, EOMI. Absent: nystagmus - ENT ENT exam: Present: normal exam, normal orophraynx, mucous membranes moist, normal external ear exam - Neck Neck exam: Present: normal inspection, full ROM. Absent: tenderness - Respiratory Respiratory exam: Present: wheezes, rhonchi. Absent: respiratory distress - Cardiovascular Cardiovascular Exam: Present: regular rate, normal rhythm, normal heart sounds. Absent: bradycardia, tachycardia, irregular rhythm, systolic murmur, diastolic murmur, rubs, gallop - GI/Abdominal GI/Abdominal exam: Present: soft. Absent: distended, tenderness, guarding, rebound, rigid, pulsatile mass - Rectal Rectal exam: Present: deferred - Extremities Exam Extremities exam: Present: normal inspection, full ROM, other (2+ pulses noted in the bilateral upper and lower extremities. There is no palpable cord. negative Homans sign. Muscular compartments are soft. The pelvis is stable.). Absent: calf tenderness - Back Exam Back exam: Present: normal inspection, full ROM. Absent: tenderness, CVA tenderness (R), CVA tenderness (L), paraspinal tenderness, vertebral tenderness - Neurological Exam Neurological exam: Present: alert, other (There is no facial droop. The tongue is midline. Extraocular movements are intact bilaterally. There is 5 out of 5 strength in bilateral upper and lower extremities. Sensation is intact to light touch bilateral upper and lower extremities. ). Absent: motor sensory deficit - Psychiatric Psychiatric exam: Present: normal affect, normal mood - Skin Skin exam: Present: warm, dry, intact, normal color. Absent: rash ED Course Vital Signs 04/11/19 04/11/19 04/11/19 04:57 05:30 05:48 Temperature Pulse Rate 98 H 93 H Pulse Rate [ 94 H Bilateral] Respiratory 22 24 Rate Respiratory 29 H Rate [Bilateral ] Blood Pressure 162/85 141/84 Blood Pressure [Right] O2 Sat by Pulse 98 100 Oximetry 04/11/19 04/11/19 04/11/19 05:50 06:16 06:30 Temperature 98.0 F Pulse Rate 93 H 94 H 94 H Pulse Rate [ Bilateral] Respiratory 24 22 25 H Rate Respiratory Rate [Bilateral ] Blood Pressure 147/69 147/69 Blood Pressure 141/84 [Right] O2 Sat by Pulse 100 100 100 Oximetry 04/11/19 07:35 Temperature Pulse Rate 92 H Pulse Rate [ Bilateral] Respiratory 16 Rate Respiratory Rate [Bilateral ] Blood Pressure Blood Pressure [Right] O2 Sat by Pulse 96 Oximetry - Reevaluation(s) Reevaluation #1: 04/11/19 06:34 Differential diagnosis, including but not limited to: COPD exacerbation, bronchitis, pneumonia Assessment and plan: 79-year-old gentleman who endorses no DVT or pulmonary embolism risk factors, who has a history of COPD, who is presenting with a probable COPD exacerbation. He is afebrile with reassuring vital signs, with the exception of tachypnea. He is currently being treated with albuterol, Atrovent and steroids. Upon my initial evaluation, he is resting comfortably in his stretcher, and endorses improvement upon initial arrival of symptoms. His proBNP is chronically elevated, likely secondary to chronic COPD, and presumes pulmonary hypertension. We will allow him to complete his nebulizer therapy, and reassess. X-ray the chest is reviewed and appreciated, this is likely a chronic finding. Reevaluation #2: 04/11/19 09:54 Patient is reassessed multiple times. He is sleeping comfortably. He is wheezing has resolved. Upon waking up the patient, he states that he feels improved. He endorses readiness for discharge. Patient observed for hours without clinical decompensation, and has improved substantially. ED Medical Decision Making - Lab Data Result diagrams: 04/11/19 05:35 04/11/19 05:35 Vital Signs 04/11/19 04/11/19 04/11/19 04:57 05:48 05:50 Temperature 98.0 F Pulse Rate 98 H 93 H Pulse Rate [ 94 H Bilateral] Respiratory 22 24 Rate Respiratory 29 H Rate [Bilateral ] Blood Pressure 162/85 Blood Pressure 141/84 [Right] O2 Sat by Pulse 98 100 Oximetry Lab Results 04/11/19 04/11/19 Range/Units 05:35 05:35 WBC 10.3 (4.5-11.0) K/mm3 RBC 4.23 (3.65-5.03) M/mm3 Hgb 11.3 L (11.8-15.2) gm/dl Hct 34.9 L (35.5-45.6) % MCV 83 L (84-94) fl MCH 27 L (28-32) pg MCHC 32 (32-34) % RDW 19.3 H (13.2-15.2) % Plt Count 161 (140-440) K/mm3 Lymph % (Auto) 12.4 L (13.4-35.0) % Stephenson % (Auto) 9.8 H (0.0-7.3) % Eos % (Auto) 4.3 (0.0-4.3) % Baso % (Auto) 0.5 (0.0-1.8) % Lymph # 1.3 (1.2-5.4) K/mm3 Stephenson # 1.0 H (0.0-0.8) K/mm3 Eos # 0.4 (0.0-0.4) K/mm3 Baso # 0.0 (0.0-0.1) K/mm3 Seg Neutrophils % 73.0 H (40.0-70.0) % Seg Neutrophils # 7.5 (1.8-7.7) K/mm3 Sodium 141 (137-145) mmol/L Potassium 4.1 (3.6-5.0) mmol/L Chloride 104.3 (98-107) mmol/L Carbon Dioxide 24 (22-30) mmol/L Anion Gap 17 mmol/L BUN 10 (9-20) mg/dL Creatinine 1.0 (0.8-1.5) mg/dL Estimated GFR > 60 ml/min BUN/Creatinine Ratio 10 % Glucose 133 H (75-100) mg/dL Calcium 9.2 (8.4-10.2) mg/dL - EKG Data -: EKG Interpreted by Nc EKG shows normal: sinus rhythm Rate: normal - EKG Data When compared to previous EKG there are: no significant change 04/11/19 06:35 This is a sinus rhythm, 97 bpm, there is a leftward axis deviation, there is poor R wave progression, QTC is 500 ms, the QTc is 395 ms, there is borderline left bundle branch block morphology versus interventricular conduction delay, premature ventricular contractions. The EKG is abnormal. There is no endorsement of chest pain. It is not consistent with a STEMI. It appears to be grossly unchanged from prior EKG from December 2018. - Radiology Data Radiology results: report reviewed, image reviewed Print Report Referring Physician: PATRICIA MCBRIDE Patient Name: LEW WADDELL Date of : 1940 Sex: Male Report Date: 2019-04-11 Report Status: Finalized Findings [facility] [address] [place] [address] XRay Report Signed Patient: LEW WADDELL MR#: [id number] : 1940 Acct:[id number] Age/Sex: 79 / M ADM Date: 04/11/19 Loc: ED Attending Dr: Ordering Physician: PATRICIA MCBRIDE MD Date of Service: 04/11/19 Procedure(s): XR chest 1V ap Accession Number(s): [id number] cc: PATRICIA MCBRIDE MD Fluoro Time In Minutes: CHEST 1 VIEW INDICATION: dyspnea. COMPARISON: 01/10/2019 FINDINGS: Support devices: Cardiac lead is unchanged. Heart: Normal. Lungs/Pleura: There are mild bibasilar interstitial opacities. No significant effusion, no pneumothorax. IMPRESSION: 1. Mild nonspecific bibasilar interstitial opacities. Signer Name: Oren Yeboah MD Signed: 04/11/2019 5:41 AM Workstation Name: [id number] Transcribed By: LIO Dictated By: Oren Yeboah MD Electronically Authenticated By: Oren Yeboah MD Signed Date/Time: 04/11/19540 DD/ 0 TD/TT: Critical care attestation.: If time is entered above; I have spent that time in minutes in the direct care of this critically ill patient, excluding procedure time. ED Disposition Clinical Impression: COPD with exacerbation Disposition: DC-01 TO HOME OR SELFCARE Is pt being admited?: No Does the pt Need Aspirin: No Condition: Stable Instructions: Chronic Obstructive Pulmonary Disease (ED) Additional Instructions: Take the medications as prescribed and directed. Avoid consumption of smoke products and exposure to smoke products. Take the antibiotics as directed, and avoid alcohol consumption. Follow-up with your primary care doctor or director instrumentation in 2 to 4 days for repeat checkup and/or evaluation. Return to the emergency room right away with new, worsened or different symptoms, or symptoms not present on the initial emergency room evaluation. Referrals: JONATHAN MUSTAFA MD [Staff Physician] - 3-5 Days RONNI BAILON MD [Staff Physician] - 3-5 Days PANCHO LIANG MD [Staff Physician] - 3-5 Days
[2019-04-11] MEDS ORDERED: DOXYCYCLINE 100 MG CAPSULE PO ONE (09:58)
[2019-04-11 10:43] VITALS: BP 156/89
== END 2019-04-11 10:19 | disposition home or self-care (01) ==
LOC: ED 04:52
DX: J44.1 Chronic obstructive pulmonary disease with (acute) exacerbation (principal); E78.00 Pure hypercholesterolemia, unspecified; I10 Essential (primary) hypertension; E11.9 Type 2 diabetes mellitus without complications; M19.90 Unspecified osteoarthritis, unspecified site; F03.90 Unspecified dementia, unspecified severity, without behavioral disturbance, psychotic disturbance, mood disturbance, and anxiety; Z87.891 Personal history of nicotine dependence; Z95.5 Presence of coronary angioplasty implant and graft; Z79.899 Other long term (current) drug therapy
CPT/HCPCS: 36415; 71045; 80048; 82550; 83735; 83880; 85025; 93005; 93010; 94644; 96374; 99285; J2930

== ENCOUNTER 2020-08-04 09:01 | Emergency (ER) | payer MEDICARE, OTHER ==
[2020-08-04] MEDS ORDERED: IPRATROPIUM/ALBUTEROL SULFATE 3 ML AMPUL.NEB IH ONE (09:29)
[2020-08-04] MEDS ORDERED: FUROSEMIDE 40 MG/4 ML INJ IV ONE (09:30)
--- NOTE | 2020-08-04 09:34 | Emergency Department Report ---
ED Shortness of Breath HPI - General Chief Complaint: Dyspnea/Respdistress Stated Complaint: SOB, FEET SWOLLEN, UPSET STOMACH Time Seen by Provider: 08/04/20 09:29 Source: patient Mode of arrival: Ambulatory Limitations: No Limitations - History of Present Illness Initial Comments: Chief complaint shortness of breath, feet swelling HPI: This is a 80-year-old male with a history of CHF ejection fraction 20 to 25%, COPD, hypertension, diabetes mellitus who presents with shortness of breath and bilateral feet swelling. Feet swelling for the past 3 days. He has been on a low-sodium diet. No change in furosemide dose. Mild shortness of breath. No ticed mostly with deep inspiration. He denies fever, cough, wheeze, chest pain. Gradual onset of symptoms. He has an AICD in place. Personal ethnographic materials conservator is Dr. Anand PCP Dr. Naqvi Patient was able to drive himself by private auto to the emergency department. Patient had mild headache this morning which is resolved spontaneously. He felt as if he may have eaten something bad last night. His stomach was sour. He had one episode of vomiting this morning. MD Complaint: shortness of breath -: Gradual, days(s) (1 day shortness of breath, 3 days feet swelling) Severity: mild Consistency: constant Improves With: rest Worsens With: other (Deep inspiration) Known History Of: COPD, congestive heart failure Associated Symptoms: denies other symptoms - Related Data Home Medications Medication Instructions Recorded Confirmed Last Taken Gabapentin 300 mg PO TID 01/09/13 08/04/20 08/03/20 Sertraline [Zoloft] 100 mg PO QDAY 01/09/13 08/04/20 08/03/20 Simvastatin 40 mg PO QHS 01/09/13 08/04/20 08/03/20 Aspirin [Adult Aspirin] 81 mg PO DAILY 04/25/19 08/04/20 08/03/20 Insulin NPH/Regular [NovoLIN 70/30] 25 unit SUB-Q BIDDIAB 04/25/19 08/04/20 08/03/20 Previous Rx's Medication Instructions Recorded Last Taken Type Ipratropium/Albuterol Sulfate 1 ampul IH TID #90 ampul.neb 01/14/19 08/03/20 Rx [DUONEB *Not for PRN Use*] Albuterol Sulfate [Proair 90 mcg IH Q4HR PRN #2 aer.pow.ba 04/11/19 08/03/20 Rx Respiclick] Ipratropium (Nf) [Atrovent HFA 2 puff IH Q6HR PRN #1 inha 04/11/19 08/03/20 Rx 17MCG/PUFF] Furosemide [Lasix TAB] 40 mg PO BID #60 tablet 04/27/19 08/03/20 Rx Potassium Chloride [K-Dur] 20 meq PO DAILY #30 tab 04/27/19 08/03/20 Rx carvediloL [Coreg] 3.125 mg PO BID #60 tablet 04/27/19 08/03/20 Rx Allergies Allergy/AdvReac Type Severity Reaction Status Date / Time No Known Allergies Allergy Verified 08/04/20 10:02 ED Review of Systems ROS: Stated complaint: SOB, FEET SWOLLEN, UPSET STOMACH Other details as noted in HPI Comment: All other systems reviewed and negative Constitutional: denies: fever, malaise Respiratory: shortness of breath Gastrointestinal: nausea, vomiting, other (1 episode of nausea vomiting,) Neurological: headache ED Past Medical Hx - Past Medical History Previous Medical History?: Yes Hx Hypertension: Yes (high cholesterol) Hx CVA: No Hx Heart Attack/AMI: Yes (2003) Hx Congestive Heart Failure: No Hx Diabetes: Yes Hx Pulmonary Embolism: No Hx GERD: No Hx Liver Disease: No Hx Renal Disease: No Hx Sickle Cell Disease: No Hx Arthritis: Yes Hx Headaches / Migraines: No Hx Seizures: No Hx Kidney Stones: No Hx Psychiatric Treatment: No Hx Asthma: No Hx COPD: Yes Hx Tuberculosis: No Hx Dementia: Yes Hx HIV: No - Surgical History Past Surgical History?: Yes Hx Coronary Stent: Yes Hx Internal Defibrillator: Yes - Social History Smoking Status: Former Smoker - Medications Home Medications: Home Medications Medication Instructions Recorded Confirmed Last Taken Type Gabapentin 300 mg PO TID 01/09/13 08/04/20 08/03/20 History Sertraline [Zoloft] 100 mg PO QDAY 01/09/13 08/04/20 08/03/20 History Simvastatin 40 mg PO QHS 01/09/13 08/04/20 08/03/20 History Ipratropium/Albuterol Sulfate 1 ampul IH TID #90 ampul.neb 01/14/19 08/04/20 08/03/20 Rx [DUONEB *Not for PRN Use*] Albuterol Sulfate [Proair 90 mcg IH Q4HR PRN #2 aer.pow.ba 04/11/19 08/04/20 08/03/20 Rx Respiclick] Ipratropium (Nf) [Atrovent HFA 2 puff IH Q6HR PRN #1 inha 04/11/19 08/04/20 08/03/20 Rx 17MCG/PUFF] Aspirin [Adult Aspirin] 81 mg PO DAILY 04/25/19 08/04/20 08/03/20 History Insulin NPH/Regular [NovoLIN 70/30] 25 unit SUB-Q BIDDIAB 04/25/19 08/04/20 08/03/20 History Furosemide [Lasix TAB] 40 mg PO BID #60 tablet 04/27/19 08/04/20 08/03/20 Rx Potassium Chloride [K-Dur] 20 meq PO DAILY #30 tab 04/27/19 08/04/20 08/03/20 Rx carvediloL [Coreg] 3.125 mg PO BID #60 tablet 04/27/19 08/04/20 08/03/20 Rx ED Physical Exam - General Limitations: No Limitations General appearance: alert, in no apparent distress, other (Appears comfortable no respiratory distress speaking full word sentences comfortably) - Head Head exam: Present: atraumatic, normocephalic - Eye Eye exam: Present: normal appearance - ENT ENT exam: Present: mucous membranes moist - Neck Neck exam: Present: normal inspection, full ROM - Respiratory Respiratory exam: Present: normal lung sounds bilaterally. Absent: respiratory distress, wheezes, rales, rhonchi - Cardiovascular Cardiovascular Exam: Present: regular rate, normal rhythm, normal heart sounds. Absent: systolic murmur, diastolic murmur, rubs, gallop - GI/Abdominal GI/Abdominal exam: Present: soft, normal bowel sounds. Absent: distended, tenderness, guarding, rebound - Rectal Rectal exam: Present: deferred - Extremities Exam Extremities exam: Present: pedal edema, other (1+ pitting edema from mid tibia to feet bilaterally) - Back Exam Back exam: Present: normal inspection - Neurological Exam Neurological exam: Present: alert, oriented X3 - Psychiatric Psychiatric exam: Present: normal affect, normal mood - Skin Skin exam: Present: warm, dry, intact, normal color. Absent: rash ED Course Vital Signs 08/04/20 08/04/20 08/04/20 09:11 09:45 10:01 Temperature 97.5 F L Pulse Rate 92 H 84 81 Pulse Rate [ Anterior Bilateral Throughout] Respiratory 16 28 H 20 Rate Respiratory Rate [Anterior Bilateral Throughout] Blood Pressure 136/85 129/90 O2 Sat by Pulse 100 100 100 Oximetry 08/04/20 10:50 Temperature Pulse Rate Pulse Rate [ 81 Anterior Bilateral Throughout] Respiratory Rate Respiratory 20 Rate [Anterior Bilateral Throughout] Blood Pressure O2 Sat by Pulse Oximetry ED Medical Decision Making - Lab Data Result diagrams: 08/04/20 09:30 08/04/20 09:30 - EKG Data -: EKG Interpreted by Me - EKG Data 08/04/20 09:54 EKG obtained 0948 EKG interpreted by me Normal sinus rhythm rate 85 bpm abnormal axis PVCs present nonischemic T wave pattern no ST elevation left bundle branch block EKG is unchanged from 01/14/2020 - Radiology Data Radiology results: report reviewed Patient Name: LEW WADDELL JR Gender: Male Date of : 1940 Referring Provider: PAMELA NOWAK Organization: [facility] Accession Number: [id number] Requested Date: August 04, 2020 09:20 Report Status: Final Requested Procedure: 1 Procedure Description: XR chest 1V ap Modality: XR Findings Reporting MD: Silas Dickey Dictation Time: August 04, 2020 09:03 Call Center Analyst: Not available Supervisor [employer]ing Date: CHEST 1 VIEW 08/04/2020 9:42 AM INDICATION / CLINICAL INFORMATION: Dyspnea with history of CHF. COMPARISON: CTA chest from 01/15/2020, 1 view of the chest from 01/13/2020. FINDINGS: SUPPORT DEVICES: Unchanged positioning of the left ICD. HEART / MEDIASTINUM: Stable. LUNGS / PLEURA: There is probable right basilar atelectasis without other significant pulmonary abnormalities. No significant pleural effusion. No pneumothorax. ADDITIONAL FINDINGS: No significant additional findings. IMPRESSION: 1. Probable right basilar atelectasis without other acute abnormalities of the chest. 2. Additional findings as above. Signer Name: Silas Dickey MD Signed: 08/04/2020 9:03 AM Workstation Name: [id number] - Medical Decision Making Acute CHF exacerbation: No evidence of pulmonary edema on chest radiograph. Patient did have appropriate diuresis with IV furosemide to provide emergency department. BNP markedly elevated from baseline. Patient states that he feels well enough to be discharged. Oxygen saturation 100% on room air. Kidney function at baseline. Patient will double his Lasix dose over the next 3 days. I do not feel that patient has current exacerbation of COPD. Does not have sign ificant cough or wheezing. He did receive DuoNeb in the emergency department. Critical care attestation.: If time is entered above; I have spent that time in minutes in the direct care of this critically ill patient, excluding procedure time. ED Disposition Clinical Impression: Acute exacerbation of congestive heart failure, Chronic left ventricular systolic heart failure, History of COPD Disposition: DC-01 TO HOME OR SELFCARE Is pt being admited?: No Does the pt Need Aspirin: No Condition: Stable Instructions: Heart Failure Exacerbation Referrals: JUANITA ANAND MD [Staff Physician] - 2-3 Days
--- NOTE | 2020-08-04 10:07 | XRay Report ---
CHEST 1 VIEW 08/04/2020 9:42 AM INDICATION / CLINICAL INFORMATION: Dyspnea with history of CHF. COMPARISON: CTA chest from 01/15/2020, 1 view of the chest from 01/13/2020. FINDINGS: SUPPORT DEVICES: Unchanged positioning of the left ICD. HEART / MEDIASTINUM: Stable. LUNGS / PLEURA: There is probable right basilar atelectasis without other significant pulmonary abnor malities. No significant pleural effusion. No pneumothorax. ADDITIONAL FINDINGS: No significant additional findings. IMPRESSION: 1. Probable right basilar atelectasis without other acute abnormalities of the chest. 2. Additional findings as above. Signer Name: Silas Dickey MD Signed: 08/04/2020 10:03 AM Workstation Name: [id number]
[2020-08-04 10:11] LABS: Hematocrit 37.1 % (35.5-45.6); Hemoglobin 11.8 gm/dl (11.8-15.2); Mean Corpuscular HGB Conc 32 % (32-34); Mean Corpuscular Volume 84 fl (84-94); Platelet Count 199 K/mm3 (140-440); Red Blood Count 4.42 M/mm3 (3.65-5.03)
[2020-08-04 10:12] LABS: Red Cell Distribution Width 20.2 % (13.2-15.2)
[2020-08-04 10:40] LABS: Albumin 4.5 g/dL (3.9-5); Calcium 9.8 mg/dL (8.4-10.2)
[2020-08-04 12:08] VITALS: BP 135/80
[2020-08-04 14:52] LABS: Total Cells Counted 100
[2020-08-04 14:53] LABS: Anisocytosis 2+; Crenated RBC 1+; Ovalocytes Few; Platelet Estimate Consistent w Auto
--- NOTE | 2020-08-06 19:06 | Electrocardiograph Report ---
[facility] Test Date: 2020-08-04 Test Time: 09:48:33 Pat Name: LEW WADDELL JR Department: Room: Gender: M Electric Sign Wirer: NURSE : 1940 Requested By: NIKITA MCBRIDE Order Number: [id number] Reading MD: Larry Denson Measurements Intervals [place] Rate: 85 P: 72 OR: 182 QRS: 235 QRSD: 132 T: 76 QT: 420 QTc: 495 Interpretive Statements Sinus rhythm Intermittent PVCs and PACs Right axis deviation Left bundle branch block No previous ECG available for comparison Electronically Signed On 08-06-2020 19:06:04 EDT by Larry Denson
== END 2020-08-04 12:09 | disposition home or self-care (01) ==
LOC: ED 09:01
DX: I11.0 Hypertensive heart disease with heart failure (principal); I50.23 Acute on chronic systolic (congestive) heart failure; J44.9 Chronic obstructive pulmonary disease, unspecified; I25.2 Old myocardial infarction; E11.9 Type 2 diabetes mellitus without complications; M19.91 Primary osteoarthritis, unspecified site; F03.90 Unspecified dementia, unspecified severity, without behavioral disturbance, psychotic disturbance, mood disturbance, and anxiety; Z98.890 Other specified postprocedural states; Z79.4 Long term (current) use of insulin; Z79.899 Other long term (current) drug therapy
CPT/HCPCS: 36415; 71045; 80053; 83880; 85007; 85025; 93005; 94640; 96374; 99284; J1940; 94644

== ENCOUNTER 2020-10-12 17:34 | Emergency (ER) | payer MEDICARE, OTHER ==
[2020-10-12 17:51] VITALS: BP 134/83
--- NOTE | 2020-10-12 18:37 | Event Note ---
ED Screening Note Date of service: 10/12/20 Time: 18:30 ED Screening Note: 80-year-old -[place] male presents to the emergency room complaining of shortness of breath for the last 4 days. Patient also complains of neck pain that shoots up to his hip but that is been going on for a month and a half and [facility] Patient states that the shortness of breath started today. He does have a history of diabetes and CHF. Patient also reports he has lower leg edema that is not improving. This initial assessment/diagnostic orders/clinical plan/treatment(s) is/are subject to change based on patients health status, clinical progression and re- assessment by fellow clinical providers in the ED. Further treatment and workup at subsequent clinical providers discretion. Patient/guardian urged not to elope from the ED as their condition may be serious if not clinically assessed and managed. Initial orders include:
--- NOTE | 2020-10-12 19:10 | XRay Report ---
CHEST 2 VIEWS INDICATION / CLINICAL INFORMATION: sob,. COMPARISON: 08/04/2020 FINDINGS: SUPPORT DEVICES: Left subclavian ICD lead, unchanged HEART / MEDIASTINUM: Stable cardiomegaly LUNGS / PLEURA: Mild/moderate increased interstitial markings No pneumothorax. ADDITIONAL FINDINGS: No significant additional findings. IMPRESSION: 1. Mild CHF Signer Name: Silverio Chadwick MD Signed: 10/12/2020 7:05 PM Workstation Name: [id number]
[2020-10-12 20:13] LABS: Basophils % (Auto) 0.7 % (0.0-1.8); Eosinophils # (Auto) 0.3 K/mm3 (0.0-0.4); Eosinophils % (Auto) 4.5 % (0.0-4.3); Hematocrit 36.2 % (35.5-45.6); Hemoglobin 11.5 gm/dl (11.8-15.2); Lymphocytes # (Auto) 1.2 K/mm3 (1.2-5.4); Lymphocytes % (Auto) 17.6 % (13.4-35.0); Mean Corpuscular HGB Conc 32 % (32-34); Mean Corpuscular Volume 77 fl (84-94); Monocytes # (Auto) 0.6 K/mm3 (0.0-0.8); Monocytes % (Auto) 8.2 % (0.0-7.3); Platelet Count 199 K/mm3 (140-440); Red Blood Count 4.72 M/mm3 (3.65-5.03)
[2020-10-12 20:20] LABS: Red Cell Distribution Width 21.6 % (13.2-15.2)
[2020-10-12 20:36] LABS: Albumin 4.1 g/dL (3.9-5); Calcium 9.7 mg/dL (8.4-10.2)
--- NOTE | 2020-10-13 00:04 | Emergency Department Report ---
ED Shortness of Breath HPI - General Chief Complaint: Dyspnea/Respdistress Stated Complaint: SOB/HEADACHE Source: patient Mode of arrival: Ambulatory Limitations: No Limitations - History of Present Illness Initial Comments: Chief complaint: shortness of breath and neck pain HPI: This is a 80-year-old male with history of hypertension, COPD, diagnosis, systolic heart failure EF 20 to 25% who presents with neck pain, shortness of breath and leg swelling for several weeks. Patient has right-sided neck pain radiating to behind the ear top of the head. He was evaluated by his private PCP and [facility]. He was treated with Tylenol and muscle relaxer. Symptoms have improved. Patient has had leg swelling. He takes furosemide. Recently his personal physician provided a second medication to "speed up" the process. Leg swelling has improved. However it is persistent. Patient has had intermittent shortness of breath that comes on suddenly. It causes him to be afraid to go to sleep at night. He does sleep on pillows. Next He currently denies headache, fever, cough, loss of taste or smell, leg pain, abdominal pain. MD Complaint: shortness of breath -: Gradual, week(s) (Several weeks) Severity: mild Consistency: intermittent Improves With: bronchodilators, upright position, other (Diuretic) Worsens With: nothing Known History Of: COPD, congestive heart failure Associated Symptoms: other (Lower extremity swelling) - Related Data Home Medications Medication Instructions Recorded Confirmed Last Taken Gabapentin 300 mg PO TID 01/09/13 08/04/20 08/03/20 Sertraline [Zoloft] 100 mg PO QDAY 01/09/13 08/04/20 08/03/20 Simvastatin 40 mg PO QHS 01/09/13 08/04/20 08/03/20 Aspirin [Adult Aspirin] 81 mg PO DAILY 04/25/19 08/04/20 08/03/20 Insulin NPH/Regular [NovoLIN 70/30] 25 unit SUB-Q BIDDIAB 04/25/19 08/04/20 08/03/20 Previous Rx's Medication Instructions Recorded Last Taken Type Ipratropium/Albuterol Sulfate 1 ampul IH TID #90 ampul.neb 01/14/19 08/03/20 Rx [DUONEB *Not for PRN Use*] Albuterol Sulfate [Proair 90 mcg IH Q4HR PRN #2 aer.pow.ba 04/11/19 08/03/20 Rx Respiclick] Ipratropium (Nf) [Atrovent HFA 2 puff IH Q6HR PRN #1 inha 04/11/19 08/03/20 Rx 17MCG/PUFF] Furosemide [Lasix TAB] 40 mg PO BID #60 tablet 04/27/19 08/03/20 Rx Potassium Chloride [K-Dur] 20 meq PO DAILY #30 tab 04/27/19 08/03/20 Rx carvediloL [Coreg] 3.125 mg PO BID #60 tablet 04/27/19 08/03/20 Rx Acetaminophen [Tylenol] 500 mg PO Q6HR PRN #30 tablet 10/13/20 Unknown Rx Cyclobenzaprine [Flexeril] 10 mg PO TID PRN #30 tablet 10/13/20 Unknown Rx Allergies Allergy/AdvReac Type Severity Reaction Status Date / Time No Known Allergies Allergy Verified 08/04/20 10:02 ED Review of Systems ROS: Stated complaint: SOB/HEADACHE Other details as noted in HPI Comment: All other systems reviewed and negative Constitutional: denies: chills, fever, malaise Respiratory: shortness of breath. denies: cough Cardiovascular: edema. denies: chest pain ED Past Medical Hx - Past Medical History Previous Medical History?: Yes Hx Hypertension: Yes (high cholesterol) Hx CVA: No Hx Heart Attack/AMI: Yes (2003) Hx Congestive Heart Failure: No Hx Diabetes: Yes Hx Pulmonary Embolism: No Hx GERD: No Hx Liver Disease: No Hx Renal Disease: No Hx Sickle Cell Disease: No Hx Arthritis: Yes Hx Headaches / Migraines: No Hx Seizures: No Hx Kidney Stones: No Hx Psychiatric Treatment: No Hx Asthma: No Hx COPD: Yes Hx Tuberculosis: No Hx Dementia: Yes Hx HIV: No - Surgical History Past Surgical History?: Yes Hx Coronary Stent: Yes Hx Internal Defibrillator: Yes - Social History Smoking Status: Former Smoker Substance Use Type: Prescribed - Medications Home Medications: Home Medications Medication Instructions Recorded Confirmed Last Taken Type Gabapentin 300 mg PO TID 01/09/13 08/04/20 08/03/20 History Sertraline [Zoloft] 100 mg PO QDAY 01/09/13 08/04/20 08/03/20 History Simvastatin 40 mg PO QHS 01/09/13 08/04/20 08/03/20 History Ipratropium/Albuterol Sulfate 1 ampul IH TID #90 ampul.neb 01/14/19 08/04/20 08/03/20 Rx [DUONEB *Not for PRN Use*] Albuterol Sulfate [Proair 90 mcg IH Q4HR PRN #2 aer.pow.ba 04/11/19 08/04/20 08/03/20 Rx Respiclick] Ipratropium (Nf) [Atrovent HFA 2 puff IH Q6HR PRN #1 inha 04/11/19 08/04/20 08/03/20 Rx 17MCG/PUFF] Aspirin [Adult Aspirin] 81 mg PO DAILY 04/25/19 08/04/20 08/03/20 History Insulin NPH/Regular [NovoLIN 70/30] 25 unit SUB-Q BIDDIAB 04/25/19 08/04/20 08/03/20 History Furosemide [Lasix TAB] 40 mg PO BID #60 tablet 04/27/19 08/04/20 08/03/20 Rx Potassium Chloride [K-Dur] 20 meq PO DAILY #30 tab 04/27/19 08/04/20 08/03/20 Rx carvediloL [Coreg] 3.125 mg PO BID #60 tablet 04/27/19 08/04/20 08/03/20 Rx Acetaminophen [Tylenol] 500 mg PO Q6HR PRN #30 tablet 10/13/20 Unknown Rx Cyclobenzaprine [Flexeril] 10 mg PO TID PRN #30 tablet 10/13/20 Unknown Rx ED Physical Exam - General Limitations: No Limitations General appearance: alert, in no apparent distress, other (Steady normal gait, ambulates without effort or dyspnea) - Head Head exam: Present: atraumatic, normocephalic - Eye Eye exam: Present: normal appearance - ENT ENT exam: Present: mucous membranes moist - Neck Neck exam: Present: normal inspection, full ROM - Respiratory Respiratory exam: Present: normal lung sounds bilaterally. Absent: respiratory distress, rales, rhonchi - Cardiovascular Cardiovascular Exam: Present: regular rate, normal rhythm, normal heart sounds. Absent: rubs, gallop - GI/Abdominal GI/Abdominal exam: Present: soft. Absent: distended, tenderness, guarding, rebound, normal bowel sounds - Rectal Rectal exam: Present: deferred - Extremities Exam Extremities exam: Present: pedal edema, other (2+ pitting edema below the knee bilaterally) - Neurological Exam Neurological exam: Present: alert, oriented X3 - Psychiatric Psychiatric exam: Present: normal affect, normal mood - Skin Skin exam: Present: warm, dry, intact, normal color. Absent: rash ED Course Vital Signs 10/12/20 17:47 Temperature 97.5 F L Respiratory 16 Rate Blood Pressure 134/83 O2 Sat by Pulse 99 Oximetry ED Medical Decision Making - Lab Data Result diagrams: 10/12/20 19:30 10/12/20 19:30 Laboratory Results - last 24 hr 10/12/20 10/12/20 10/12/20 19:30 19:30 19:30 WBC 7.0 RBC 4.72 Hgb 11.5 L Hct 36.2 MCV 77 L MCH 24 L MCHC 32 RDW 21.6 H Plt Count 199 Lymph % (Auto) 17.6 [place] % (Auto) 8.2 H Eos % (Auto) 4.5 H Baso % (Auto) 0.7 Lymph # (Auto) 1.2 [place] # (Auto) 0.6 Eos # (Auto) 0.3 Baso # (Auto) 0.0 Seg Neutrophils % 69.0 Seg Neutrophils # 4.8 Sodium 130 L Potassium 4.8 Chloride 92.7 L Carbon Dioxide 22 Anion Gap 20 BUN 46 H Creatinine 1.9 H Estimated GFR 42 BUN/Creatinine Ratio 24 Glucose 170 H Calcium 9.7 Total Bilirubin 0.70 AST 36 ALT 24 Alkaline Phosphatase 118 Troponin T 0.028 NT-Pro-B Natriuret Pep 8190 H Total Protein 8.6 H Albumin 4.1 Albumin/Globulin Ratio 0.9 10/12/20 21:49 WBC RBC Hgb Hct MCV MCH MCHC RDW Plt Count Lymph % (Auto) [place] % (Auto) Eos % (Auto) Baso % (Auto) Lymph # (Auto) [place] # (Auto) Eos # (Auto) Baso # (Auto) Seg Neutrophils % Seg Neutrophils # Sodium Potassium Chloride Carbon Dioxide Anion Gap BUN Creatinine Estimated GFR BUN/Creatinine Ratio Glucose Calcium Total Bilirubin AST ALT Alkaline Phosphatase Troponin T 0.024 NT-Pro-B Natriuret Pep Total Protein Albumin Albumin/Globulin Ratio - EKG Data 10/13/20 00:03 EKG@1841 EKG interpreted by me Normal sinus rhythm rate 95 bpm left axis deviatio LVH left bundle branch block no ST elevation - Radiology Data Radiology results: report reviewed Patient Name: LEW WADDELL JR Gender: Male Date of : 1940 Referring Provider: PAMELA NOWAK Organization: 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 COMPARISON: 08/04/2020 FINDINGS: SUPPORT DEVICES: Left subclavian ICD lead, unchanged HEART / MEDIASTINUM: Stable cardiomegaly LUNGS / PLEURA: Mild/moderate increased interstitial markings No pneumothorax. ADDITIONAL FINDINGS: No significant additional findings. IMPRESSION: 1. Mild CHF Signer Name: Silverio Chadwick MD Signed: 10/12/2020 6:05 PM Workstation Name: [id number] - Medical Decision Making 1. Cervical disc disease: I refilled patient's Tylenol and Flexeril according to his request, I prescribed 30 tablets each of acetaminophen 500 mg tablets and Flexeril 10 mg tablet 2. COPD and congestive heart failure: No indication of acute exacerbation of either of these entities. Patient required extensive education regarding COPD and CHF. He appears to be compliant with his medications. CBC unremarkable chemistry revealed CKD, downtrending troponin ruled out acute myocardial infarction, BNP above baseline however patient appears well comfortable without any distress chest radiograph revealed only mild pulmonary edema Critical care attestation.: If time is entered above; I have spent that time in minutes in the direct care of this critically ill patient, excluding procedure time. ED Disposition Clinical Impression: COPD (chronic obstructive pulmonary disease), CHF (congestive heart failure), Cervical disc disease Disposition: HOME / SELF CARE / HOMELESS Is pt being admited?: No Does the pt Need Aspirin: No Condition: Stable Instructions: Chronic Obstructive Pulmonary Disease (ED) Prescriptions: Acetaminophen [Tylenol] 500 mg PO Q6HR PRN #30 tablet PRN Reason: Pain , Severe (7-10) Cyclobenzaprine [Flexeril] 10 mg PO TID PRN #30 tablet PRN Reason: muscle relaxant Referrals: YOANDY ASHBY MD [Primary Care Provider] - 3-5 Days
--- NOTE | 2020-10-14 08:57 | Electrocardiograph Report ---
[facility] Test Date: 2020-10-12 Test Time: 18:41:23 Pat Name: LEW WADDELL JR Department: Room: Gender: M Transferrer: COLLINS : 1940 Requested By: PAMELA NOWAK Order Number: [id number] Reading MD: Zeke Alston Measurements Intervals [place] Rate: 95 P: 88 [place]: 205 QRS: -52 QRSD: 129 T: 108 QT: 410 QTc: 506 Interpretive Statements Sinus rhythm Multiple ventricular premature complexes Nonspecific IVCD with LAD LVH with secondary repolarization abnormality Inferior infarct, old Compared to ECG 08/04/2020 09:48:33 Intraventricular conduction delay now present Left ventricular hypertrophy now present Right-axis deviation no longer present Left bundle-branch block no longer present Electronically Signed On 10-14-2020 8:56:42 EDT by Zeke Alston
== END 2020-10-13 00:10 | disposition home or self-care (01) ==
LOC: ED 17:34
DX: J44.9 Chronic obstructive pulmonary disease, unspecified (principal); I11.0 Hypertensive heart disease with heart failure; M50.90 Cervical disc disorder, unspecified, unspecified cervical region; E11.8 Type 2 diabetes mellitus with unspecified complications; M19.90 Unspecified osteoarthritis, unspecified site; E78.00 Pure hypercholesterolemia, unspecified; F03.90 Unspecified dementia, unspecified severity, without behavioral disturbance, psychotic disturbance, mood disturbance, and anxiety; Z98.890 Other specified postprocedural states; Z87.891 Personal history of nicotine dependence
CPT/HCPCS: 36415; 71046; 80053; 83880; 84484; 85025; 93005; 99283